=== PATIENT | female | born 1930 | race Caucasian/White ===

== ENCOUNTER 2016-07-03 09:59 | Emergency (ER) | payer OTHER ==
[~2016-07-03] VITALS: Ht 167.6 cm; Wt 73.9 kg
[~2016-07-03 09:59] MED LIST: ACET-1257 PO; ARC5 PO; ASPEC81 PO; ATEN-175 PO; CRANPOW PO; INSU70IN2 SC; LISI-788 PO; LOVA10TA3 PO; MEMA10TA PO; MTHH1 PO; MULT-884 PO; OXYC1TAB3 PO; TRAZ100T29 PO; VITAMIN C PO
[2016-07-03 10:19] VITALS: TEMP 36.9; Ht 167.6 cm; Wt 73.9 kg
[2016-07-03] MEDS ORDERED: SODIUM CHLORIDE 0.9% 1000ML 1,000 ML IV STA (10:26)
[2016-07-03 10:33] VITALS: O2SAT 98
[2016-07-03 10:43] LABS: BASO % 0.3 %; BASO ABS # 0.02 K/uL (0-0.2); COMPLETE YES; EOS % 1.6 %; HEMATOCRIT 35.1 % (37-47); IG% 0.6 %; LYMPH % 19.2 %; MEAN CELL VOLUME 79.6 fL (80-100); MEAN CORPUSCULAR HEMOGLOBIN 25.9 pg (25-34); MEAN CORPUSCULAR HGB CONC 32.5 g/dl (32-36); MEAN PLATELET VOLUME 9.5 fL (7.4-10.4); MONO % 14.2 %; NEUT % 64.1 %; PLATELET COUNT 250 K/uL (130-400); RED BLOOD COUNT 4.41 M/uL (4.2-5.4); WHITE BLOOD COUNT 6.77 K/uL (4.8-10.8)
--- NOTE | 2016-07-03 10:46 | DIAGNOSTIC IMAGING REPORT ---
CHEST ONE VIEW PORTABLE CLINICAL HISTORY: Weakness COMPARISON STUDY: 09/30/2015 FINDINGS: The cardiac and mediastinal contours remain stable. There is no evidence of focal pulmonary consolidation. There is no evidence of failure. No pleural effusions are visualized.[ There are postsurgical changes present within the right shoulder. Indistinctness left cardiophrenic angle remains unchanged and is likely secondary to a fat pad. IMPRESSION: AP portable study. No active disease in the chest. Electronically signed by: Amado Guzman M.D. 07/03/2016 10:45 AM
[2016-07-03 10:51] LABS: ALT/SGPT 17 U/L (12-78); AST/SGOT 20 U/L (15-37); BLOOD UREA NITROGEN 10 mg/dl (7-18); BUN/CREATININE RATIO 8.8 (10-20); CARBON DIOXIDE 26 mmol/L (21-32); CHLORIDE 95 mmol/L (98-107); GLUCOSE 275 mg/dl (70-99); POTASSIUM 3.7 mmol/L (3.5-5.1); SODIUM 131 mmol/L (136-145)
[2016-07-03 10:52] LABS: PARTIAL THROMBOPLASTIN RATIO 1.2; PROTHROMBIN TIME (PATIENT) 11.2 SECONDS (9.0-12.0)
[2016-07-03] MEDS ORDERED: GUAI100S75 PO (10:52)
[2016-07-03] MEDS ORDERED: PROP0.6D OPB (10:52)
[2016-07-03 10:56] LABS: ALKALINE PHOSPHATASE 122 U/L (45-117)
--- NOTE | 2016-07-03 11:01 | DIAGNOSTIC IMAGING REPORT ---
CT HEAD WITHOUT CONTRAST (CT) CLINICAL HISTORY: New onset weakness COMPARISON STUDY: 07/27/2014 TECHNIQUE: Axial CT of the brain is performed from the vertex to the skull base. IV contrast was not administered for this examination. CT DOSE: 537.48 mGy.cm FINDINGS: No intra or extra-axial mass lesions are visualized. There is no CT evidence of acute cortical infarction. There is no evidence of midline shift. There is no acute hemorrhage. No calvarial fractures are visualized. There are patchy white matter hypodensities likely on a small vessel basis. There is mild ventricular dilatation, proportional to the degree of volume loss There is mild bilateral maxilla sinus mucosal thickening. There is opacification of multiple ethmoid air cells. There is mild mucosal thickening within the sphenoid. IMPRESSION: 1. No acute intracranial findings 2. Inflammatory changes within the paranasal sinuses Electronically signed by: Amado Guzman M.D. 07/03/2016 10:59 AM
[2016-07-03 11:10] LABS: URINE APPEARANCE CLEAR (CLEAR); URINE BILIRUBIN NEG (NEG); URINE COLOR YELLOW; URINE EPITHELIAL CELL AUTO 0-5 /lpf (0-5); URINE NITRITE NEG (NEG); URINE PH 6.5 (4.5-7.5); URINE SPECIFIC GRAVITY 1.009 (1.000-1.030); UROBILINOGEN NEG (NEG); ZZURINE CULT IF INDIC CATH YES
[2016-07-03 11:16] LABS: MANUAL MICROSCOPIC REQUIRED? NO; REVIEW REQ? NO
[2016-07-03] MEDS ORDERED: CEFTRIAXONE SOD INJ 1 GM ADDVIAL IV STA (11:18)
[2016-07-03] MEDS ORDERED: CEFD1CAP14 PO (13:09)
[2016-07-03 13:28] VITALS: BP 134/56
[2016-07-03 13:30] VITALS: PULSE 93; O2SAT 98
--- NOTE | 2016-07-03 13:40 | EMERGENCY ROOM VISIT NOTE ---
History Report prepared by Eloy: Alix England Under the Supervision of: Dr. Wilson Wills D.O. First contact with patient: 10:15 Chief Complaint: DIZZY Stated Complaint: DIZZY History of Present Illness The patient is a 85 year old female who presents to the Emergency Room with complaints of resolved dizziness that started this morning. The patient came to the ED via ambulance from [facility]. She describes the dizziness as feeling lightheaded like she was going to experience syncope. The dizziness seemed to be worse with changes in position. She states that it did not feel like the room was spinning. The patient is unsure of when exactly the dizziness resolved , but she is not experiencing it now. She states that she woke up this morning and "wasn't feeling herself." She is unable to explain exactly how she felt. The patient thinks that her sugar numbers were good this morning. Pt denies headache, change in vision, fevers, chest pain, shortness of breath, abdominal pain, nausea, vomiting, diarrhea and weakness or numbness in arms or legs. Her last bowel movement was prior to being evaluated. The patient's daughter states that the jail staff called her and informed her that the patient was going into the ED because she seemed more confused than normal. The patient's daughter states that currently the patient does not seem to be more confused than normal. The patient's daughter adds that the patient has become gradually more confused over the last month. Source of History: patient Onset: this morning Position: head Quality: other (lightheadedness like near-syncope) Timing: resolved Modifying Factors (Worsening): other (changes in position) Associated Symptoms: No SOB, No abdominal pain, No chest pain, No fevers, No headache, No nausea, No vomiting, No weakness Note: no change in vision Review of Systems See HPI for pertinent positives & negatives. A total of 10 systems reviewed and were otherwise negative. Past Medical & Surgical Medical Problems: (1) Diabetes Family History No pertinent family history Social History Smoking Status: Never Smoker Alcohol Use: none Housing Status: lives alone Occupation Status: retired Current/Historical Medications Scheduled Aspirin Enteric Coated (Ecotrin Or Generic *), 81 MG PO DAILY Cefdinir (Omnicef), 300 MG PO Q12H Donepezil Hcl (Aricept *), 5 MG PO HS Guaifenesin (Siltussin Sa), 5-10 ML PO Q4 Insulin Isophan/Regular (Novolin 70/30), 19 UNITS SC QAM Insulin Isophan/Regular (Novolin 70/30), 10 SC QPM Lisinopril/Hctz (Zestoretic 20MG/25MG), 0.5 TAB PO QAM Lovastatin (Mevacor), 10 MG PO QPM Memantine Hcl (Namenda), 10 MG PO BID Methenamine Hippurate (Methenamine Hippurate), 1 GM PO BID Multiple Vitamin (Multi Vitamin Daily), 1 TAB PO DAILY Propylene Glycol-Glycerin (Soothe), 1-2 DROPS OPB DAILY Trazodone Hcl (Trazodone), 100 MG PO DHS [Cranberry], 1 TABLET PO DAILY [Vitamin C], 1 TAB PO BID Scheduled PRN Acetaminophen (Tylenol Extra Strength), 1,000 MG PO DAILY PRN for PRN Allergies Coded Allergies: Clotrimazole (Unverified Allergy, Intermediate, ., 07/03/16) Sulfa Drugs (Verified Allergy, Unknown, HIVES, 07/03/16) Physical Exam Vital Signs Date Time Temp Pulse Resp B/P Pulse Ox O2 Delivery O2 Flow Rate FiO2 07/03/16 13:30 93 23 98 07/03/16 13:28 134/56 07/03/16 13:19 131/59 07/03/16 13:00 97 24 97 07/03/16 12:59 07/03/16 12:30 102 16 97 07/03/16 12:29 155/71 07/03/16 12:02 80 07/03/16 12:00 91 15 07/03/16 11:59 143/79 07/03/16 11:30 83 18 152/79 98 Room Air 07/03/16 10:33 98 Room Air 07/03/16 10:33 98 Room Air 07/03/16 10:32 105 133/78 110 135/76 116 112/66 07/03/16 10:19 36.9 111 20 156/80 98 Room Air Physical Exam GENERAL: alert, sitting up in bed, ambulates through room without difficulty, well appearing, well nourished, no distress, non-toxic EYE EXAM: normal conjunctiva, PERRL and EOM's intact OROPHARYNX: no exudate, no erythema, lips, buccal mucosa, and tongue normal and mucous membranes are moist NECK: supple, no nuchal rigidity, no adenopathy, non-tender LUNGS: Clear to auscultation. Normal chest wall mechanics HEART: tachycardic rate, no murmurs, S1 normal and S2 normal ABDOMEN: abdomen soft, non-tender, normo-active bowel sounds, no masses, no rebound or guarding. BACK: Back is symmetrical on inspection and there is no deformity, no midline tenderness, no CVA tenderness. SKIN: no rashes and no bruising UPPER EXTREMITIES: upper extremities are grossly normal. LOWER EXTREMITIES: No pitting edema. NEURO EXAM: Normal sensorium, cranial nerves II-XII intact, normal speech, no weakness of arms, no weakness of legs. No drift. Finger to nose intact. Gross sensation intact. Rapid alternating movements of upper extremities intact bilaterally. Ambulates without difficulty or assistance. Medical Decision & Procedures ER Provider Diagnostic Interpretation: Xray results per the radiologist and my interpretation. Other results have been interpreted by the radiologist and reviewed by me. CHEST ONE VIEW PORTABLE CLINICAL HISTORY: Weakness COMPARISON STUDY: 09/30/2015 FINDINGS: The cardiac and mediastinal contours remain stable. There is no evidence of focal pulmonary consolidation. There is no evidence of failure. No pleural effusions are visualized.[ There are postsurgical changes present within the right shoulder. Indistinctness left cardiophrenic angle remains unchanged and is likely secondary to a fat pad. IMPRESSION: AP portable study. No active disease in the chest. Electronically signed by: Amado Guzman M.D. 07/03/2016 10:[address] HEAD WITHOUT CONTRAST (CT) CLINICAL HISTORY: New onset weakness COMPARISON STUDY: 07/27/2014 TECHNIQUE: Axial CT of the brain is performed from the vertex to the skull base. IV contrast was not administered for this examination. CT DOSE: 537.48 mGy.cm FINDINGS: No intra or extra-axial mass lesions are visualized. There is no CT evidence of acute cortical infarction. There is no evidence of midline shift. There is no acute hemorrhage. No calvarial fractures are visualized. There are patchy white matter hypodensities likely on a small vessel basis. There is mild ventricular dilatation, proportional to the degree of volume loss There is mild bilateral maxilla sinus mucosal thickening. There is opacification of multiple ethmoid air cells. There is mild mucosal thickening within the sphenoid. IMPRESSION: 1. No acute intracranial findings 2. Inflammatory changes within the paranasal sinuses Electronically signed by: Amado Guzman M.D. 07/03/2016 10:59 AM Laboratory Results 07/03/16 09:44 Red Blood Count 4.41, Mean Corpuscular Volume 79.6, Mean Corpuscular Hemoglobin 25.9, Mean Corpuscular Hemoglobin Concent 32.5, Mean Platelet Volume 9.5, Neutrophils (%) (Auto) 64.1, Lymphocytes (%) (Auto) 19.2, Monocytes (%) (Auto) 14.2, Eosinophils (%) (Auto) 1.6, Basophils (%) (Auto) 0.3, Neutrophils # (Auto ) 4.34, Lymphocytes # (Auto) 1.30, Monocytes # (Auto) 0.96, Eosinophils # (Auto ) 0.11, Basophils # (Auto) 0.02 07/03/16 09:44 Test 07/03/16 09:44 07/03/16 10:41 White Blood Count 6.77 K/uL (4.8-10.8) Red Blood Count 4.41 M/uL (4.2-5.4) Hemoglobin 11.4 g/dL (12.0-16.0) Hematocrit 35.1 % (37-47) Mean Corpuscular Volume 79.6 fL (80-100) Mean Corpuscular Hemoglobin 25.9 pg (25-34) Mean Corpuscular Hemoglobin Concent 32.5 g/dl (32-36) Platelet Count 250 K/uL (130-400) Mean Platelet Volume 9.5 fL (7.4-10.4) Neutrophils (%) (Auto) 64.1 % Lymphocytes (%) (Auto) 19.2 % Monocytes (%) (Auto) 14.2 % Eosinophils (%) (Auto) 1.6 % Basophils (%) (Auto) 0.3 % Neutrophils # (Auto) 4.34 K/uL (1.4-6.5) Lymphocytes # (Auto) 1.30 K/uL (1.2-3.4) Monocytes # (Auto) 0.96 K/uL (0.11-0.59) Eosinophils # (Auto) 0.11 K/uL (0-0.5) Basophils # (Auto) 0.02 K/uL (0-0.2) RDW Standard Deviation 42.4 fL (36.4-46.3) RDW Coefficient of Variation 14.7 % (11.5-14.5) Immature Granulocyte % (Auto) 0.6 % Immature Granulocyte # (Auto) 0.04 K/uL (0.00-0.02) Prothrombin Time 11.2 SECONDS (9.0-12.0) Prothromb Time International Ratio 1.0 (0.9-1.1) Activated Partial Thromboplast Time 30.9 SECONDS (21.0-31.0) Partial Thromboplastin Ratio 1.2 Anion Gap 10.0 mmol/L (3-11) Est Creatinine Clear Calc Drug Dose 37.0 ml/min Estimated GFR () 52.3 Estimated GFR (Non- 45.1 BUN/Creatinine Ratio 8.8 (10-20) Calcium Level 8.0 mg/dl (8.5-10.1) Magnesium Level 2.0 mg/dl (1.8-2.4) Total Bilirubin 0.4 mg/dl (0.2-1) Direct Bilirubin 0.1 mg/dl (0-0.2) Aspartate Amino Transf (AST/SGOT) 20 U/L (15-37) Alanine Aminotransferase (ALT/SGPT) 17 U/L (12-78) Alkaline Phosphatase 122 U/L (45-117) Troponin I < 0.015 ng/ml (0-0.045) Total Protein 6.4 gm/dl (6.4-8.2) Albumin 2.9 gm/dl (3.4-5.0) Urine Color YELLOW Urine Appearance CLEAR (CLEAR) Urine pH 6.5 (4.5-7.5) Urine Specific [place] 1.009 (1.000-1.030) Urine Protein NEG (NEG) Urine Glucose (UA) 1+ (NEG) Urine Ketones NEG (NEG) Urine Occult Blood NEG (NEG) Urine Nitrite NEG (NEG) Urine Bilirubin NEG (NEG) Urine Urobilinogen NEG (NEG) Urine Leukocyte Esterase MODERATE (NEG) Urine WBC (Auto) >30 /hpf (0-5) Urine RBC (Auto) 0-4 /hpf (0-4) Urine Hyaline Casts (Auto) 1-5 /lpf (0-5) Urine Epithelial Cells (Auto) 0-5 /lpf (0-5) Urine Bacteria (Auto) 2+ (NEG) Laboratory results per my review. Medications Administered Medications (Trade) Dose Ordered Sig/Rocio Route Start Time Stop Time Status Last Admin Dose Admin Sodium Chloride (Nss 1000ml) 1,000 ml @ 999 mls/hr Q1H1M STAT IV 07/03/16 10:26 07/03/16 11:26 DC 07/03/16 10:43 999 MLS/HR Ceftriaxone Sodium (Rocephin Inj) 1 gm NOW STAT IV 07/03/16 11:18 07/03/16 11:19 DC 07/03/16 11:28 1 GM ECG Indication: altered mental status Rate (beats per minute): 103 Rhythm: sinus tachycardia Findings: other (normal axis, poor baseline in inferior leads) ED Course ED COURSE: Vital signs were reviewed and showed tachycardia and hypertension. The patients medical record was reviewed The above diagnostic studies were performed and reviewed. ED treatments and interventions as stated above. 1017: The patient was evaluated in room B11. A complete history and physical examination was performed. 1026: Ordered Sodium Chloride 1000 ml @ 999 mls/hr IV 1118: Ordered Rocephin Inj 1 gm IV 1141: I reassessed and updated the patient. 1208: I discussed the patient's case with the staff at [facility]. They said that they sent the patient over because she was not talking and interacting with people like she normally does. She also appeared to be more confused. 1237: I had a long conversation with the patient's daughter. She prefers to take the patient back to the jail. I also reviewed the patient's previous urine cultures. She had 3 previous UTIs that were all susceptible to Levaquin. 1318: Upon reevaluation, the patient is doing well. I discussed my findings with the patient and her daughter. They understand and agree with the treatment plan. Based on the patients age, coexisting illnesses, exam and lab findings the decision to treat as an outpatient was made. The patient remained stable while under my care. The patient appeared well at the time of discharge. Medical Decision Differential diagnosis includes etiologies such as benign positional vertigo, dehydration, hypovolemia, anemia, tumor, infection, hypoglycemia, electrolyte abnormalities, cardiac sources, intracerebral event, toxicologic, neurologic, as well as others were entertained. Patient is an 85-year-old female who presents the ER for confusion. Family notes this has been worsening with past 2 months. jail today says she was sitting in chair and she was not as interactive as she normally is. Daughter notes that she told her 2 different stories of how she went to bed last night and this is not normal for her. Patient is otherwise awake alert oriented to person place or time. She is nonfocal on exam. Completely neurologically intact. CT head was normal. She describes orthostatic lightheadedness. CBC along with BMP, LFTs are unremarkable. UA shows a UTI. Previous cultures were reviewed and she is placed on Omnicef following a dose of IV Rocephin. Vitals remained stable in the ER. I discussed case with jail and they are agreeable to taking her back on oral antibiotics. Family was also comfortable with her leaving. I thought it was reasonable as she was nonfocal I do not believe this is a stroke. Discussed with Pt concerning signs and symptoms to watch out for. Pt was instructed to follow up with their PCP and discussed with the patient their option to return to the ED at anytime for persistent or worsening symptoms. The appropriate anticipatory guidance and out-patient management, including indications for return to the emergency department, were explained at length to the patient and understood. Consults Time Called: 1203 Consulting Physician: [facility] Staff Returned Call: 1208 I discussed the patient's case with the staff at [facility]. They said that they sent the patient over because she was not talking and interacting with people like she normally does. She also appeared to be more confused. Impression Primary Impression: UTI (urinary tract infection) Additional Impressions: Altered mental status, Confusion Scribe Attestation The scribe's documentation has been prepared under my direction and personally reviewed by me in its entirety. I confirm that the note above accurately reflects all work, treatment, procedures, and medical decision making performed by me. Departure Information Dispostion Home / Self-Care Prescriptions Cefdinir (Omnicef) 300 Mg Cap 300 MG PO Q12H for 10 Days, #20 CAP Prov: Wilson Wills, DO 07/03/16 Referrals Derian Davis M.D. (PCP) Forms HOME CARE DOCUMENTATION FORM, IMPORTANT VISIT INFORMATION Patient Instructions A Signature Page, ED UTI Cystitis Female, My [facility] Additional Instructions Please follow up with your primary care doctor with in the next 24 hours. Any worsening of your symptoms, please return to the ED immediately. This includes fevers greater than 100.4, worsening confusion, passing out, or any other concerning signs or symptoms from your standpoint. Please take antibiotics as prescribed any worsening of your symptoms should return to the ER immediately.
--- NOTE | 2016-07-05 14:50 | Pharmacy Progress Note ---
ED Pharmacist Culture FollowUp Date of Service: Jul 05, 2016. Patient was sent home with a prescription for cefdinir, which should cover the Enterobacter cloacae growing from the patient's urine culture (indicated by ceftriaxone sensitivity)
== END 2016-07-03 13:50 | disposition home or self-care (01) ==
LOC: EDBD 09:59 → C.EDB 10:01
DX: N39.0 Urinary tract infection, site not specified (principal); R41.82 Altered mental status, unspecified; R41.0 Disorientation, unspecified; R42 Dizziness and giddiness; R00.0 Tachycardia, unspecified; I10 Essential (primary) hypertension; E11.9 Type 2 diabetes mellitus without complications; Z79.4 Long term (current) use of insulin; Z79.82 Long term (current) use of aspirin; Z79.899 Other long term (current) drug therapy; Z88.2 Allergy status to sulfonamides; Z88.8 Allergy status to other drugs, medicaments and biological substances

== ENCOUNTER → 2016-07-12 | Outpatient (CLI) | payer OTHER ==
[~2016-07-12] MED LIST changes: -ATEN-175 PO; +CEFD1CAP14 PO; +GUAI100S75 PO; -OXYC1TAB3 PO; +PROP0.6D OPB
[2016-07-12 14:09] LABS: URINE APPEARANCE TURBID (CLEAR); URINE BILIRUBIN NEG (NEG); URINE COLOR DK YELLOW; URINE EPITHELIAL CELL AUTO 20-30 /lpf (0-5); URINE NITRITE NEG (NEG); URINE SPECIFIC GRAVITY 1.006 (1.000-1.030); UROBILINOGEN NEG (NEG)
[2016-07-12 14:21] LABS: MANUAL MICROSCOPIC REQUIRED? NO; REVIEW REQ? YES
== END | disposition home or self-care (01) ==
LOC: C.LABWYN 12:42
PROVIDERS: ATTEND Family Medicine
DX: N39.0 Urinary tract infection, site not specified (principal)

== ENCOUNTER → 2016-11-22 | Outpatient (CLI) | payer OTHER ==
[~2016-11-22] MED LIST changes: +AMOX875T PO; +ASCO1CAP3 PO; +ASPI-435 PO; +BCTCR/30 EXT; -CEFD1CAP14 PO; +CRAN1TAB3 PO; +DONE1TAB25 PO; +FAMO1TAB47 PO; +FAMO20TA11 PO; +INSDGI INJ; +INSDGI SC; +INSU100I23 INJ; +MVC20 PO
[2016-11-22 12:39] LABS: BLOOD UREA NITROGEN 5 mg/dl (7-18); BUN/CREATININE RATIO 5.3 (10-20); CARBON DIOXIDE 28 mmol/L (21-32); CHLORIDE 104 mmol/L (98-107); CREATININE 0.89 mg/dl (0.60-1.20); GLUCOSE 155 mg/dl (70-99); POTASSIUM 3.6 mmol/L (3.5-5.1); SODIUM 140 mmol/L (136-145)
[2016-11-22 12:40] LABS: CALCIUM 8.8 mg/dl (8.5-10.1)
[2016-11-22 12:42] LABS: ESTIMATED AVERAGE GLUCOSE 128 mg/dl; HA1C FLAG Normal (Normal)
== END | disposition home or self-care (01) ==
LOC: C.LABWYN 15:54
PROVIDERS: ATTEND Family Medicine
DX: E11.9 Type 2 diabetes mellitus without complications (principal); F03.91 Unspecified dementia, unspecified severity, with behavioral disturbance; I10 Essential (primary) hypertension

== ENCOUNTER 2017-04-20 15:28 | Inpatient (IN) | payer OTHER ==
[~2017-04-20] VITALS: Ht 160 cm; Wt 64.0 kg
[~2017-04-20 15:28] MED LIST changes: -AMOX875T PO; -ASCO1CAP3 PO; -ASPI-435 PO; -BCTCR/30 EXT; -CRAN1TAB3 PO; -DONE1TAB25 PO; -FAMO1TAB47 PO; -FAMO20TA11 PO; -INSDGI INJ; -INSDGI SC; -INSU100I23 INJ; -MVC20 PO
[2017-04-20] MEDS ORDERED: ONDANSETRON INJ 2 MG/ML 2 ML VIAL IV STA ×2 (15:40→18:10)
[2017-04-20 16:12] LABS: BASO % 0.3 %; BASO ABS # 0.03 K/uL (0-0.2); COMPLETE YES; HEMATOCRIT 30.4 % (37-47); IG% 0.2 %; LYMPH % 17.7 %; LYMPH ABS # 1.57 K/uL (1.2-3.4); MEAN CELL VOLUME 77.6 fL (80-100); MEAN CORPUSCULAR HGB CONC 32.2 g/dl (32-36); MEAN PLATELET VOLUME 9.1 fL (7.4-10.4); MONO % 9.4 %; NEUT % 70.4 %; PLATELET COUNT 336 K/uL (130-400); RED BLOOD COUNT 3.92 M/uL (4.2-5.4); WHITE BLOOD COUNT 8.85 K/uL (4.8-10.8)
[2017-04-20 16:31] LABS: BUN/CREATININE RATIO 14.2 (10-20); CALCIUM 8.4 mg/dl (8.5-10.1); CREATININE 0.88 mg/dl (0.60-1.20); POTASSIUM 3.3 mmol/L (3.5-5.1)
[2017-04-20] MEDS ORDERED: ASCO1CAP3 PO (16:42)
[2017-04-20] MEDS ORDERED: DONE1TAB25 PO (16:42)
[2017-04-20] MEDS ORDERED: CRAN1TAB3 PO (16:42)
[2017-04-20] MEDS ORDERED: ASPI-435 PO (16:42)
[2017-04-20] MEDS ORDERED: BCTCR/30 EXT (16:42)
[2017-04-20] MEDS ORDERED: OPTIRAY 320 IV PRN (19:15)
--- NOTE | 2017-04-20 19:28 | DIAGNOSTIC IMAGING REPORT ---
CT SCAN OF THE ABDOMEN AND PELVIS WITH IV CONTRAST CLINICAL HISTORY: Right-sided abdominal pain. Palpable mass. COMPARISON STUDY: No priors. TECHNIQUE: Following the IV administration of 116 cc of Optiray 320, CT scan of the abdomen and pelvis is performed from the lung bases to the proximal femora. Images are reviewed in the axial, sagittal, and coronal planes. There is an IV malfunction during the initial contrast injection. IV contrast was then administered without complication. A dose lowering technique was utilized adhering to the principles of ALARA. The examination is degraded by suboptimal positioning within the CT gantry as well as by motion artifact. CT DOSE: 367.52 mGy.cm FINDINGS: Lung bases: The heart is normal in size and without pericardial effusion. There are coronary artery calcifications. A small hiatal hernia is noted. Mild wall thickening is suggested in the distal esophagus. There are trace pleural effusions with dependent atelectasis. No airspace consolidation is seen typical for pneumonia. Liver: The contrast-enhanced liver is normal in size, contour, and attenuation. There is mild central intrahepatic biliary ductal dilatation. The hepatic veins and portal veins are patent. Gallbladder: Contracted versus surgically absent. Spleen: Normal in size and attenuation. Pancreas: Atrophic and grossly unremarkable. Adrenal glands: Unremarkable. Kidneys: The contrast enhanced kidneys are atrophic and without hydronephrosis. The kidneys enhance symmetrically. Excreted contrast is present within the renal collecting system bilaterally secondary to IV malfunction. There is a 2.6 cm left renal cyst. Additional scattered subcentimeter cortical hypodensities also likely represent cysts but are too small for definitive characterization. Abdominal vasculature: The abdominal aorta is normal in course and caliber noting advanced atherosclerotic calcification. Bowel: The stomach and proximal small bowel loops are distended and fluid-filled. Small bowel loops measure up to 4.2 cm in diameter. The distal small bowel and colon are relatively decompressed, and a transition point is identified in the right lower quadrant on image #313. The appearance is consistent with a small bowel obstruction. There is approximately 4 cm circumferential mass lesion suggested in the transverse colon on axial image #212 with tiny surrounding pericolonic lymph nodes. A duodenal diverticulum is noted. There is advanced diverticulosis of left colon without CT evidence of acute diverticulitis. The appendix is well-visualized and normal. Peritoneum: There is trace free fluid in the pelvis. No intraperitoneal free air is seen. There is a fat-containing ventral hernia seen on axial image #260. There is fluid within the hernia sac. Mild induration is seen within the ventral abdominal pannus. Lymphadenopathy: None. Pelvic viscera: There are small foci of gas within the bladder lumen. The bladder is otherwise normal as imaged. The uterus is surgically absent. No adnexal lesion is seen. Skeletal structures: The skeletal structures are heterogeneously osteopenic. There is mild to moderate lumbosacral spondylosis and scoliosis. There is tobacco thickening and sclerosis of the T9 vertebral body with mild loss of height. The appearance suggests Pagetoid change. No definite lytic or blastic lesions are seen. IMPRESSION: 1. Findings are consistent with a small bowel obstruction with a transition point identified involving a loop of ileum in the right lower quadrant. The distal small bowel and colon are decompressed. 2. No intraperitoneal free air is seen. Trace free fluid in the pelvis is likely on a reactive basis. 3. There is an approximately 4 cm annular mass lesion suggested in the transverse colon. This should be considered colon cancer until proven otherwise and follow-up with colonoscopy is recommended for further assessment. This does not represent the site of obstruction. 4. There are small foci of gas within the bladder lumen, likely related to instrumentation. Correlation with urinalysis will be required. 5. Trace pleural effusions. 6. Circumferential wall thickening is suggested in the distal esophagus. Correlate clinically for evidence of esophagitis. If further assessment is desired then endoscopy would be appropriate. 7. There is a large fat and fluid containing ventral hernia. 8. There is trabecular thickening and dense sclerosis seen involving the body of T9. 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 A solitary osteoblastic metastasis is considered much less likely. 9. Additional findings as above. Electronically signed by: Stephan Geller M.D. 04/20/2017 7:27 PM Dictated Date/Time: 04/20/2017 7:12 PM
[2017-04-20] MEDS ORDERED: ONDANSETRON INJ 2 MG/ML 2 ML VIAL IV PRN (20:30)
[2017-04-20] MEDS ORDERED: ACETAMINOPHEN IV 100 ML IV PRN (20:30)
[2017-04-20] MEDS ORDERED: MoRPHine SULFATE 2 MG/ML CARP IV PRN (20:30)
[2017-04-20] MEDS ORDERED: GLUCAGON FOR INJ 1 MG VIAL SQ PRN (20:30)
[2017-04-20] MEDS ORDERED: DEXTROSE 50% 50 ML SYR IV PRN (20:30)
[2017-04-20] MEDS ORDERED: GLUCOSE 10 TABS/TUBE PO PRN (20:30)
[2017-04-20] MEDS ORDERED: MoRPHine SULFATE 4 MG/ML 1 ML CARP\\VIAL IV PRN (20:30)
[2017-04-20] MEDS ORDERED: GLUCOSE 40% GEL 15 GM TUBE PO PRN (20:30)
[2017-04-20 20:39] VITALS: BMI 25.0
[2017-04-20] MEDS ORDERED: INSULIN ASPART 100 UNITS/ML 3 ML PEN SC SCH (21:00)
[2017-04-20] MEDS ORDERED: PIPERACILL/TAZOBAC IV 3.375 GM in DEXTROSE 5% 100ML IV STA (21:21)
[2017-04-20] MEDS ORDERED: PIPERACILL/TAZOBAC CONSULT ACTIVE PRN (21:30)
--- NOTE | 2017-04-20 21:51 | EMERGENCY ROOM VISIT NOTE ---
History Report prepared by Eloy: Pablo Castillo Under the Supervision of: Dr. Thiago Shelton M.D. First contact with patient: 15:34 Chief Complaint: ABDOMINAL PAIN Stated Complaint: AB PAIN History of Present Illness The patient is a 86 year old female who presents to the Emergency Room with complaints of constant central abdominal pain beginning five days ago. She states that she had diarrhea six days ago which resolved after one day. She states that she developed an abdominal "bulge" shortly after this which is painful to the touch. The patient does not believe that her abdomen is getting larger. Her pain worsens with eating. Her pain radiates into her lower chest. The patient's last normal bowel movement was this morning. She also complains of nausea. She denies pain with urination, fevers, black or bloody stools, or SOB. Source of History: patient Onset: Five days ago Position: abdomen (central) Timing: constant Modifying Factors (Worsening): eating Associated Symptoms: + nausea, + diarrhea (resolved), No fevers, No SOB, No melena, No hematochezia, No urinary symptoms (pain with urination) Review of Systems See HPI for pertinent positives & negatives. A total of 10 systems reviewed and were otherwise negative. Past Medical & Surgical Medical Problems: (1) Diabetes (2) SBO (small bowel obstruction) Family History No pertinent family history Social History Smoking Status: Never Smoker Alcohol Use: none Housing Status: lives alone Occupation Status: retired Current/Historical Medications Scheduled Ascorbic Acid (Vitamin C), 250 MG PO DAILY Aspirin (Aspirin 81), 81 MG PO DAILY Cranberry (Vaccinium Macrocarp (Cranberry), 450 MG PO DAILY Donepezil Hydrochloride (Donepezil Hcl), 5 MG PO DAILY Insulin Isophan/Regular (Novolin 70/30), 17 UNITS SC QAM Insulin Isophan/Regular (Novolin 70/30), 10 SC QPM Lisinopril/Hctz (Zestoretic 20MG/25MG), 0.5 TAB PO QAM Lovastatin (Mevacor), 10 MG PO QPM Memantine Hcl (Namenda), 10 MG PO BID Methenamine Hippurate (Methenamine Hippurate), 1 GM PO BID Multiple Vitamin (Multi Vitamin Daily), 1 TAB PO DAILY Mupirocin 2% (Bactroban 2%), 1 APPLN EXT UD Propylene Glycol-Glycerin (Soothe), 1-2 DROPS OPB DAILY Trazodone Hcl (Trazodone), 100 MG PO DHS Scheduled PRN Acetaminophen (Tylenol Extra Strength), 1,000 MG PO DAILY PRN for PRN Allergies Coded Allergies: Clotrimazole (Unverified Allergy, Intermediate, ., 04/20/17) Sulfa Antibiotics (Verified Allergy, Unknown, HIVES, 04/20/17) Physical Exam Vital Signs Date Time Temp Pulse Resp B/P (MAP) Pulse Ox O2 Delivery O2 Flow Rate FiO2 04/20/17 21:30 104 106/80 94 Room Air 04/20/17 20:39 Room Air 04/20/17 19:22 99 149/92 98 Room Air 04/20/17 18:47 71 138/61 100 Room Air 04/20/17 16:54 79 144/61 93 Room Air 04/20/17 15:39 37.1 85 133/71 100 Room Air Physical Exam Constitutional: Vital signs reviewed. Eyes: Pupils are equal round reactive to light. Conjunctiva are noninjected. ENT: Pharynx is clear without erythema or exudate. Mucous membranes are moist. Neck supple without meningeal signs. Respiratory: Clear to auscultation bilaterally. Breath sounds are equal bilaterally. Cardiovascular: Regular rate and rhythm. No rubs or gallops. GI: Soft, and nondistended. Bowel sounds are present. Right periumbilical mass with tenderness. Rectal: Guaiac-negative brown stool. Musculoskeletal: No peripheral edema. No lower extremity tenderness. Integumentary: No cyanosis. Neurological: The patient is awake and alert. No focal deficits. Psychiatric: Normal affect. Medical Decision & Procedures ER Provider Diagnostic Interpretation: CT results as stated below per my review and radiologist interpretation. CT SCAN OF THE ABDOMEN AND PELVIS WITH IV CONTRAST FINDINGS: Lung bases: The heart is normal in size and without pericardial effusion. There are coronary artery calcifications. A small hiatal hernia is noted. Mild wall thickening is suggested in the distal esophagus. There are trace pleural effusions with dependent atelectasis. No airspace consolidation is seen typical for pneumonia. Liver: The contrast-enhanced liver is normal in size, contour, and attenuation. There is mild central intrahepatic biliary ductal dilatation. The hepatic veins and portal veins are patent. Gallbladder: Contracted versus surgically absent. Spleen: Normal in size and attenuation. Pancreas: Atrophic and grossly unremarkable. Adrenal glands: Unremarkable. Kidneys: The contrast enhanced kidneys are atrophic and without hydronephrosis. The kidneys enhance symmetrically. Excreted contrast is present within the renal collecting system bilaterally secondary to IV malfunction. There is a 2.6 cm left renal cyst. Additional scattered subcentimeter cortical hypodensities also likely represent cysts but are too small for definitive characterization. Abdominal vasculature: The abdominal aorta is normal in course and caliber noting advanced atherosclerotic calcification. Bowel: The stomach and proximal small bowel loops are distended and fluid-filled. Small bowel loops measure up to 4.2 cm in diameter. The distal small bowel and colon are relatively decompressed, and a transition point is identified in the right lower quadrant on image #313. The appearance is consistent with a small bowel obstruction. There is approximately 4 cm circumferential mass lesion suggested in the transverse colon on axial image #212 with tiny surrounding pericolonic lymph nodes. A duodenal diverticulum is noted. There is advanced diverticulosis of left colon without CT evidence of acute diverticulitis. The appendix is well-visualized and normal. Peritoneum: There is trace free fluid in the pelvis. No intraperitoneal free air is seen. There is a fat-containing ventral hernia seen on axial image #260. There is fluid within the hernia sac. Mild induration is seen within the ventral abdominal pannus. Lymphadenopathy: None. Pelvic viscera: There are small foci of gas within the bladder lumen. The bladder is otherwise normal as imaged. The uterus is surgically absent. No adnexal lesion is seen. Skeletal structures: The skeletal structures are heterogeneously osteopenic. There is mild to moderate lumbosacral spondylosis and scoliosis. There is tobacco thickening and sclerosis of the T9 vertebral body with mild loss of height. The appearance suggests Pagetoid change. No definite lytic or blastic lesions are seen. IMPRESSION: 1. Findings are consistent with a small bowel obstruction with a transition point identified involving a loop of ileum in the right lower quadrant. The distal small bowel and colon are decompressed. 2. No intraperitoneal free air is seen. Trace free fluid in the pelvis is likely on a reactive basis. 3. There is an approximately 4 cm annular mass lesion suggested in the transverse colon. This should be considered colon cancer until proven otherwise and follow-up with colonoscopy is recommended for further assessment. This does not represent the site of obstruction. 4. There are small foci of gas within the bladder lumen, likely related to instrumentation. Correlation with urinalysis will be required. 5. Trace pleural effusions. 6. Circumferential wall thickening is suggested in the distal esophagus. Correlate clinically for evidence of esophagitis. If further assessment is desired then endoscopy would be appropriate. 7. There is a large fat and fluid containing ventral hernia. 8. There is trabecular thickening and dense sclerosis seen involving the body of T9. 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 A solitary osteoblastic metastasis is considered much less likely. 9. Additional findings as above. Electronically signed by: Stephan Geller M.D. 04/20/2017 7:27 PM Laboratory Results 04/20/17 16:00 Red Blood Count 3.92, Mean Corpuscular Volume 77.6, Mean Corpuscular Hemoglobin 25.0, Mean Corpuscular Hemoglobin Concent 32.2, Mean Platelet Volume 9.1, Neutrophils (%) (Auto) 70.4, Lymphocytes (%) (Auto) 17.7, Monocytes (%) (Auto) 9.4, Eosinophils (%) (Auto) 2.0, Basophils (%) (Auto) 0.3, Neutrophils # (Auto) 6.22, Lymphocytes # (Auto) 1.57, Monocytes # (Auto) 0.83, Eosinophils # (Auto) 0.18, Basophils # (Auto) 0.03 04/20/17 16:00 Test 04/20/17 16:00 04/20/17 16:09 White Blood Count 8.85 K/uL (4.8-10.8) Red Blood Count 3.92 M/uL (4.2-5.4) Hemoglobin 9.8 g/dL (12.0-16.0) Hematocrit 30.4 % (37-47) Mean Corpuscular Volume 77.6 fL (80-100) Mean Corpuscular Hemoglobin 25.0 pg (25-34) Mean Corpuscular Hemoglobin Concent 32.2 g/dl (32-36) Platelet Count 336 K/uL (130-400) Mean Platelet Volume 9.1 fL (7.4-10.4) Neutrophils (%) (Auto) 70.4 % Lymphocytes (%) (Auto) 17.7 % Monocytes (%) (Auto) 9.4 % Eosinophils (%) (Auto) 2.0 % Basophils (%) (Auto) 0.3 % Neutrophils # (Auto) 6.22 K/uL (1.4-6.5) Lymphocytes # (Auto) 1.57 K/uL (1.2-3.4) Monocytes # (Auto) 0.83 K/uL (0.11-0.59) Eosinophils # (Auto) 0.18 K/uL (0-0.5) Basophils # (Auto) 0.03 K/uL (0-0.2) RDW Standard Deviation 42.8 fL (36.4-46.3) RDW Coefficient of Variation 15.2 % (11.5-14.5) Immature Granulocyte % (Auto) 0.2 % Immature Granulocyte # (Auto) 0.02 K/uL (0.00-0.02) Anion Gap 8.0 mmol/L (3-11) Est Creatinine Clear Calc Drug Dose 39.8 ml/min Estimated GFR () 68.0 Estimated GFR (Non- 58.7 BUN/Creatinine Ratio 14.2 (10-20) Calcium Level 8.4 mg/dl (8.5-10.1) Total Bilirubin 0.4 mg/dl (0.2-1) Direct Bilirubin 0.1 mg/dl (0-0.2) Aspartate Amino Transf (AST/SGOT) 21 U/L (15-37) Alanine Aminotransferase (ALT/SGPT) 15 U/L (12-78) Alkaline Phosphatase 92 U/L (45-117) Total Protein 6.4 gm/dl (6.4-8.2) Albumin 2.7 gm/dl (3.4-5.0) Lipase 103 U/L (73-393) Bedside Glucose 85 mg/dl (70-90) Laboratory results as reviewed by me. Medications Administered Medications (Trade) Dose Ordered Sig/Rocio Route Start Time Stop Time Status Last Admin Dose Admin Ondansetron HCl (Zofran Inj) 4 mg NOW STAT IV 04/20/17 15:40 04/20/17 15:42 DC 04/20/17 16:00 4 MG Ondansetron HCl (Zofran Inj) 4 mg NOW STAT IV 04/20/17 18:10 04/20/17 18:11 DC 04/20/17 18:23 4 MG ECG Indication: abdominal pain Rate (beats per minute): 82 Rhythm: normal sinus Findings: no acute ischemic change, no ectopy ED Course 1534: The patient was evaluated in room B9. A complete history and physical exam was performed. 1539: Ordered Zofran Inj 4 mg IV. 1649: Discussed CT results and anemia with the patient. Rectal exam was negative. 1809: The patient is complaining of nausea. Ordered Zofran 4 mg IV. 1954: Upon reevaluation, the patient is resting comfortably. I discussed tonight 's findings with her. She verbalized agreement of the treatment plan. The patient will be evaluated for further management. Medical Decision This is an 86-year-old female who presents with abdominal pain. Differential diagnosis includes umbilical hernia, incarceration, strangulation, bowel obstruction, dyspepsia, mass. I did perform a limited focused review of portions of the patient's old chart on the electronic medical record. The patient has had no recent pertinent visits to this hospital. I did evaluate the patient as noted above. The patient is presenting with abdominal pain for a week. She states that she has not been able to eat very much although she did have a normal bowel movement this morning. IV access was established. I did treat the patient with Zofran IV. I did order and personally review the patient's 12-lead EKG as described above. I did order and review the patient's blood work as noted in the electronic medical record. She has anemia. I did perform a rectal examination which showed guaiac negative brown stool. She also has mild hyponatremia and hypokalemia. I did order a CT of the abdomen and pelvis. I did review the images myself as well as the radiology report as described above. She does have a small bowel obstruction as well as a ventral hernia and colonic mass. I did discuss case with Dr. Dong of surgery. He recommended conservative management with NG tube and admission to medicine. I did discuss the test results with the patient and her family. I did order an NG tube. I did discuss the case with the hospitalist. Medication Reconcilliation Current Medication List: was personally reviewed by me Blood Pressure Screening Patient's blood pressure: Elevated blood pressure Blood pressure disposition: Elevated BP felt to be situational Consults Time Called: 1946 Consulting Physician: Dr. Dong -General Surgery Returned Call: [address] Dong of General Surgery. We discussed the patient's case. Dr. Dong feels that there is no need for emergent surgical intervention. He recommends conservative treatment with NG tube and admission to the hospital. Additional Consults: Time Called: 1952 Consulted Physician: Dr. Barron -[facility] Returned Call: [id number] Additional Comments: I spoke with Dr. Barron of [facility]. We discussed the patient and her results. The patient will be further evaluated by [facility]. Impression Primary Impression: SBO (small bowel obstruction) Additional Impressions: Colonic mass Ventral hernia Anemia Hypokalemia Hyponatremia Scribe Attestation The scribe's documentation has been prepared under my direct and personally reviewed by me in its entirety. I confirm that the note above accurately reflects all work, treatment, procedures, and medical decision making performed by me. Departure Information Dispostion Being Evaluated By Hospitalist Referrals CARLEE ESTEVEZ (PCP) Patient Instructions [facility] Problem Qualifiers Additional Impressions: Ventral hernia Obstruction and gangrene presence: without obstruction or gangrene Qualified Codes: K43.9 - Ventral hernia without obstruction or gangrene Anemia Anemia type: unspecified type Qualified Codes: D64.9 - Anemia, unspecified
[2017-04-20 22:00] VITALS: BP 151/78; PULSE 100; TEMP 36.8; Ht 160 cm; Wt 64.0 kg
--- NOTE | 2017-04-20 22:10 | History and Physical ---
History & Physical Date & Time of Service: Apr 20, 2017 at 21:50 Chief Complaint: Ab Pain Primary Care Physician: Leslee Bay History of Present Illness Source: patient, family, hospital records The patient is an 86-year-old female who presents emergency department with progressively worsening right lower quadrant and generalized abdominal pain with nausea and vomiting. She has history of multiple abdominal surgeries including cholecystectomy and hysterectomy. CT scan of the abdomen and pelvis with contrast in the emergency department reveals a small bowel obstruction with transition point in the right lower quadrant, and she is referred for evaluation for admission. Past Medical/Surgical History Medical Problems: (1) Diabetes Status: Chronic Family History No pertinent family history Social History Smoking Status: Never Smoker Smokeless Tobacco Use: No Alcohol Use: none Drug Use: none Housing status: lives alone Occupational Status: retired Immunizations History of Influenza Vaccine: Yes Influenza Vaccine Date: May 06, 2010 History of Tetanus Vaccine?: Yes Tetanus Immunization Date: Dec 04, 2010 History of Pneumococcal: No History of Hepatitis B Vaccine: No Multi-Drug Resistant Organisms History of MDRO: No Allergies Coded Allergies: Clotrimazole (Unverified Allergy, Intermediate, ., 04/20/17) Sulfa Antibiotics (Verified Allergy, Unknown, HIVES, 04/20/17) Home Medications Scheduled Ascorbic Acid (Vitamin C), 250 MG PO DAILY Aspirin (Aspirin 81), 81 MG PO DAILY Cranberry (Vaccinium Macrocarp (Cranberry), 450 MG PO DAILY Donepezil Hydrochloride (Donepezil Hcl), 5 MG PO DAILY Insulin Isophan/Regular (Novolin 70/30), 17 UNITS SC QAM Insulin Isophan/Regular (Novolin 70/30), 10 SC QPM Lisinopril/Hctz (Zestoretic 20MG/25MG), 0.5 TAB PO QAM Lovastatin (Mevacor), 10 MG PO QPM Memantine Hcl (Namenda), 10 MG PO BID Methenamine Hippurate (Methenamine Hippurate), 1 GM PO BID Multiple Vitamin (Multi Vitamin Daily), 1 TAB PO DAILY Mupirocin 2% (Bactroban 2%), 1 APPLN EXT UD Propylene Glycol-Glycerin (Soothe), 1-2 DROPS OPB DAILY Trazodone Hcl (Trazodone), 100 MG PO DHS Scheduled PRN Acetaminophen (Tylenol Extra Strength), 1,000 MG PO DAILY PRN for PRN Review of Systems The patient denies chest pain, palpitations, shortness of breath, cough, lower extremity swelling, vision change, hearing change, sore throat, fevers, chills, sweats, blood in urine or stool, dysuria, urinary frequency or urgency, lightheadedness, dizziness, headache, memory loss, loss of consciousness, rash, abnormal bruising or bleeding, imbalance, focal or generalized weakness, numbness or tingling in arms or legs, generalized arthralgias or myalgias, back or neck pain, or night sweats. The review of systems is otherwise negative other than for that already noted above, and at least 10 systems have been reviewed. Physical Exam Vital Signs Date Time Temp Pulse Resp B/P (MAP) Pulse Ox O2 Delivery O2 Flow Rate FiO2 04/20/17 21:30 104 106/80 94 Room Air 04/20/17 20:39 Room Air 04/20/17 19:22 99 149/92 98 Room Air 04/20/17 18:47 71 138/61 100 Room Air 04/20/17 16:54 79 144/61 93 Room Air 04/20/17 15:39 37.1 85 133/71 100 Room Air The patient is awake, well-developed and adequately nourished, alert and oriented 3, normocephalic and atraumatic, lying in bed and in mild distress. HEENT--PERRL, EOMI, mucous membranes and oropharynx dry. Neck--supple, no JVD or bruits, thyroid normal, trachea midline, no adenopathy. Heart--normal S1 and S2, no extra beats, no murmurs, rubs or gallops. Lungs--clear bilaterally with good air movement, no respiratory distress, no accessory muscle use. Abdomen--decreased bowel sounds, mildly firm, distended, generalized pain with light touch. Extremities--no cyanosis, clubbing or edema. There are good distal pulses b/l. Dermatologic--normal skin turgor, normal color, warm and dry, no abnormal lymph nodes, no rash. Neurologic--cranial nerves II through XII grossly intact. Rheumatologic--normal range of motion. Psychiatric--normal affect. Diagnostics Laboratory Results Results Past 24 Hours Test 04/20/17 16:00 04/20/17 16:09 Range/Units White Blood Count 8.85 4.8-10.8 K/uL Red Blood Count 3.92 4.2-5.4 M/uL Hemoglobin 9.8 12.0-16.0 g/dL Hematocrit 30.4 37-47 % Mean Corpuscular Volume 77.6 80-100 fL Mean Corpuscular Hemoglobin 25.0 25-34 pg Mean Corpuscular Hemoglobin Concent 32.2 32-36 g/dl Platelet Count 336 130-400 K/uL Mean Platelet Volume 9.1 7.4-10.4 fL Neutrophils (%) (Auto) 70.4 % Lymphocytes (%) (Auto) 17.7 % Monocytes (%) (Auto) 9.4 % Eosinophils (%) (Auto) 2.0 % Basophils (%) (Auto) 0.3 % Neutrophils # (Auto) 6.22 1.4-6.5 K/uL Lymphocytes # (Auto) 1.57 1.2-3.4 K/uL Monocytes # (Auto) 0.83 0.11-0.59 K/uL Eosinophils # (Auto) 0.18 0-0.5 K/uL Basophils # (Auto) 0.03 0-0.2 K/uL RDW Standard Deviation 42.8 36.4-46.3 fL RDW Coefficient of Variation 15.2 11.5-14.5 % Immature Granulocyte % (Auto) 0.2 % Immature Granulocyte # (Auto) 0.02 0.00-0.02 K/uL Sodium Level 131 136-145 mmol/L Potassium Level 3.3 3.5-5.1 mmol/L Chloride Level 94 98-107 mmol/L Carbon Dioxide Level 29 21-32 mmol/L Anion Gap 8.0 3-11 mmol/L Blood Urea Nitrogen 12 7-18 mg/dl Creatinine 0.88 0.60-1.20 mg/dl Est Creatinine Clear Calc Drug Dose 39.8 ml/min Estimated GFR () 68.0 Estimated GFR (Non- 58.7 BUN/Creatinine Ratio 14.2 10-20 Random Glucose 77 70-99 mg/dl Calcium Level 8.4 8.5-10.1 mg/dl Total Bilirubin 0.4 0.2-1 mg/dl Direct Bilirubin 0.1 0-0.2 mg/dl Aspartate Amino Transf (AST/SGOT) 21 15-37 U/L Alanine Aminotransferase (ALT/SGPT) 15 12-78 U/L Alkaline Phosphatase 92 45-117 U/L Total Protein 6.4 6.4-8.2 gm/dl Albumin 2.7 3.4-5.0 gm/dl Lipase 103 73-393 U/L Bedside Glucose 85 70-90 mg/dl Diagnostic Radiology Patient Name: TALA POTTER Unit Number: [id number] Dictated: 04/20/171911 Transcribed: 04/20/171911 EV Printed Date/Time: [~ rep prt dt]/[~ rep prt tm] [~ rep ct labl] - [~ rep ct ivnm] [facility] [place] [address] Dictated: 04/20/171911 Transcribed: 04/20/171911 EV Printed Date/Time: [~ rep prt dt]/[~ rep prt tm] [~ rep ct labl] - [~ rep ct ivnm] [~ rep ct add3]] CT SCAN OF THE ABDOMEN AND PELVIS WITH IV CONTRAST CLINICAL HISTORY: Right-sided abdominal pain. Palpable mass. COMPARISON STUDY: No priors. TECHNIQUE: Following the IV administration of 116 cc of Optiray 320, CT scan of the abdomen and pelvis is performed from the lung bases to the proximal femora. Images are reviewed in the axial, sagittal, and coronal planes. There is an IV malfunction during the initial contrast injection. IV contrast was then administered without complication. A dose lowering technique was utilized adhering to the principles of ALARA. The examination is degraded by suboptimal positioning within the CT gantry as well as by motion artifact. CT DOSE: 367.52 mGy.cm FINDINGS: Lung bases: The heart is normal in size and without pericardial effusion. There are coronary artery calcifications. A small hiatal hernia is noted. Mild wall thickening is suggested in the distal esophagus. There are trace pleural effusions with dependent atelectasis. No airspace consolidation is seen typical for pneumonia. Liver: The contrast-enhanced liver is normal in size, contour, and attenuation. There is mild central intrahepatic biliary ductal dilatation. The hepatic veins and portal veins are patent. Gallbladder: Contracted versus surgically absent. Spleen: Normal in size and attenuation. Pancreas: Atrophic and grossly unremarkable. Adrenal glands: Unremarkable. Kidneys: The contrast enhanced kidneys are atrophic and without hydronephrosis. The kidneys enhance symmetrically. Excreted contrast is present within the renal collecting system bilaterally secondary to IV malfunction. There is a 2.6 cm left renal cyst. Additional scattered subcentimeter cortical hypodensities also likely represent cysts but are too small for definitive characterization. Abdominal vasculature: The abdominal aorta is normal in course and caliber noting advanced atherosclerotic calcification. Bowel: The stomach and proximal small bowel loops are distended and fluid-filled. Small bowel loops measure up to 4.2 cm in diameter. The distal small bowel and colon are relatively decompressed, and a transition point is identified in the right lower quadrant on image #313. The appearance is consistent with a small bowel obstruction. There is approximately 4 cm circumferential mass lesion suggested in the transverse colon on axial image #212 with tiny surrounding pericolonic lymph nodes. A duodenal diverticulum is noted. There is advanced diverticulosis of left colon without CT evidence of acute diverticulitis. The appendix is well-visualized and normal. Peritoneum: There is trace free fluid in the pelvis. No intraperitoneal free air is seen. There is a fat-containing ventral hernia seen on axial image #260. There is fluid within the hernia sac. Mild induration is seen within the ventral abdominal pannus. Lymphadenopathy: None. Pelvic viscera: There are small foci of gas within the bladder lumen. The bladder is otherwise normal as imaged. The uterus is surgically absent. No adnexal lesion is seen. Skeletal structures: The skeletal structures are heterogeneously osteopenic. There is mild to moderate lumbosacral spondylosis and scoliosis. There is tobacco thickening and sclerosis of the T9 vertebral body with mild loss of height. The appearance suggests Pagetoid change. No definite lytic or blastic lesions are seen. IMPRESSION: 1. Findings are consistent with a small bowel obstruction with a transition point identified involving a loop of ileum in the right lower quadrant. The distal small bowel and colon are decompressed. 2. No intraperitoneal free air is seen. Trace free fluid in the pelvis is likely on a reactive basis. 3. There is an approximately 4 cm annular mass lesion suggested in the transverse colon. This should be considered colon cancer until proven otherwise and follow-up with colonoscopy is recommended for further assessment. This does not represent the site of obstruction. 4. There are small foci of gas within the bladder lumen, likely related to instrumentation. Correlation with urinalysis will be required. 5. Trace pleural effusions. 6. Circumferential wall thickening is suggested in the distal esophagus. Correlate clinically for evidence of esophagitis. If further assessment is desired then endoscopy would be appropriate. 7. There is a large fat and fluid containing ventral hernia. 8. There is trabecular thickening and dense sclerosis seen involving the body of T9. 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 A solitary osteoblastic metastasis is considered much less likely. 9. Additional findings as above. Electronically signed by: Stephan Geller M.D. 04/20/2017 7:27 PM Dictated Date/Time: 04/20/2017 7:12 PM The status of this report is Signed. Draft = Not yet reviewed or approved by Radiologist. Signed = Reviewed and approved by Radiologist. <AttendingPhy></AttendingPhy> <FamilyPhy>[facility]</FamilyPhy> <PrimaryPhy> [facility]</PrimaryPhy> <UnitNumber>[id number]</UnitNumber> <VisitNumber> [id number]</VisitNumber> <PatientName>TALA POTTER</PatientName> < DateOfBirth>1930</DateOfBirth> <Location>[facility]</Location> <ServiceDate></ServiceDate> <MNE>ESINDI</MNE> <OrderingPhy>Thiago Shelton MD</ OrderingPhy> <OrderingPhyMNE>f rep ord dr oconnell</OrderingPhyMNE> <DictatingPhyMNE> f rep dict dr oconnell</DictatingPhyMNE> <CCListMNE>f rep ct kourtney</CCListMNE> < AdmittingPhyMNE>f pt admit dr oconnell</AdmittingPhyMNE> <AttendingPhyMNE>f pt attend dr oconnell</AttendingPhyMNE> <ConsultingPhyMNE>f pt consult dr oconnell</ConsultingPhyMNE> <FamilyPhyMNE>f pt fam dr oconnell</FamilyPhyMNE> <OtherPhyMNE>f pt other dr oconnell</OtherPhyMNE> < PrimaryPhyMNE>f pt prim care dr oconnell</PrimaryPhyMNE> <ReferringPhyMNE>f pt referring dr oconnell</ReferringPhyMNE> EKG EKG shows sinus tachycardia at 102 bpm, no acute ST-T changes, and no change compared to 03/23/2015 Impression Assessment and Plan Small bowel obstruction with transition point in right lower quadrant-- Admit to the medical surgical floor. Nothing by mouth NG tube to low intermittent suction Normal saline with KCl 20 mEq at 100 ML's per hour Zosyn 3.375 mg IV every 8 hours Famotidine 20 mg IV every 12 hours Zofran 4 mg IV every 6 hours when necessary, with repeat in 30 minutes Morphine sulfate 2-4 mg IV every 2 hours when necessary moderate to severe pain Consult surgery Dr. Dong Diabetes mellitus-- Hold insulin 70/[address] on Accu-Cheks before meals and at bedtime with NovoLog coverage per scale. Hypertension-- Hold HCTZ/lisinopril and aspirin Hydralazine 10 mg IV every 4 hours when necessary systolic blood pressure greater than 160 Dementia/depression-- Hold donepezil, Namenda and trazodone. Hyperlipidemia-- hold Mevacor Recurrent UTI-- hold methenamine hippurate Level of Care Med/Surg Advanced Directives Existing Living Will: Yes Existing Power of Nub Card Tender: Yes Resuscitation Status FULL RESUSCITATION VTE Prophylaxis VTE Risk Assessment Done? Y/N: Yes Risk Level: Moderate Given or contraindicated: SCD's
[2017-04-20] MEDS ORDERED: HydrALAZINE HCL 20 MG/ML VIAL IV. PRN (22:15)
[2017-04-20] MEDS ORDERED: INFLUENZA VACCINE HIGH DOSE 65+ 0.5 ML SYR IM. ONE (22:30)
[2017-04-20] MEDS ORDERED: PNEUMOCOCCAL POLYSACCHARIDES 25 MCG/0.5 ML VIAL/SYR IM. ONE (22:30)
[2017-04-20] MEDS ORDERED: PNEUMOCOCCAL ADMINISTRATION CHARGE ONE (22:30)
[2017-04-20] MEDS ORDERED: INFLUENZA ADMINISTRATION CHARGE ONE (22:30)
--- NOTE | 2017-04-20 23:01 | DIAGNOSTIC IMAGING REPORT ---
ULTRASOUND LEFT FOREARM NONVASCULAR CLINICAL HISTORY: Foreign body assessment. Assess for IV catheter remnant. COMPARISON STUDY: No priors. FINDINGS: Real-time, grayscale, and color flow sonography of the soft tissues in the left forearm is performed at the indicated site of interest. No definite shadowing foreign body was identified. Tiny foci of echogenicity with dirty shadowing likely represent tiny foci of subcutaneous gas. IMPRESSION: No definite foreign body is identified in the left forearm by ultrasound. Radiographic correlation is recommended. Electronically signed by: Stephan Geller M.D. 04/20/2017 11:00 PM Dictated Date/Time: 04/20/2017 10:58 PM
[2017-04-20] MEDS: FAMOTIDINE IV INJ 20 MG in DEXTROSE 5% 100ML 100 ML IV SCH (23:22)
[2017-04-20] MEDS: NSS + 20MEQ KCL 1000ML 1,000 ML IV SCH (23:23)
[2017-04-20] MEDS ORDERED: NURSING VERBAL MED ORDER ONE (23:30)
[2017-04-21] MEDS ORDERED: PIPERACILL/TAZOBAC IV 3.375 GM in DEXTROSE 5% 100ML 100 ML IV SCH (04:00)
[2017-04-21] MEDS: INSULIN ASPART 100 UNITS/ML 3 ML PEN SC SCH ×5 (05:55→23:51)
[2017-04-21 06:34] LABS: BASO % 0.2 %; BASO ABS # 0.02 K/uL (0-0.2); COMPLETE YES; EOS % 1.5 %; HEMATOCRIT 30.1 % (37-47); IG% 0.2 %; LYMPH % 15.8 %; LYMPH ABS # 1.44 K/uL (1.2-3.4); MEAN CELL VOLUME 77.4 fL (80-100); MEAN CORPUSCULAR HEMOGLOBIN 25.2 pg (25-34); MEAN CORPUSCULAR HGB CONC 32.6 g/dl (32-36); MEAN PLATELET VOLUME 9.2 fL (7.4-10.4); MONO % 9.6 %; NEUT % 72.7 %; PLATELET COUNT 332 K/uL (130-400); RED BLOOD COUNT 3.89 M/uL (4.2-5.4); WHITE BLOOD COUNT 9.09 K/uL (4.8-10.8)
[2017-04-21 07:00] VITALS: BP 134/71; PULSE 77; TEMP 36.7; O2SAT 97
[2017-04-21 07:08] LABS: BUN/CREATININE RATIO 12.2 (10-20); CALCIUM 7.6 mg/dl (8.5-10.1); CREATININE 0.74 mg/dl (0.60-1.20); MAGNESIUM 1.8 mg/dl (1.8-2.4); POTASSIUM 3.2 mmol/L (3.5-5.1)
[2017-04-21] MEDS: NSS + 20MEQ KCL 1000ML 1,000 ML IV SCH ×2 (09:08→19:11)
[2017-04-21] MEDS: POTASSIUM CHLR 10 MEQ / WTR 10 MEQ in PREMIXED WATER 100 ML IV SCH ×2 (09:48→10:30)
--- NOTE | 2017-04-21 10:20 | Surgery Consultation ---
Consultation Date of Consultation: Apr 21, 2017. Attending Physician: Ralph Fournier MD History of Present Illness pt with some lower abdominal pain, nausea and subsequent emesis. began Saturday and progressed. CT with multiple findings including SBO, ventral hernia with fat incarceration, and a transverse colon mass. Past Medical/Surgical History Medical Problems: (1) Altered mental status Status: Acute (2) Anemia Status: Acute (3) Colonic mass Status: Acute (4) Hypokalemia Status: Acute (5) Hyponatremia Status: Acute (6) Ventral hernia Status: Acute Family History No pertinent family history Social History Smoking Status: Never Smoker Smokeless Tobacco Use: No Alcohol Use: none Drug Use: none Housing Status: lives alone Occupation Status: retired Allergies Coded Allergies: Clotrimazole (Unverified Allergy, Intermediate, ., 04/20/17) Sulfa Antibiotics (Verified Allergy, Unknown, HIVES, 04/20/17) Home Medications Scheduled Ascorbic Acid (Vitamin C), 250 MG PO DAILY Aspirin (Aspirin 81), 81 MG PO DAILY Cranberry (Vaccinium Macrocarp (Cranberry), 450 MG PO DAILY Donepezil Hydrochloride (Donepezil Hcl), 5 MG PO DAILY Insulin Isophan/Regular (Novolin 70/30), 17 UNITS SC QAM Insulin Isophan/Regular (Novolin 70/30), 10 SC QPM Lisinopril/Hctz (Zestoretic 20MG/25MG), 0.5 TAB PO QAM Lovastatin (Mevacor), 10 MG PO QPM Memantine Hcl (Namenda), 10 MG PO BID Methenamine Hippurate (Methenamine Hippurate), 1 GM PO BID Multiple Vitamin (Multi Vitamin Daily), 1 TAB PO DAILY Mupirocin 2% (Bactroban 2%), 1 APPLN EXT UD Propylene Glycol-Glycerin (Soothe), 1-2 DROPS OPB DAILY Trazodone Hcl (Trazodone), 100 MG PO DHS Scheduled PRN Acetaminophen (Tylenol Extra Strength), 1,000 MG PO DAILY PRN for PRN Current Inpatient Medications Current Inpatient Medications Medications (Trade) Dose Ordered Sig/Rocio Route Start Time Stop Time Status Last Admin Dose Admin Ioversol (Optiray 320) 116 ml UD PRN IV 04/20/17 19:15 04/24/17 19:14 Miscellaneous Information (Order Awaiting Action) 1 ea QS N/A 04/21/17 00:00 05/21/17 00:00 Miscellaneous Information (Order Awaiting Action) 1 ea QS N/A 04/21/17 00:00 05/21/17 00:00 Ondansetron HCl (Zofran Inj) 4 mg Q6H PRN IV 04/20/17 20:30 05/20/17 20:29 Acetaminophen 100 ml @ 400 mls/hr Q8H PRN IV 04/20/17 20:30 05/20/17 20:29 Glucose (Glucose 40% Gel) UD PRN PO 04/20/17 20:30 05/20/17 20:29 Glucose (Glucose Chew Tab) 1 tabs UD PRN PO 04/20/17 20:30 05/20/17 20:29 Dextrose (Dextrose 50% 50ML Syringe) 50 ml UD PRN IV 04/20/17 20:30 05/20/17 20:29 Glucagon (Glucagon Inj) 1 mg UD PRN SQ 04/20/17 20:30 05/20/17 20:29 Potassium Chloride/Sodium Chloride 1,000 ml @ 100 mls/hr Q10H IV 04/20/17 22:30 05/20/17 22:29 04/21/17 09:08 100 MLS/HR Morphine Sulfate (MoRPHine SULFATE INJ) 2 mg Q2H PRN IV 04/20/17 20:30 05/04/17 20:29 Morphine Sulfate (MoRPHine SULFATE INJ) 4 mg Q2H PRN IV 04/20/17 20:30 05/04/17 20:29 Famotidine 20 mg/ Dextrose 102 ml @ 200 mls/hr Q12H IV 04/20/17 22:30 05/20/17 22:29 04/20/17 23:22 200 MLS/HR Hydralazine HCl (HydrALAZINE INJ) 10 mg Q4H PRN IV. 04/20/17 22:15 05/20/17 22:14 Insulin Aspart (novoLOG ASPART) SLIDING SCALE If C... Q6 SC 04/21/17 00:00 05/21/17 00:00 Potassium Chloride 10 meq/ Prmx 100 ml @ 100 mls/hr Q1H IV 04/21/17 09:30 04/21/17 11:29 04/21/17 09:48 100 MLS/HR Review of Systems Constitutional: + weight loss Abdomen: + pain, + nausea, + vomiting Physical Exam Date Time Temp Pulse Resp B/P (MAP) Pulse Ox O2 Delivery O2 Flow Rate FiO2 04/21/17 08:05 Room Air 04/21/17 07:00 36.7 77 17 134/71 (92) 97 Room Air 04/20/17 23:58 Room Air 04/20/17 22:00 36.8 100 18 151/78 Room Air 04/20/17 21:30 104 106/80 94 Room Air 04/20/17 20:39 Room Air 04/20/17 19:22 99 149/92 98 Room Air 04/20/17 18:47 71 138/61 100 Room Air 04/20/17 16:54 79 144/61 93 Room Air 04/20/17 15:39 37.1 85 133/71 100 Room Air General Appearance: no apparent distress Head: normocephalic, atraumatic Eyes: EOMI, sclerae normal Neck: supple, trachea midline Respiratory/Chest: no respiratory distress, no accessory muscle use Abdomen/GI: soft, + distended, + hernia, + pertinent finding (mild distension. minimal tenderness. no peritoneal signs. ) Neurologic/Psych: alert, oriented x 3 Skin: normal color, warm/dry Laboratory Results Last 24 Hours Test 04/20/17 16:00 04/20/17 16:09 04/20/17 23:30 04/21/17 05:50 White Blood Count 8.85 K/uL Red Blood Count 3.92 M/uL Hemoglobin 9.8 g/dL Hematocrit 30.4 % Mean Corpuscular Volume 77.6 fL Mean Corpuscular Hemoglobin 25.0 pg Mean Corpuscular Hemoglobin Concent 32.2 g/dl Platelet Count 336 K/uL Mean Platelet Volume 9.1 fL Neutrophils (%) (Auto) 70.4 % Lymphocytes (%) (Auto) 17.7 % Monocytes (%) (Auto) 9.4 % Eosinophils (%) (Auto) 2.0 % Basophils (%) (Auto) 0.3 % Neutrophils # (Auto) 6.22 K/uL Lymphocytes # (Auto) 1.57 K/uL Monocytes # (Auto) 0.83 K/uL Eosinophils # (Auto) 0.18 K/uL Basophils # (Auto) 0.03 K/uL RDW Standard Deviation 42.8 fL RDW Coefficient of Variation 15.2 % Immature Granulocyte % (Auto) 0.2 % Immature Granulocyte # (Auto) 0.02 K/uL Sodium Level 131 mmol/L Potassium Level 3.3 mmol/L Chloride Level 94 mmol/L Carbon Dioxide Level 29 mmol/L Anion Gap 8.0 mmol/L Blood Urea Nitrogen 12 mg/dl Creatinine 0.88 mg/dl Est Creatinine Clear Calc Drug Dose 39.8 ml/min Estimated GFR () 68.0 Estimated GFR (Non- 58.7 BUN/Creatinine Ratio 14.2 Random Glucose 77 mg/dl Calcium Level 8.4 mg/dl Total Bilirubin 0.4 mg/dl Direct Bilirubin 0.1 mg/dl Aspartate Amino Transf (AST/SGOT) 21 U/L Alanine Aminotransferase (ALT/SGPT) 15 U/L Alkaline Phosphatase 92 U/L Total Protein 6.4 gm/dl Albumin 2.7 gm/dl Lipase 103 U/L Bedside Glucose 85 mg/dl 132 mg/dl 115 mg/dl Test 04/21/17 05:54 White Blood Count 9.09 K/uL Red Blood Count 3.89 M/uL Hemoglobin 9.8 g/dL Hematocrit 30.1 % Mean Corpuscular Volume 77.4 fL Mean Corpuscular Hemoglobin 25.2 pg Mean Corpuscular Hemoglobin Concent 32.6 g/dl Platelet Count 332 K/uL Mean Platelet Volume 9.2 fL Neutrophils (%) (Auto) 72.7 % Lymphocytes (%) (Auto) 15.8 % Monocytes (%) (Auto) 9.6 % Eosinophils (%) (Auto) 1.5 % Basophils (%) (Auto) 0.2 % Neutrophils # (Auto) 6.60 K/uL Lymphocytes # (Auto) 1.44 K/uL Monocytes # (Auto) 0.87 K/uL Eosinophils # (Auto) 0.14 K/uL Basophils # (Auto) 0.02 K/uL RDW Standard Deviation 43.0 fL RDW Coefficient of Variation 15.3 % Immature Granulocyte % (Auto) 0.2 % Immature Granulocyte # (Auto) 0.02 K/uL Sodium Level 131 mmol/L Potassium Level 3.2 mmol/L Chloride Level 94 mmol/L Carbon Dioxide Level 28 mmol/L Anion Gap 9.0 mmol/L Blood Urea Nitrogen 9 mg/dl Creatinine 0.74 mg/dl Est Creatinine Clear Calc Drug Dose 47.3 ml/min Estimated GFR () 83.8 Estimated GFR (Non- 72.3 BUN/Creatinine Ratio 12.2 Random Glucose 107 mg/dl Calcium Level 7.6 mg/dl Magnesium Level 1.8 mg/dl Assessment & Plan 04/21/17 multiple surgical issues in elderly pt 1. SBO...will hopefully resolve with conservative tx feeling better clinically approx 500 cc's bilious output in NGT 2. ventral hernia with fat incarceration. can be repaired with any future definitive surgery. nothing acute needs done with it 3. colon mass in transverse colon pt never had colonosocopy. ideally pt would resolve her SBO conservatively to a prep/colonoscopy could be done at some point in the near future. If SBO ends up requiring surgery, we will need to decide how to deal with the colon mass of unknown etiology clinically stable. cont conservative management for now.
[2017-04-21] MEDS: FAMOTIDINE IV INJ 20 MG in DEXTROSE 5% 100ML 100 ML IV SCH ×2 (12:50→21:20)
[2017-04-21 15:05] LABS: URINE APPEARANCE CLEAR (CLEAR); URINE BILIRUBIN NEG (NEG); URINE COLOR YELLOW; URINE EPITHELIAL CELL AUTO >30 /lpf (0-5); URINE NITRITE NEG (NEG); URINE SPECIFIC GRAVITY 1.013 (1.000-1.030); UROBILINOGEN POS (NEG)
[2017-04-21 15:08] LABS: MANUAL MICROSCOPIC REQUIRED? NO; REVIEW REQ? YES
[2017-04-21 15:35] VITALS: BP 143/61; PULSE 95; TEMP 36.8; O2SAT 97
--- NOTE | 2017-04-21 16:57 | DIAGNOSTIC IMAGING REPORT ---
KUB CLINICAL HISTORY: SBO COMPARISON STUDY: CT scan dated 04/20/2017 FINDINGS: There is contrast within nondilated colon. There are dilated small bowel loops measuring up to 42 mm in diameter. IMPRESSION: Dilated small bowel. Contrast within normal caliber colon. The findings are indicative of a partial small bowel obstruction. Electronically signed by: Amado Guzman M.D. 04/21/2017 4:55 PM Dictated Date/Time: 04/21/2017 4:54 PM
--- NOTE | 2017-04-21 20:18 | Progress Note ---
Subjective Date of Service: Apr 21, 2017. Subjective Pt evaluation today including: conversation w/ patient, conversation w/ family (daughters), physical exam, chart review, lab review, review of studies (CT abd/ pelvis), conversation w/ consultants intern (gen surg), review of inpatient medication list Pain: abdomen - but improved PO Intake: NPO; NG tube in place Voiding: incontinence pt feels better than last evening upon arrival still no flatus NG tube draining bilious drainage denies dyspnea family reports anorexia for "some time" along with some element of weight loss in the last few months also has had change in bowel habits Problem List Medical Problems: (1) Altered mental status Status: Acute (2) Anemia Status: Acute (3) Colonic mass Status: Acute (4) Hypokalemia Status: Acute (5) Hyponatremia Status: Acute (6) Ventral hernia Status: Acute Review of Systems Constitutional: No fever Respiratory: No shortness of breath Cardiac: No chest pain Abdomen: No pain Objective Vital Signs Date Time Temp Pulse Resp B/P (MAP) Pulse Ox O2 Delivery O2 Flow Rate FiO2 04/21/17 15:45 Room Air 04/21/17 15:35 36.8 95 18 143/61 (88) 97 Room Air 04/21/17 08:05 Room Air 04/21/17 07:00 36.7 77 17 134/71 (92) 97 Room Air 04/20/17 23:58 Room Air 04/20/17 22:00 36.8 100 18 151/78 Room Air 04/20/17 21:30 104 106/80 94 Room Air 04/20/17 20:39 Room Air Physical Exam General Appearance: no apparent distress ENT: pharynx normal Neck: no JVD Respiratory/Chest: lungs clear, no respiratory distress, no accessory muscle use Cardiovascular: regular rate, rhythm, no gallop Abdomen: normal bowel sounds, non tender, no organomegaly, + distended Extremities: no pedal edema Neurologic/Psychiatric: alert Laboratory Results Last 24 Hours Test 04/20/17 23:30 04/21/17 05:50 04/21/17 05:54 04/21/17 12:15 Bedside Glucose 132 mg/dl 115 mg/dl 117 mg/dl White Blood Count 9.09 K/uL Red Blood Count 3.89 M/uL Hemoglobin 9.8 g/dL Hematocrit 30.1 % Mean Corpuscular Volume 77.4 fL Mean Corpuscular Hemoglobin 25.2 pg Mean Corpuscular Hemoglobin Concent 32.6 g/dl Platelet Count 332 K/uL Mean Platelet Volume 9.2 fL Neutrophils (%) (Auto) 72.7 % Lymphocytes (%) (Auto) 15.8 % Monocytes (%) (Auto) 9.6 % Eosinophils (%) (Auto) 1.5 % Basophils (%) (Auto) 0.2 % Neutrophils # (Auto) 6.60 K/uL Lymphocytes # (Auto) 1.44 K/uL Monocytes # (Auto) 0.87 K/uL Eosinophils # (Auto) 0.14 K/uL Basophils # (Auto) 0.02 K/uL RDW Standard Deviation 43.0 fL RDW Coefficient of Variation 15.3 % Immature Granulocyte % (Auto) 0.2 % Immature Granulocyte # (Auto) 0.02 K/uL Sodium Level 131 mmol/L Potassium Level 3.2 mmol/L Chloride Level 94 mmol/L Carbon Dioxide Level 28 mmol/L Anion Gap 9.0 mmol/L Blood Urea Nitrogen 9 mg/dl Creatinine 0.74 mg/dl Est Creatinine Clear Calc Drug Dose 47.3 ml/min Estimated GFR () 83.8 Estimated GFR (Non- 72.3 BUN/Creatinine Ratio 12.2 Random Glucose 107 mg/dl Calcium Level 7.6 mg/dl Magnesium Level 1.8 mg/dl Test 04/21/17 15:00 Urine Color YELLOW Urine Appearance CLEAR Urine pH 8.0 Urine Specific [place] 1.013 Urine Protein NEG Urine Glucose (UA) NEG Urine Ketones 1+ Urine Occult Blood TRACE Urine Nitrite NEG Urine Bilirubin NEG Urine Urobilinogen POS Urine Leukocyte Esterase SMALL Urine WBC (Auto) 1-5 /hpf Urine RBC (Auto) 0-4 /hpf Urine Hyaline Casts (Auto) 1-5 /lpf Urine Epithelial Cells (Auto) >30 /lpf Urine Bacteria (Auto) 1+ Urine Yeast (Auto) Assessment and Plan 86yo female - 1. SBO - likely due to adhesions. Has a ventral hernia on CT but this does not appear to be the cause of the obstruction. Cont NG tube decompression, IVF, serial exams, and time. Appreciate surgical consultation. No indication for IV abx at this time. 2. transverse colon mass - she has a microcytic anemia, has had change in bowel habits, and recent anorexia. All worrisome signs of colon cancer. Address once #1 is resolved. 3. ventral hernia - no Rx at this time. 4. hypokalemia - 20meq IV KCL x 1 now; then continue with IV KCL in maintenance fluids. 5. hyponatremia - likely hypotonic hyponatremia from volume depletion. Cont IVF; repeat BMP am. 6. dementia - noted; holding home meds (aricept, etc) 7. microcytic anemia - likely due to Fe def. CBC am. 8. T2DM - controlled 9. HTN - controlled 10. frequent burping/hiccups at home - CT with thickening of esophagus - this is c/w GERD and esophagitis. Cont IV H2 [place] 11. DVT proph - add heparin in AM. family updated Continued [facility] stay due to: inadequate po fluid intake, ambulation difficulties , multiple IV medications needed Discharge planning: uncertain
[2017-04-21 23:40] VITALS: BP 133/76; PULSE 96; TEMP 36.7; O2SAT 97
[2017-04-22] MEDS: NSS + 20MEQ KCL 1000ML 1,000 ML IV SCH ×2 (05:02→15:03)
[2017-04-22] MEDS: INSULIN ASPART 100 UNITS/ML 3 ML PEN SC SCH ×4 (05:45→20:55)
[2017-04-22] MEDS ORDERED: INSULIN ASPART 100 UNITS/ML 3 ML PEN SC SCH (06:00)
[2017-04-22 07:38] LABS: BASO % 0.4 %; BASO ABS # 0.03 K/uL (0-0.2); COMPLETE YES; EOS % 4.4 %; HEMATOCRIT 32.5 % (37-47); IG% 0.2 %; LYMPH % 18.9 %; LYMPH ABS # 1.56 K/uL (1.2-3.4); MEAN CELL VOLUME 78.9 fL (80-100); MEAN CORPUSCULAR HEMOGLOBIN 24.3 pg (25-34); MEAN CORPUSCULAR HGB CONC 30.8 g/dl (32-36); MEAN PLATELET VOLUME 9.1 fL (7.4-10.4); MONO % 8.5 %; NEUT % 67.6 %; PLATELET COUNT 303 K/uL (130-400); RED BLOOD COUNT 4.12 M/uL (4.2-5.4); WHITE BLOOD COUNT 8.25 K/uL (4.8-10.8)
[2017-04-22 08:05] VITALS: BP 134/70; PULSE 92; TEMP 36.8; O2SAT 98
[2017-04-22 08:08] LABS: BUN/CREATININE RATIO 9.2 (10-20); CALCIUM 7.9 mg/dl (8.5-10.1); CREATININE 0.58 mg/dl (0.60-1.20); MAGNESIUM 1.7 mg/dl (1.8-2.4); POTASSIUM 4.2 mmol/L (3.5-5.1)
--- NOTE | 2017-04-22 09:22 | Surgery Progress Note ---
Surgery Progress Note Date of Service Apr 22, 2017. Subjective + feeling well, + ambulating, + bowel movement, + flatus, + pain controlled, No complaints, No nausea, No vomiting Objective Vital Signs: Date Time Temp Pulse Resp B/P (MAP) Pulse Ox O2 Delivery O2 Flow Rate FiO2 04/22/17 08:05 36.8 92 18 134/70 (91) 98 Room Air 04/22/17 08:05 Room Air 04/21/17 23:45 Room Air 04/21/17 23:40 36.7 96 16 133/76 (95) 97 Room Air 04/21/17 15:45 Room Air 04/21/17 15:35 36.8 95 18 143/61 (88) 97 Room Air General Appearance: WD/WN, no apparent distress Abdomen: normal bowel sounds, non distended, + pertinent finding (mildly tender at site of ventral hernia- patient states that she can feel hernia. Abdominal pain that caused patient to come to hospital has greatly improved. ) Laboratory Results: Results Past 24 Hours Test 04/21/17 12:15 04/21/17 15:00 04/21/17 23:48 04/22/17 05:41 Range/Units Bedside Glucose 117 103 101 70-90 mg/dl Urine Color YELLOW Urine Appearance CLEAR CLEAR Urine pH 8.0 4.5-7.5 Urine Specific [place] 1.013 1.000-1.030 Urine Protein NEG NEG Urine Glucose (UA) NEG NEG Urine Ketones 1+ NEG Urine Occult Blood TRACE NEG Urine Nitrite NEG NEG Urine Bilirubin NEG NEG Urine Urobilinogen POS NEG Urine Leukocyte Esterase SMALL NEG Urine WBC (Auto) 1-5 0-5 /hpf Urine RBC (Auto) 0-4 0-4 /hpf Urine Hyaline Casts (Auto) 1-5 0-5 /lpf Urine Epithelial Cells (Auto) >30 0-5 /lpf Urine Bacteria (Auto) 1+ NEG Urine Yeast (Auto) NONE PRSENT Test 04/22/17 07:05 Range/Units White Blood Count 8.25 4.8-10.8 K/uL Red Blood Count 4.12 4.2-5.4 M/uL Hemoglobin 10.0 12.0-16.0 g/dL Hematocrit 32.5 37-47 % Mean Corpuscular Volume 78.9 80-100 fL Mean Corpuscular Hemoglobin 24.3 25-34 pg Mean Corpuscular Hemoglobin Concent 30.8 32-36 g/dl Platelet Count 303 130-400 K/uL Mean Platelet Volume 9.1 7.4-10.4 fL Neutrophils (%) (Auto) 67.6 % Lymphocytes (%) (Auto) 18.9 % Monocytes (%) (Auto) 8.5 % Eosinophils (%) (Auto) 4.4 % Basophils (%) (Auto) 0.4 % Neutrophils # (Auto) 5.58 1.4-6.5 K/uL Lymphocytes # (Auto) 1.56 1.2-3.4 K/uL Monocytes # (Auto) 0.70 0.11-0.59 K/uL Eosinophils # (Auto) 0.36 0-0.5 K/uL Basophils # (Auto) 0.03 0-0.2 K/uL RDW Standard Deviation 45.5 36.4-46.3 fL RDW Coefficient of Variation 15.7 11.5-14.5 % Immature Granulocyte % (Auto) 0.2 % Immature Granulocyte # (Auto) 0.02 0.00-0.02 K/uL Sodium Level 135 136-145 mmol/L Potassium Level 4.2 3.5-5.1 mmol/L Chloride Level 104 98-107 mmol/L Carbon Dioxide Level 22 21-32 mmol/L Anion Gap 9.0 3-11 mmol/L Blood Urea Nitrogen 5 7-18 mg/dl Creatinine 0.58 0.60-1.20 mg/dl Est Creatinine Clear Calc Drug Dose 60.4 ml/min Estimated GFR () 95.4 Estimated GFR (Non- 82.3 BUN/Creatinine Ratio 9.2 10-20 Random Glucose 98 70-99 mg/dl Calcium Level 7.9 8.5-10.1 mg/dl Magnesium Level 1.7 1.8-2.4 mg/dl Microbiology Results 04/22/17 Urine Culture, Received Pending KUB CLINICAL HISTORY: SBO COMPARISON STUDY: CT scan dated 04/20/2017 FINDINGS: There is contrast within nondilated colon. There are dilated small bowel loops measuring up to 42 mm in diameter. IMPRESSION: Dilated small bowel. Contrast within normal caliber colon. The findings are indicative of a partial small bowel obstruction. Electronically signed by: Amado Guzman M.D. 04/21/2017 4:55 PM Dictated Date/Time: 04/21/2017 4:54 PM Assessment & Plan 86-year-old female with Partial SBO, Ventral Hernia, Transverse Colon Mass Seen with Dr. Dong Reviewed pt's KUB from 04/21/2017. Patient improving. NG tube fell out yesterday- patient denies nausea or vomiting. +BM (loose) Will advance diet today. Patient reports that she is hungry. Dr. Dong spoke with DrRonaldo Case- patient in need of colonoscopy- consult GI to see if it can be done while patient is inpatient. as above. contrast in colon and pt now having BM's...will consult GI to eval transverse colon mass. clinically doing well.
[2017-04-22] MEDS: MAGNESIUM SULFATE 1GM / D5W 1 GM in PREMIXED IN D5W 100 ML IV SCH ×2 (09:33→10:40)
--- NOTE | 2017-04-22 09:45 | Gastrointestinal Consultation ---
Gastrointestinal Consultation Date of Consultation: Apr 22, 2017 Attending Physician: Dr. Fournier Consulting Physician: Joelle Aragon PA-C Reason for Consultation: Colon mass History of Present Illness Patient is a 86 year old female with a PMH of DM2, HTN, HLD, dementia, & depression who presented to the hospital with worsening RLQ pain and loose stools. She underwent a CT scan that indicated a small bowel obstruction and concern for a 4 cm mass lesion of the transverse colon. Since being hospitalized , the patient reports significant improvement of her RLQ pain. She denies a family history of IBD or colon cancer. She reports that her bowels moved every 1 -2 days prior to this event. Daughter reports she had a colonoscopy more than 10 years ago and reports it was normal. She denies fevers, chills, rectal bleeding, or abdominal pain at the time of my visit. Her nausea has improved. She is on a clear liquid diet. She has been evaluated by surgery already. She has a microcytic anemia noted. She reports gradual decrease in appetite and weight recently. She offers no further complaints. Past Medical/Surgical History Medical Problems: (1) Altered mental status Status: Acute (2) Anemia Status: Acute (3) Colonic mass Status: Acute (4) Hypokalemia Status: Acute (5) Hyponatremia Status: Acute (6) Ventral hernia Status: Acute Past Medical History: Diabetes Mellitus 2, HTN, HLD, Dementia, Depression Past Surgical History: cholecystectomy, hysterectomy Family History No pertinent family history Social History Smoking Status: Never Smoker Alcohol Use: none Drug Use: none Housing Status: lives alone Occupation Status: retired Allergies Coded Allergies: Clotrimazole (Unverified Allergy, Intermediate, ., 04/20/17) Sulfa Antibiotics (Verified Allergy, Unknown, HIVES, 04/20/17) Current Medications Home Meds and Scripts Medications Dose Route/Sig Max Daily Dose Days Date Category Vitamin C (Ascorbic Acid) 500 Mg Cap 250 Mg PO DAILY 04/20/17 Reported Bactroban 2% (Mupirocin) 30 Gm Cr 1 Appln EXT UD 04/20/17 Reported Cranberry (Cranberry (Vaccinium Macrocarp) 450 Mg Tab 450 Mg PO DAILY 04/20/17 Reported Aspirin 81 (Aspirin) 81 Mg Tab 81 Mg PO DAILY 04/20/17 Reported Donepezil Hcl (Donepezil Hydrochloride) 5 Mg Tab 5 Mg PO DAILY 04/20/17 Reported Soothe (Propylene Glycol-Glycerin) 1 [place] Col[place] 1-2 Drops OPB DAILY 07/03/16 Reported Tylenol Extra Strength (Acetaminophen) 500 Mg Tab 1,000 Mg PO DAILY PRN 07/28/14 Reported Methenamine Hippurate 1 Gm Tab 1 Gm PO BID 07/28/14 Reported Multi Vitamin Daily (Multiple Vitamin) 1 Tab Tab 1 Tab PO DAILY 07/28/14 Reported Mevacor (Lovastatin) 10 Mg Tab 10 Mg PO QPM 07/28/14 Reported Zestoretic 20MG/25MG (HCTZ/Lisinopril) Tab 0.5 Tab PO QAM 07/28/14 Reported Namenda (Memantine Hcl) 10 Mg Tab 10 Mg PO BID 05/13/12 Reported Trazodone (Trazodone HCl) 100 Mg Tab 100 Mg PO DHS 01/03/11 Reported Novolin 70/30 (Insulin Human Isoph/Insulin Regular) Susp 10 SC QPM 01/03/11 Reported Novolin 70/30 (Insulin Human Isoph/Insulin Regular) Susp 17 Units SC QAM 01/03/11 Reported Review of Systems Constitutional: + weight loss, No fever, No chills Eyes: No problem reported Respiratory: No cough, No shortness of breath, No dyspnea on exertion Cardiac: No chest pain Abdomen: No pain, No nausea, No vomiting, No diarrhea, No constipation, No GI bleeding Musculoskeletal: No joint pain Psych: No problem reported Skin: No problem reported Physical Exam Date Time Temp Pulse Resp B/P (MAP) Pulse Ox O2 Delivery O2 Flow Rate FiO2 04/22/17 08:05 36.8 92 18 134/70 (91) 98 Room Air 04/22/17 08:05 Room Air 04/21/17 23:45 Room Air 04/21/17 23:40 36.7 96 16 133/76 (95) 97 Room Air 04/21/17 15:45 Room Air 04/21/17 15:35 36.8 95 18 143/61 (88) 97 Room Air General Appearance: WD/WN, no apparent distress Eyes: normal inspection, PERRL ENT: hearing grossly normal Respiratory/Chest: lungs clear, normal breath sounds Cardiovascular: regular rate, rhythm Abdomen: normal bowel sounds, non tender, soft Extremities: non-tender Neurologic/Psych: alert, oriented x 3 Skin: normal color Laboratory Results Last 24 Hours Test 04/21/17 12:15 04/21/17 15:00 04/21/17 23:48 04/22/17 05:41 Bedside Glucose 117 mg/dl 103 mg/dl 101 mg/dl Urine Color YELLOW Urine Appearance CLEAR Urine pH 8.0 Urine Specific [place] 1.013 Urine Protein NEG Urine Glucose (UA) NEG Urine Ketones 1+ Urine Occult Blood TRACE Urine Nitrite NEG Urine Bilirubin NEG Urine Urobilinogen POS Urine Leukocyte Esterase SMALL Urine WBC (Auto) 1-5 /hpf Urine RBC (Auto) 0-4 /hpf Urine Hyaline Casts (Auto) 1-5 /lpf Urine Epithelial Cells (Auto) >30 /lpf Urine Bacteria (Auto) 1+ Urine Yeast (Auto) Test 04/22/17 07:05 White Blood Count 8.25 K/uL Red Blood Count 4.12 M/uL Hemoglobin 10.0 g/dL Hematocrit 32.5 % Mean Corpuscular Volume 78.9 fL Mean Corpuscular Hemoglobin 24.3 pg Mean Corpuscular Hemoglobin Concent 30.8 g/dl Platelet Count 303 K/uL Mean Platelet Volume 9.1 fL Neutrophils (%) (Auto) 67.6 % Lymphocytes (%) (Auto) 18.9 % Monocytes (%) (Auto) 8.5 % Eosinophils (%) (Auto) 4.4 % Basophils (%) (Auto) 0.4 % Neutrophils # (Auto) 5.58 K/uL Lymphocytes # (Auto) 1.56 K/uL Monocytes # (Auto) 0.70 K/uL Eosinophils # (Auto) 0.36 K/uL Basophils # (Auto) 0.03 K/uL RDW Standard Deviation 45.5 fL RDW Coefficient of Variation 15.7 % Immature Granulocyte % (Auto) 0.2 % Immature Granulocyte # (Auto) 0.02 K/uL Sodium Level 135 mmol/L Potassium Level 4.2 mmol/L Chloride Level 104 mmol/L Carbon Dioxide Level 22 mmol/L Anion Gap 9.0 mmol/L Blood Urea Nitrogen 5 mg/dl Creatinine 0.58 mg/dl Est Creatinine Clear Calc Drug Dose 60.4 ml/min Estimated GFR () 95.4 Estimated GFR (Non- 82.3 BUN/Creatinine Ratio 9.2 Random Glucose 98 mg/dl Calcium Level 7.9 mg/dl Magnesium Level 1.7 mg/dl Impression Patient is a 86 year old female with a resolving PSBO and CT evidence of a 4 cm mass of the transverse colon. Plan 1) Clear liquid diet today. 2) Prep tonight for colonoscopy on 04/23/17. 3) Further recommendations pending results of colonoscopy. 4) Supportive care per primary team. Thank you for allowing us to participate in the care of this patient. If you should have any further questions or concerns, do not hesitate to contact us. Agree with STEVE Merida as above Abd: Soft, NT, ND, +BS Continue current therapy Plan for colonoscopy in AM
[2017-04-22] MEDS ORDERED: NURSING DECISION MEDICATION ORDER SCH (11:15)
--- NOTE | 2017-04-22 11:26 | Hospitalist Progress Note ---
Hospitalist Progress Note Date of Service Apr 22, 2017. (Maranda Beltran CRNP) Subjective Pt evaluation today including: conversation w/ patient, conversation w/ family , physical exam, chart review, lab review, review of inpatient medication list Pain: none PO Intake: tolerating clear liquid diet Voiding: no voiding problems Ms. Rosa is seated in a chair, in good spirits. She denies nausea or vomiting. Had bowel movement today. Tolerating diet well. Respiratory: No shortness of breath Cardiovascular: No chest pain Abdomen: No pain, No nausea, No vomiting, No diarrhea Female : No dysuria All Other Systems: Reviewed and Negative (Maranda Beltran CRNP) Medications Medications Administered Medications (Trade) Dose Ordered Sig/Rocio Route Start Time Stop Time Status Last Admin Dose Admin Ondansetron HCl (Zofran Inj) 4 mg NOW STAT IV 04/20/17 15:40 04/20/17 15:42 DC 04/20/17 16:00 4 MG Ondansetron HCl (Zofran Inj) 4 mg NOW STAT IV 04/20/17 18:10 04/20/17 18:11 DC 04/20/17 18:23 4 MG Piperacillin Sod/ Tazobactam Sod 3.375 gm/Dextrose 115 ml @ 28.75 mls/ hr Q8H IV 04/21/17 04:00 04/21/17 08:50 DC 04/21/17 04:47 28.75 MLS/HR Potassium Chloride/Sodium Chloride 1,000 ml @ 100 mls/hr Q10H IV 04/20/17 22:30 05/20/17 22:29 04/22/17 05:02 100 MLS/HR Famotidine 20 mg/ Dextrose 102 ml @ 200 mls/hr Q12H IV 04/20/17 22:30 05/20/17 22:29 04/21/17 21:20 200 MLS/HR Piperacillin Sod/ Tazobactam Sod 3.375 gm/Dextrose 115 ml @ 230 mls/hr NOW STAT IV 04/20/17 21:21 04/20/17 21:50 DC 04/21/17 00:17 230 MLS/HR Potassium Chloride 10 meq/ Prmx 100 ml @ 100 mls/hr Q1H IV 04/21/17 09:30 04/21/17 11:29 DC 04/21/17 10:30 100 MLS/HR Magnesium Sulfate 1 gm/Prmx 100 ml @ 100 mls/hr Q1H IV 04/22/17 08:18 04/22/17 10:17 DC 04/22/17 10:40 100 MLS/HR (Maranda Beltran CRNP) Objective Vital Signs Date Time Temp Pulse Resp B/P (MAP) Pulse Ox O2 Delivery O2 Flow Rate FiO2 04/22/17 08:05 36.8 92 18 134/70 (91) 98 Room Air 04/22/17 08:05 Room Air 04/21/17 23:45 Room Air 04/21/17 23:40 36.7 96 16 133/76 (95) 97 Room Air 04/21/17 15:45 Room Air 04/21/17 15:35 36.8 95 18 143/61 (88) 97 Room Air (Maranda Beltran CRNP) Physical Exam Notes: General: no distress Eyes: normal inspection, PERLL Respiratory: chest non tender, clear to auscultation, normal breath sounds, no respiratory distress, no accessory muscle use Cardiac: regular rate and rhythm, no rub or gallop, no murmur, no edema, no jvd GI/: active bowel sounds, no abd pain or tenderness, soft, non distended, ventral hernia Extremities: normal range of motion, normal strength, non tender Neuro/Psych: alert and oriented x 3, normal mood and affect Skin: normal color, dry (Maranda Beltran CRNP) Laboratory Results Last 24 Hours Test 04/21/17 12:15 04/21/17 15:00 04/21/17 23:48 04/22/17 05:41 Bedside Glucose 117 mg/dl 103 mg/dl 101 mg/dl Urine Color YELLOW Urine Appearance CLEAR Urine pH 8.0 Urine Specific [place] 1.013 Urine Protein NEG Urine Glucose (UA) NEG Urine Ketones 1+ Urine Occult Blood TRACE Urine Nitrite NEG Urine Bilirubin NEG Urine Urobilinogen POS Urine Leukocyte Esterase SMALL Urine WBC (Auto) 1-5 /hpf Urine RBC (Auto) 0-4 /hpf Urine Hyaline Casts (Auto) 1-5 /lpf Urine Epithelial Cells (Auto) >30 /lpf Urine Bacteria (Auto) 1+ Urine Yeast (Auto) Test 04/22/17 07:05 White Blood Count 8.25 K/uL Red Blood Count 4.12 M/uL Hemoglobin 10.0 g/dL Hematocrit 32.5 % Mean Corpuscular Volume 78.9 fL Mean Corpuscular Hemoglobin 24.3 pg Mean Corpuscular Hemoglobin Concent 30.8 g/dl Platelet Count 303 K/uL Mean Platelet Volume 9.1 fL Neutrophils (%) (Auto) 67.6 % Lymphocytes (%) (Auto) 18.9 % Monocytes (%) (Auto) 8.5 % Eosinophils (%) (Auto) 4.4 % Basophils (%) (Auto) 0.4 % Neutrophils # (Auto) 5.58 K/uL Lymphocytes # (Auto) 1.56 K/uL Monocytes # (Auto) 0.70 K/uL Eosinophils # (Auto) 0.36 K/uL Basophils # (Auto) 0.03 K/uL RDW Standard Deviation 45.5 fL RDW Coefficient of Variation 15.7 % Immature Granulocyte % (Auto) 0.2 % Immature Granulocyte # (Auto) 0.02 K/uL Sodium Level 135 mmol/L Potassium Level 4.2 mmol/L Chloride Level 104 mmol/L Carbon Dioxide Level 22 mmol/L Anion Gap 9.0 mmol/L Blood Urea Nitrogen 5 mg/dl Creatinine 0.58 mg/dl Est Creatinine Clear Calc Drug Dose 60.4 ml/min Estimated GFR () 95.4 Estimated GFR (Non- 82.3 BUN/Creatinine Ratio 9.2 Random Glucose 98 mg/dl Calcium Level 7.9 mg/dl Magnesium Level 1.7 mg/dl (Maranda Beltran ., SHRADDHA) Assessment and Plan 86yo female here with generalized abdominal pain, n/v 1. SBO - likely due to adhesions. Has a ventral hernia on CT but this does not appear to be the cause of the obstruction. NG tube out, IVF, clear liquid diets. Appreciate surgical consultation. No indication for IV abx at this time. 2. transverse colon mass - she has a microcytic anemia, has had change in bowel habits, and recent anorexia. All worrisome signs of colon cancer. Colonoscopy tomorrow per GI 3. ventral hernia - no Rx at this time. 4. hypokalemia - repleated 5. hypomagnesemia - repleated 6. hyponatremia - likely hypotonic hyponatremia from volume depletion. Cont IVF ; repeat prp am. 7. dementia - noted; holding home meds (aricept, etc) 8. microcytic anemia - stable - likely due to Fe def. CBC am. 9. T2DM - controlled 10. HTN - controlled 11. frequent burping/hiccups at home - CT with thickening of esophagus - this is c/w GERD and esophagitis. Cont IV H2 [place] 11. DVT proph - add heparin in AM. Full code (Maranda Beltran ., SHRADDHA) Attending Attestation: Pt seen/examined, chart reviewed, care plan d/w SHRADDHA Beltran. I agree w/ the cross components of her documentation. Pt feeling much better today. In the chair watching TV during the visit. +flatus and multiple stools; tolerating clears. VSS no fever gen - NAD mouth - MMM heart - RRR lungs - CTA b/l abd - less distended/soft, BS+, NT, ventral hernia present but reducible ext - no edema A/P: 1. SBO - resolving; diet per GI/gen surg 2. transverse colon mass - prep for colonoscopy tonight; endoscopy tomorrow 3. hyponatremia - resolved 4. hypomagnesemia - replace, repeat mag in am family updated ok to resume dementia meds, etc Ralph Fournier MD (Ralph Fournier MD)
[2017-04-22] MEDS: FAMOTIDINE IV INJ 20 MG in DEXTROSE 5% 100ML 100 ML IV SCH ×2 (11:56→22:07)
--- NOTE | 2017-04-22 12:26 | Medical Student: [facility] ---
Med Student Progress Note Date of Service Apr 22, 2017. Meera Chaparro is a 86-year-old female with a history of HTN, DM, dementia, and a ventral hernia who is hospital day 3 for small bowel obstruction. She says she is doing well after having had a bowel movement this morning and continuing to pass flatus. She denies fevers, new chills, CP, dysuria, or increased urinary frequency. She says she was somewhat short of breath after walking around the unit, and she denies any calf pain. She denies any abdominal pain other than soreness over her hernia. Patient is currently joking and eating her lunch with her two of her children. Review of Systems Notes: see HPI Objective Vital Signs Date Time Temp Pulse Resp B/P (MAP) Pulse Ox O2 Delivery O2 Flow Rate FiO2 04/22/17 08:05 36.8 92 18 134/70 (91) 98 Room Air 04/22/17 08:05 Room Air 04/21/17 23:45 Room Air 04/21/17 23:40 36.7 96 16 133/76 (95) 97 Room Air 04/21/17 15:45 Room Air 04/21/17 15:35 36.8 95 18 143/61 (88) 97 Room Air Physical Exam General Appearance: no apparent distress Cardiovascular: regular rate, rhythm, no edema, no gallop Abdomen: normal bowel sounds, non tender, + pertinent finding (sore over hernia ) Extremities: normal inspection, no pedal edema, no calf tenderness Neurologic/Psychiatric: alert, + pertinent finding (somewhat confused; has to be reminded of where her calves are) Laboratory Results Last 24 Hours Test 04/21/17 15:00 04/21/17 23:48 04/22/17 05:41 04/22/17 07:05 Urine Color YELLOW Urine Appearance CLEAR Urine pH 8.0 Urine Specific [place] 1.013 Urine Protein NEG Urine Glucose (UA) NEG Urine Ketones 1+ Urine Occult Blood TRACE Urine Nitrite NEG Urine Bilirubin NEG Urine Urobilinogen POS Urine Leukocyte Esterase SMALL Urine WBC (Auto) 1-5 /hpf Urine RBC (Auto) 0-4 /hpf Urine Hyaline Casts (Auto) 1-5 /lpf Urine Epithelial Cells (Auto) >30 /lpf Urine Bacteria (Auto) 1+ Urine Yeast (Auto) Bedside Glucose 103 mg/dl 101 mg/dl White Blood Count 8.25 K/uL Red Blood Count 4.12 M/uL Hemoglobin 10.0 g/dL Hematocrit 32.5 % Mean Corpuscular Volume 78.9 fL Mean Corpuscular Hemoglobin 24.3 pg Mean Corpuscular Hemoglobin Concent 30.8 g/dl Platelet Count 303 K/uL Mean Platelet Volume 9.1 fL Neutrophils (%) (Auto) 67.6 % Lymphocytes (%) (Auto) 18.9 % Monocytes (%) (Auto) 8.5 % Eosinophils (%) (Auto) 4.4 % Basophils (%) (Auto) 0.4 % Neutrophils # (Auto) 5.58 K/uL Lymphocytes # (Auto) 1.56 K/uL Monocytes # (Auto) 0.70 K/uL Eosinophils # (Auto) 0.36 K/uL Basophils # (Auto) 0.03 K/uL RDW Standard Deviation 45.5 fL RDW Coefficient of Variation 15.7 % Immature Granulocyte % (Auto) 0.2 % Immature Granulocyte # (Auto) 0.02 K/uL Sodium Level 135 mmol/L Potassium Level 4.2 mmol/L Chloride Level 104 mmol/L Carbon Dioxide Level 22 mmol/L Anion Gap 9.0 mmol/L Blood Urea Nitrogen 5 mg/dl Creatinine 0.58 mg/dl Est Creatinine Clear Calc Drug Dose 60.4 ml/min Estimated GFR () 95.4 Estimated GFR (Non- 82.3 BUN/Creatinine Ratio 9.2 Random Glucose 98 mg/dl Calcium Level 7.9 mg/dl Magnesium Level 1.7 mg/dl Medications Current Inpatient Medications Medications (Trade) Dose Ordered Sig/Rocio Route Start Time Stop Time Status Last Admin Dose Admin Ioversol (Optiray 320) 116 ml UD PRN IV 04/20/17 19:15 04/24/17 19:14 Miscellaneous Information (Order Awaiting Action) 1 ea QS N/A 04/21/17 00:00 05/21/17 00:00 Miscellaneous Information (Order Awaiting Action) 1 ea QS N/A 04/21/17 00:00 05/21/17 00:00 Ondansetron HCl (Zofran Inj) 4 mg Q6H PRN IV 04/20/17 20:30 05/20/17 20:29 Acetaminophen 100 ml @ 400 mls/hr Q8H PRN IV 04/20/17 20:30 05/20/17 20:29 Glucose (Glucose 40% Gel) UD PRN PO 04/20/17 20:30 05/20/17 20:29 Glucose (Glucose Chew Tab) 1 tabs UD PRN PO 04/20/17 20:30 05/20/17 20:29 Dextrose (Dextrose 50% 50ML Syringe) 50 ml UD PRN IV 04/20/17 20:30 05/20/17 20:29 Glucagon (Glucagon Inj) 1 mg UD PRN SQ 04/20/17 20:30 05/20/17 20:29 Potassium Chloride/Sodium Chloride 1,000 ml @ 100 mls/hr Q10H IV 04/20/17 22:30 05/20/17 22:29 04/22/17 05:02 100 MLS/HR Morphine Sulfate (MoRPHine SULFATE INJ) 2 mg Q2H PRN IV 04/20/17 20:30 05/04/17 20:29 Morphine Sulfate (MoRPHine SULFATE INJ) 4 mg Q2H PRN IV 04/20/17 20:30 05/04/17 20:29 Famotidine 20 mg/ Dextrose 102 ml @ 200 mls/hr Q12H IV 04/20/17 22:30 05/20/17 22:29 04/22/17 11:56 200 MLS/HR Hydralazine HCl (HydrALAZINE INJ) 10 mg Q4H PRN IV. 04/20/17 22:15 05/20/17 22:14 Insulin Aspart (novoLOG ASPART) SLIDING SCALE If C... ACHS SC 04/22/17 12:00 05/22/17 11:59 Assessment and Plan Assessment and Plan: Krysta is a 86-year-old female with a history of HTN, DM, dementia, and a ventral hernia who is hospital day 3 for small bowel obstruction. She says she is doing much better after having a BM this AM. She is currently eating without pain. 1. SBO Resolved 2. Colonic mass Patient scheduled for colonoscopy tomorrow. She is still waiting to be seen by Dr. Acevedo. 3. Ventral hernia No tx at this time 4. Hypokalemia Resolved - level is 4.2 today Stop KCl administration 5. Hyponatremia Resolved - level is 135 today 6. Dementia Continue to hold Aricept 7. HTN Continue to hold home medications. Continue hydralazine 8. DVT prophylaxis Continue to ambulate as tolerated Continued [facility] stay due to: inadequate po fluid intake, ambulation difficulties , multiple IV medications needed Discharge planning: uncertain
[2017-04-22 15:18] VITALS: BP 120/58; PULSE 66; TEMP 36.6; O2SAT 100
[2017-04-22] MEDS ORDERED: DONEPEZIL HCL 5 MG TAB PO ONE (15:44)
[2017-04-22] MEDS: METHENAMINE HIPPURATE 1 GM TAB PO SCH ×2 (17:45→20:32)
[2017-04-22] MEDS: LAVAGE SOLUTION 4000ML PO SCH (17:57)
[2017-04-22 18:52] VITALS: O2SAT 96
[2017-04-22] MEDS: MEMANTINE 10 MG TAB PO SCH (20:33)
[2017-04-22] MEDS ORDERED: NURSING VERBAL MED ORDER ONE (23:00)
[2017-04-22 23:30] VITALS: BP 130/72; PULSE 77; TEMP 36.8; O2SAT 97
[2017-04-23] VITALS (9 sets, daily range): BP systolic 121–158; BP diastolic 55–78; PULSE 88–119; TEMP 36.6–39; O2SAT 91–97
[2017-04-23] MEDS: NSS + 20MEQ KCL 1000ML 1,000 ML IV SCH ×2 (00:51→13:11)
[2017-04-23] MEDS: LAVAGE SOLUTION 4000ML PO SCH (03:18)
[2017-04-23] MEDS: INSULIN ASPART 100 UNITS/ML 3 ML PEN SC SCH ×2 (06:00→12:00)
[2017-04-23 07:31] LABS: BUN/CREATININE RATIO 5.3 (10-20); CALCIUM 7.7 mg/dl (8.5-10.1); CREATININE 0.6 mg/dl (0.60-1.20); POTASSIUM 4.4 mmol/L (3.5-5.1)
[2017-04-23] MEDS: METHENAMINE HIPPURATE 1 GM TAB PO SCH ×2 (09:00→21:06)
[2017-04-23] MEDS: DONEPEZIL HCL 5 MG TAB PO SCH (09:00)
[2017-04-23] MEDS: MEMANTINE 10 MG TAB PO SCH ×2 (09:00→21:06)
[2017-04-23] MEDS ORDERED: PROPOFOL IV EMULSION 10 MG/ML 20 ML VIAL IV ONE (10:28)
[2017-04-23] MEDS ORDERED: LIDOCAINE HCL 2% 2 ML VIAL (20MG/ML) ONE (10:28)
[2017-04-23] MEDS: FAMOTIDINE IV INJ 20 MG in DEXTROSE 5% 100ML 100 ML IV SCH ×2 (10:30→22:05)
[2017-04-23] MEDS ORDERED: ENDOSCOPIC MARKER 5 ML SYR ONE (10:47)
--- NOTE | 2017-04-23 11:17 | GI REPORT ---
Procedure Date: 04/23/2017 10:36 AM Procedure: Colonoscopy Indications: Abnormal CT of the GI tract Medicines: Monitored Anesthesia Care Complications: No immediate complications. Estimated Blood Loss: Estimated blood loss: none. Procedure: Pre-Anesthesia Assessment: - Prior to the procedure, a History and Physical was performed, and patient medications and allergies were reviewed. The patient's tolerance of previous anesthesia was also reviewed. The risks and benefits of the procedure and the sedation options and risks were discussed with the patient. All questions were answered, and informed consent was obtained. Prior Anticoagulants: The patient has taken aspirin, last dose was 5 days prior to procedure. ASA Grade Assessment: III - A patient with severe systemic disease. After reviewing the risks and benefits, the patient was deemed in satisfactory condition to undergo the procedure. After I obtained informed consent, the scope was passed under direct vision. Throughout the procedure, the patient's blood pressure, pulse, and oxygen saturations were monitored continuously. The scope was introduced through the anus with the intention of advancing to the ileum. The scope was advanced to the transverse colon before the procedure was aborted. Medications were given. The colonoscopy was aborted due to a partially obstructing mass. Applying abdominal pressure did not allow for the successful completion of the procedure. The patient tolerated the procedure well. The quality of the bowel preparation was good. No anatomical landmarks were photographed. Findings: An infiltrative partially obstructing medium-sized mass was found in the transverse colon. The mass was circumferential. The mass measured five cm in length. No bleeding was present. Biopsies were taken with a cold forceps for histology. Area was tattooed with an injection of 4 mL of Stacia ink. Multiple small-mouthed diverticula were found in the sigmoid colon. Impression: - The procedure was aborted due to partially obstructing mass. 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 Biopsied. Tattooed. - Diverticulosis in the sigmoid colon. Recommendation: - [facility] patient [facility] for [facility] care. - Await pathology results. Richardcristian Acevedo DO 04/23/2017 11:16:58 AM This report has been signed electronically. Note Initiated On: 04/23/2017 10:36 AM I attest to the content of the Intraoperative Record and orders documented therein, exceptions below
--- NOTE | 2017-04-23 11:36 | Medical Student: [facility] ---
Med Student Progress Note Date of Service Apr 23, 2017. Subjective Pt evaluation today including: conversation w/ patient, physical exam Pain: None PO Intake: NPO for colonoscopy Voiding: incontinence (of bowel and bladder) Krysta is a 86-year-old female with a history of HTN, DM, dementia, and a ventral hernia who is hospital day 4 for resolved small bowel obstruction. Due to mass seen in transverse colon on CT, patient is scheduled for colonoscopy today and underwent bowel prep. Pt believes bowel prep has caused her to become incontinent of her bowels. Today she feels "weak." She also reports nausea causing her to gag without vomiting and fatigue. Review of Systems Constitutional: + fatigue, No fever, No chills Respiratory: No cough, No shortness of breath Cardiac: No chest pain Abdomen: + nausea, + diarrhea, No vomiting, No constipation Musculoskeletal: No calf pain Female : + incontinence, No dysuria, No urinary frequency Objective Vital Signs Date Time Temp Pulse Resp B/P (MAP) Pulse Ox O2 Delivery O2 Flow Rate FiO2 04/23/17 11:11 110 22 176/83 (114) 94 Room Air 04/23/17 10:55 102 20 156/71 (99) 95 Room Air 04/23/17 09:30 37 91 20 162/75 (104) 98 Room Air 04/23/17 08:58 Room Air 04/23/17 07:11 36.7 92 18 132/74 (93) 97 Room Air 04/23/17 00:05 Room Air 04/22/17 23:30 36.8 77 16 130/72 (91) 97 Room Air 04/22/17 18:52 96 Room Air 04/22/17 16:10 Room Air 04/22/17 15:18 36.6 66 18 120/58 (78) 100 Room Air Physical Exam General Appearance: no apparent distress Respiratory/Chest: + rales (left lower lung base - otherwise clear to auscultation) Cardiovascular: regular rate, rhythm, + systolic murmur Extremities: normal inspection, no pedal edema, no calf tenderness Laboratory Results Last 24 Hours Test 04/22/17 12:08 04/22/17 17:53 04/22/17 20:40 04/23/17 06:02 Bedside Glucose 175 mg/dl 93 mg/dl 128 mg/dl 118 mg/dl Test 04/23/17 06:33 Sodium Level 137 mmol/L Potassium Level 4.4 mmol/L Chloride Level 106 mmol/L Carbon Dioxide Level 22 mmol/L Anion Gap 9.0 mmol/L Blood Urea Nitrogen 3 mg/dl Creatinine 0.60 mg/dl Est Creatinine Clear Calc Drug Dose 58.4 ml/min Estimated GFR () 94.3 Estimated GFR (Non- 81.4 BUN/Creatinine Ratio 5.3 Random Glucose 118 mg/dl Calcium Level 7.7 mg/dl Magnesium Level 2.0 mg/dl Medications Current Inpatient Medications Medications (Trade) Dose Ordered Sig/Rocio Route Start Time Stop Time Status Last Admin Dose Admin Ioversol (Optiray 320) 116 ml UD PRN IV 04/20/17 19:15 04/24/17 19:14 Miscellaneous Information (Order Awaiting Action) 1 ea QS N/A 04/21/17 00:00 05/21/17 00:00 Miscellaneous Information (Order Awaiting Action) 1 ea QS N/A 04/21/17 00:00 05/21/17 00:00 Ondansetron HCl (Zofran Inj) 4 mg Q6H PRN IV 04/20/17 20:30 05/20/17 20:29 04/22/17 20:29 4 MG Acetaminophen 100 ml @ 400 mls/hr Q8H PRN IV 04/20/17 20:30 05/20/17 20:29 Glucose (Glucose 40% Gel) UD PRN PO 04/20/17 20:30 05/20/17 20:29 Glucose (Glucose Chew Tab) 1 tabs UD PRN PO 04/20/17 20:30 05/20/17 20:29 Dextrose (Dextrose 50% 50ML Syringe) 50 ml UD PRN IV 04/20/17 20:30 05/20/17 20:29 Glucagon (Glucagon Inj) 1 mg UD PRN SQ 04/20/17 20:30 05/20/17 20:29 Potassium Chloride/Sodium Chloride 1,000 ml @ 100 mls/hr Q10H IV 04/20/17 22:30 05/20/17 22:29 04/23/17 00:51 100 MLS/HR Morphine Sulfate (MoRPHine SULFATE INJ) 2 mg Q2H PRN IV 04/20/17 20:30 05/04/17 20:29 Morphine Sulfate (MoRPHine SULFATE INJ) 4 mg Q2H PRN IV 04/20/17 20:30 05/04/17 20:29 Famotidine 20 mg/ Dextrose 102 ml @ 200 mls/hr Q12H IV 04/20/17 22:30 05/20/17 22:29 04/22/17 22:07 200 MLS/HR Hydralazine HCl (HydrALAZINE INJ) 10 mg Q4H PRN IV. 04/20/17 22:15 05/20/17 22:14 Polyethylene Glycol/ Electrolytes (Golytely Soln) 1 dose 0300,1800 PO 04/22/17 18:00 04/23/17 12:00 04/23/17 03:18 1 DOSE Memantine (Namenda Tab) 10 mg BID PO 04/22/17 21:00 05/22/17 20:59 04/22/17 20:33 10 MG Methenamine Hippurate (Urex Tab) 1 gm BID PO 04/22/17 15:45 05/22/17 15:44 04/22/17 20:32 1 GM Multivitamins (Multivitamin Tab) 1 tab DAILY PO 04/23/17 09:00 05/23/17 08:59 Donepezil HCl (Aricept Tab) 5 mg QAM PO 04/23/17 09:00 05/23/17 08:59 Insulin Aspart (novoLOG ASPART) SLIDING SCALE If C... Q6 SC 04/23/17 06:00 05/23/17 05:59 Assessment and Plan Assessment and Plan: Krysta is a 86-year-old female with a history of HTN, DM, dementia, and a ventral hernia who is hospital day 4 for resolved small bowel obstruction. CT showing abnormal colonic mass indicated colonoscopy which she has now received. Colonic mass - Colonoscopy complete, awaiting results. Daughter is here to hear news with her. Nausea - Continue to offer Zofran PRN HTN - Controlled, continue current management DM - Controlled, continue current management Dementia - Patient still confused at times, Aricept resumed DVT prophylaxis - Continue to ambulate as tolerated Anemia - Stable - Hb of 10 today (9.8 yesterday) SBO - Resolved Ventral hernia - No tx at this time Hypokalemia - Resolved - level is 4.4 today Hyponatremia - Resolved - level is 137 today Continued [facility] stay due to: inadequate po fluid intake, ambulation difficulties , multiple IV medications needed Discharge planning: uncertain
--- NOTE | 2017-04-23 12:01 | DIAGNOSTIC IMAGING REPORT ---
CHEST 2 VIEWS ROUTINE CLINICAL HISTORY: Aspiration COMPARISON STUDY: 07/03/2016 FINDINGS: The cardiac and mediastinal contours are normal. There are small bilateral pleural effusions. Minimally increased left basal markings are likely atelectatic. There is no lobar consolidation. There is no overt failure. There is a 16 mm left perihilar nodule versus summation. Follow-up is recommended.[ IMPRESSION: 1. 16 mm left perihilar nodule versus summation. Follow-up is recommended 2. Small left pleural effusion Electronically signed by: Amado Guzman M.D. 04/23/2017 11:59 AM Dictated Date/Time: 04/23/2017 11:58 AM
--- NOTE | 2017-04-23 12:36 | Anesthesiology Progress Note ---
Anesthesia Post Op Note Date & Time Apr 23, 2017 at 12:34 Vital Signs Pain Intensity: 0 Vital Signs Past 12 Hours Date Time Temp Pulse Resp B/P (MAP) Pulse Ox O2 Delivery O2 Flow Rate FiO2 04/23/17 12:00 96 22 154/86 (108) 94 Room Air 04/23/17 11:20 101 22 164/79 (107) 94 Room Air 04/23/17 11:11 110 22 176/83 (114) 94 Room Air 04/23/17 10:55 102 20 156/71 (99) 95 Room Air 04/23/17 09:30 37 91 20 162/75 (104) 98 Room Air 04/23/17 08:58 Room Air 04/23/17 07:11 36.7 92 18 132/74 (93) 97 Room Air Notes Mental Status: alert / awake / arousable, participated in evaluation Pt Amnestic to Procedure: Yes Nausea / Vomiting: adequately controlled Pain: adequately controlled Airway Patency, RR, SpO2: stable & adequate BP & HR: stable & adequate Hydration State: stable & adequate Anesthetic Complications: no major complications apparent Anesthetic Complications: patient noted to have small amount of bilious emesis during colonoscopy. No evidence of aspiration intraop and oxygen saturations appropriate during case and in recovery. In recovery though, patient noted to have bilateral crackles at bases. Patient sent for CXR. Read was significant for atelectasis and small bilateral pleural effusions. No evidence of pneumonitis or acute changes. Patient ok to return to the floor.
[2017-04-23] MEDS ORDERED: ALBUT/IPRATROP 3MG/0.5MG NEB 3 ML VIAL INH ONE (12:45)
[2017-04-23] MEDS: MULTIVITAMIN TAB PO SCH (13:09)
--- NOTE | 2017-04-23 15:12 | Surgery Progress Note ---
Surgery Progress Note Date of Service Apr 23, 2017. Subjective pt seen with daughters at bedside s/p colonsoscopy this AM.she is feeling ok other than tired. scope showed large near obstructing colon mass c/w ca. Objective Vital Signs: Date Time Temp Pulse Resp B/P (MAP) Pulse Ox O2 Delivery O2 Flow Rate FiO2 04/23/17 13:18 36.6 92 16 156/78 (104) 97 04/23/17 13:17 105 20 92 Room Air 04/23/17 12:00 96 22 154/86 (108) 94 Room Air 04/23/17 11:20 101 22 164/79 (107) 94 Room Air 04/23/17 11:11 110 22 176/83 (114) 94 Room Air 04/23/17 10:55 102 20 156/71 (99) 95 Room Air 04/23/17 09:30 37 91 20 162/75 (104) 98 Room Air 04/23/17 08:58 Room Air 04/23/17 07:11 36.7 92 18 132/74 (93) 97 Room Air 04/23/17 00:05 Room Air 04/22/17 23:30 36.8 77 16 130/72 (91) 97 Room Air 04/22/17 18:52 96 Room Air 04/22/17 16:10 Room Air 04/22/17 15:18 36.6 66 18 120/58 (78) 100 Room Air General Appearance: no apparent distress Head: normocephalic, atraumatic Neck: no JVD Respiratory/Chest: no respiratory distress, no accessory muscle use Abdomen: non tender, soft Extremities: no pedal edema Laboratory Results: Results Past 24 Hours Test 04/22/17 17:53 04/22/17 20:40 04/23/17 06:02 04/23/17 06:33 Range/Units Bedside Glucose 93 128 118 70-90 mg/dl Sodium Level 137 136-145 mmol/L Potassium Level 4.4 3.5-5.1 mmol/L Chloride Level 106 98-107 mmol/L Carbon Dioxide Level 22 21-32 mmol/L Anion Gap 9.0 3-11 mmol/L Blood Urea Nitrogen 3 7-18 mg/dl Creatinine 0.60 0.60-1.20 mg/dl Est Creatinine Clear Calc Drug Dose 58.4 ml/min Estimated GFR () 94.3 Estimated GFR (Non- 81.4 BUN/Creatinine Ratio 5.3 10-20 Random Glucose 118 70-99 mg/dl Calcium Level 7.7 8.5-10.1 mg/dl Magnesium Level 2.0 1.8-2.4 mg/dl Assessment & Plan 04/23/17 large colon ca/mass transverse colon had a long discussion with patient and family. she is now feeling ok. option 1: perform transverse coloectomy, release small bowel adhesions, repair her large symptomatic incisional hernia best option because the colon mass will likely obstruct/perforate or bleed in near future discussed risks ( bleeding/infection/anastomotic leak, dvt/pe,mi, injury to other organs etc..) they are aware she is a relatively high risk patient options 2: no surgery and see how it goes poor options because of mass causing obstruction/perforation in future option 3: leave mass but perform diverting stoma. we discussed this implications of this and that the cancer would grow option4: colon stent not a real options because of location of the mass answered all of their questions. they understand the risks/nuances of each option. will proceed with open colon resection and repair of the hernia. consent signed. 04/22/17 86-year-old female with Partial SBO, Ventral Hernia, Transverse Colon Mass Seen with Dr. Dong Reviewed pt's KUB from 04/21/2017. Patient improving. NG tube fell out yesterday- patient denies nausea or vomiting. +BM (loose) Will advance diet today. Patient reports that she is hungry. Dr. Dong spoke with Dr. Acevedo- patient in need of colonoscopy- consult GI to see if it can be done while patient is inpatient. as above. contrast in colon and pt now having BM's...will consult GI to eval transverse colon mass. clinically doing well. 86-year-old female with Partial SBO, Ventral Hernia, Transverse Colon Mass Seen with Dr. Dong Reviewed pt's KUB from 04/21/2017. Patient improving. NG tube fell out yesterday- patient denies nausea or vomiting. +BM (loose) Will advance diet today. Patient reports that she is hungry. Dr. Dong spoke with Dr. Aecvedo- patient in need of colonoscopy- consult GI to see if it can be done while patient is inpatient. as above. contrast in colon and pt now having BM's...will consult GI to eval transverse colon mass. clinically doing well.
--- NOTE | 2017-04-23 15:17 | Hospitalist Progress Note ---
Hospitalist Progress Note Date of Service Apr 23, 2017. (Maranda Beltran CRNP) Subjective Pt evaluation today including: conversation w/ patient, physical exam, chart review, conversation w/ training consultant Voiding: no voiding problems Ms. Rosa is drowsy from anesthesia for her colonoscopy earlier today. She does not have any complaints. Respiratory: + cough, No shortness of breath Cardiovascular: No chest pain Abdomen: + vomiting, No pain, No nausea All Other Systems: Reviewed and Negative (Maranda Beltran CRNP) Medications Medications Administered Medications (Trade) Dose Ordered Sig/Rocio Route Start Time Stop Time Status Last Admin Dose Admin Ondansetron HCl (Zofran Inj) 4 mg NOW STAT IV 04/20/17 15:40 04/20/17 15:42 DC 04/20/17 16:00 4 MG Ondansetron HCl (Zofran Inj) 4 mg NOW STAT IV 04/20/17 18:10 04/20/17 18:11 DC 04/20/17 18:23 4 MG Piperacillin Sod/ Tazobactam Sod 3.375 gm/Dextrose 115 ml @ 28.75 mls/ hr Q8H IV 04/21/17 04:00 04/21/17 08:50 DC 04/21/17 04:47 28.75 MLS/HR Ondansetron HCl (Zofran Inj) 4 mg Q6H PRN IV 04/20/17 20:30 05/20/17 20:29 04/22/17 20:29 4 MG Potassium Chloride/Sodium Chloride 1,000 ml @ 100 mls/hr Q10H IV 04/20/17 22:30 05/20/17 22:29 04/23/17 13:11 100 MLS/HR Famotidine 20 mg/ Dextrose 102 ml @ 200 mls/hr Q12H IV 04/20/17 22:30 05/20/17 22:29 04/22/17 22:07 200 MLS/HR Piperacillin Sod/ Tazobactam Sod 3.375 gm/Dextrose 115 ml @ 230 mls/hr NOW STAT IV 04/20/17 21:21 04/20/17 21:50 DC 04/21/17 00:17 230 MLS/HR Potassium Chloride 10 meq/ Prmx 100 ml @ 100 mls/hr Q1H IV 04/21/17 09:30 04/21/17 11:29 DC 04/21/17 10:30 100 MLS/HR Magnesium Sulfate 1 gm/Prmx 100 ml @ 100 mls/hr Q1H IV 04/22/17 08:18 04/22/17 10:17 DC 04/22/17 10:40 100 MLS/HR Insulin Aspart (novoLOG ASPART) SLIDING SCALE If C... ACHS SC 04/22/17 12:00 04/22/17 23:07 DC 04/22/17 18:04 4 UNITS Polyethylene Glycol/ Electrolytes (Golytely Soln) 1 dose 0300,1800 PO 04/22/17 18:00 04/23/17 12:00 DC 04/23/17 03:18 1 DOSE Memantine (Namenda Tab) 10 mg BID PO 04/22/17 21:00 05/22/17 20:59 04/22/17 20:33 10 MG Methenamine Hippurate (Urex Tab) 1 gm BID PO 04/22/17 15:45 05/22/17 15:44 04/22/17 20:32 1 GM Donepezil HCl (Aricept Tab) 5 mg 1544 ONCE PO 04/22/17 15:44 04/22/17 16:18 DC 04/22/17 16:50 5 MG Albuterol/ Ipratropium (Duoneb) 3 ml ONE ONCE INH 04/23/17 12:45 04/23/17 12:46 DC 04/23/17 13:17 3 ML (Maranda Beltran, SHRADDHA) Objective Vital Signs Date Time Temp Pulse Resp B/P (MAP) Pulse Ox O2 Delivery O2 Flow Rate FiO2 04/23/17 13:18 36.6 92 16 156/78 (104) 97 04/23/17 13:17 105 20 92 Room Air 04/23/17 12:00 96 22 154/86 (108) 94 Room Air 04/23/17 11:20 101 22 164/79 (107) 94 Room Air 04/23/17 11:11 110 22 176/83 (114) 94 Room Air 04/23/17 10:55 102 20 156/71 (99) 95 Room Air 04/23/17 09:30 37 91 20 162/75 (104) 98 Room Air 04/23/17 08:58 Room Air 04/23/17 07:11 36.7 92 18 132/74 (93) 97 Room Air 04/23/17 00:05 Room Air 04/22/17 23:30 36.8 77 16 130/72 (91) 97 Room Air 04/22/17 18:52 96 Room Air 04/22/17 16:10 Room Air 04/22/17 15:18 36.6 66 18 120/58 (78) 100 Room Air (Maranda Beltran CRNP) Physical Exam Notes: General: no distress Eyes: normal inspection, PERLL Respiratory: chest non tender, clear to auscultation, normal breath sounds, no respiratory distress, no accessory muscle use Cardiac: regular rate and rhythm, no rub or gallop, no murmur, no edema, no jvd GI/: active bowel sounds, no abd pain or tenderness, soft, non distended Extremities: normal range of motion, normal strength, non tender Neuro/Psych: drowsy, normal mood and affect Skin: normal color, dry (Maranda Beltran CRNP) Laboratory Results Last 24 Hours Test 04/22/17 17:53 04/22/17 20:40 04/23/17 06:02 04/23/17 06:33 Bedside Glucose 93 mg/dl 128 mg/dl 118 mg/dl Sodium Level 137 mmol/L Potassium Level 4.4 mmol/L Chloride Level 106 mmol/L Carbon Dioxide Level 22 mmol/L Anion Gap 9.0 mmol/L Blood Urea Nitrogen 3 mg/dl Creatinine 0.60 mg/dl Est Creatinine Clear Calc Drug Dose 58.4 ml/min Estimated GFR () 94.3 Estimated GFR (Non- 81.4 BUN/Creatinine Ratio 5.3 Random Glucose 118 mg/dl Calcium Level 7.7 mg/dl Magnesium Level 2.0 mg/dl (Maranda Beltran CRNP) Assessment and Plan 86yo female here with generalized abdominal pain, n/v 1. SBO - likely due to adhesions. Has a ventral hernia on CT but this does not appear to be the cause of the obstruction. NG tube out, IVF, clear liquid diets. No indication for IV abx at this time. Surgery plans to remove SBO tomorrow while removing transverse colon mass 2. transverse colon mass - she has a microcytic anemia, has had change in bowel habits, and recent anorexia. Colonoscopy 04/23 shows 5 cm obstructing mass of the transverse colon Bedside with Dr. Dong to address surgical option with family. Surgery plans to remove mass, sbo, and hernia. Risks and benefits reviewed at length with daughters. Surgery planned for 04/24 3. ventral hernia - see above 4. hypokalemia - repleated 5. hypomagnesemia - repleated 6. hyponatremia - likely hypotonic hyponatremia from volume depletion. Cont IVF ; repeat prp am. 7. dementia - noted; holding home meds (aricept, etc) 8. microcytic anemia - stable - likely due to Fe def. CBC am. 9. T2DM - controlled 10. HTN - controlled 11. frequent burping/hiccups at home - CT with thickening of esophagus - this is c/w GERD and esophagitis. Cont IV H2 [place] 11. DVT proph held for colonoscopy/surgery Full code (Maranda Beltran ., SHRADDHA) Attending Attestation: Pt seen/examined, chart reviewed, care plan d/w SHRADDHA Beltran. I agree w/ the cross components of her documentation. I saw the patient along with Ms. Beltran and Dr. Dong in the afternoon following her colonoscopy. She was quite sleepy but voiced understanding of the colonoscopy findings which included a large mass in the transverse colon that was nearly obstructing. She and her family stated they wished to proceed with surgery. About 1-2 hours after this initial visit I was called by nursing staff that the patient had a temp of 39 degrees. She was also hypoxic and requiring oxygen. Repeat cxr now showed LLL pneumonia febrile, VS otherwise stable BSGs acceptable gen - NAD mouth - MMM neck - no JVD heart - RRR lungs - extensive crackles left base posteriorly and left anterior chest abd - less distended once again, BS+, NT, ventral hernia present but reducible ext - no edema A/P: 1. SBO - resolved with normal bowel movements, flatus, and imaging showing improvement. 2. transverse colon mass - s/p colonoscopy showing findings worrisome for colon cancer. Unfortunately will need to cancel the colonoscopy tomorrow due to #4. 3. hypomagnesemia and hyponatremia - both resolved. 4. new left-sided pneumonia - suspect aspiration in etiology. start zosyn q8h. O2 as needed. MRSA swab; if latter is negative then hold on vanco; if + then add vanco 5. sepsis 2nd to #4 6. acute hypoxic respiratory failure 2nd to #4 - stable. 7. dementia - w/o behavioral disturbance check blood cx's prior to starting abx family updated on 2 occasions labs in am Ralph Fournier MD (Ralph Fournier MD)
[2017-04-23] MEDS ORDERED: ACETAMINOPHEN 500 MG TAB PO STA (15:58)
--- NOTE | 2017-04-23 16:22 | DIAGNOSTIC IMAGING REPORT ---
CHEST ONE VIEW PORTABLE HISTORY: fever, post-op, left basilar rales; eval for pneumonia COMPARISON: Chest 04/23/2017. FINDINGS: Interval development of a left perihilar airspace opacity. There is also interstitial and vascular thickening. Trace right and small left pleural effusions persist. Patient is slightly rotated. The heart remains mildly enlarged. No pneumothorax. Right shoulder prosthesis. IMPRESSION: Interval development of a left perihilar airspace opacity. There is also interstitial and vascular thickening and bilateral pleural effusions. Therefore, this could represent a pneumonia versus an asymmetric pulmonary edema. Electronically signed by: Kyler Enamorado M.D. 04/23/2017 4:21 PM Dictated Date/Time: 04/23/2017 4:19 PM
[2017-04-23] MEDS ORDERED: PIPERACILL/TAZOBAC IV 3.375 GM in DEXTROSE 5% 100ML 100 ML IV SCH (16:30)
[2017-04-23] MEDS ORDERED: PIPERACILL/TAZOBAC CONSULT ACTIVE PRN (16:45)
[2017-04-23] MEDS ORDERED: PIPERACILL/TAZOBAC IV 3.375 GM in DEXTROSE 5% 100ML IV ONE (17:00)
[2017-04-23] MEDS ORDERED: NURSING VERBAL MED ORDER ONE (19:45)
[2017-04-23] MEDS ORDERED: INSULIN ASPART 100 UNITS/ML 3 ML PEN SC SCH (21:00)
[2017-04-23] MEDS: PIPERACILL/TAZOBAC IV 3.375 GM in DEXTROSE 5% 100ML IV SCH (23:14)
[2017-04-24] MEDS ORDERED: NURSING VERBAL MED ORDER ONE ×2 (01:00→11:45)
[2017-04-24] MEDS: PIPERACILL/TAZOBAC IV 3.375 GM in DEXTROSE 5% 100ML IV SCH ×3 (05:29→22:10)
[2017-04-24] MEDS ORDERED: INSULIN ASPART 100 UNITS/ML 3 ML PEN SC SCH (06:00)
[2017-04-24 06:23] LABS: BASO % 0.2 %; BASO ABS # 0.03 K/uL (0-0.2); COMPLETE YES; EOS % 0.8 %; HEMATOCRIT 30.1 % (37-47); IG% 0.3 %; LYMPH % 7.7 %; LYMPH ABS # 1.42 K/uL (1.2-3.4); MEAN CORPUSCULAR HEMOGLOBIN 24.9 pg (25-34); MEAN CORPUSCULAR HGB CONC 31.6 g/dl (32-36); MONO % 5.3 %; NEUT % 85.7 %; PLATELET COUNT 294 K/uL (130-400); RED BLOOD COUNT 3.81 M/uL (4.2-5.4); WHITE BLOOD COUNT 18.42 K/uL (4.8-10.8)
[2017-04-24 06:57] LABS: CALCIUM 7.8 mg/dl (8.5-10.1); CREATININE 0.67 mg/dl (0.60-1.20); POTASSIUM 3.8 mmol/L (3.5-5.1)
[2017-04-24 07:13] VITALS: BP 124/68; PULSE 87; TEMP 36.8; O2SAT 96
[2017-04-24] MEDS ORDERED: ONDANSETRON INJ 2 MG/ML 2 ML VIAL IV PRN (07:45)
[2017-04-24] MEDS ORDERED: LABETALOL HCL IV 5 MG/ML 20ML IV PRN (07:45)
[2017-04-24] MEDS ORDERED: MEPERIDINE HCL 25 MG/ML CARP IV PRN (07:45)
[2017-04-24] MEDS ORDERED: ATROPINE SULFATE 0.1 MG/ML 5ML SYR IV PRN (07:45)
[2017-04-24] MEDS ORDERED: HYDROmorphone INJ 1 MG/ML SYR IV PRN (07:45)
[2017-04-24] MEDS ORDERED: EpHEDrine SULFATE INJ 50 MG/ML AMP IV PRN (07:45)
[2017-04-24] MEDS ORDERED: FENTANYL CITRATE INJ 50 MCG/1 ML 2 ML VIAL IV PRN (07:45)
[2017-04-24] MEDS: MEMANTINE 10 MG TAB PO SCH ×2 (09:00→20:42)
[2017-04-24] MEDS: MULTIVITAMIN TAB PO SCH (09:00)
[2017-04-24] MEDS: DONEPEZIL HCL 5 MG TAB PO SCH (09:00)
[2017-04-24] MEDS: METHENAMINE HIPPURATE 1 GM TAB PO SCH ×2 (09:00→20:42)
[2017-04-24] MEDS: INSULIN GLARGINE SOLOSTAR 100 UNITS/ML 3 ML PEN SC SCH (10:56)
[2017-04-24] MEDS: FAMOTIDINE IV INJ 20 MG in DEXTROSE 5% 100ML 100 ML IV SCH (10:57)
--- NOTE | 2017-04-24 11:19 | Surgery Progress Note ---
Surgery Progress Note Date of Service Apr 24, 2017. Subjective + feeling well pt has mild cough. primary service call yesterday..pt with fever and pneumonia on xray.. wbc 18,000 today. surgery put on hold for pneumonia. pt without GI complaints today. Objective Vital Signs: Date Time Temp Pulse Resp B/P (MAP) Pulse Ox O2 Delivery O2 Flow Rate FiO2 04/24/17 10:50 Room Air 04/24/17 07:13 36.8 87 18 124/68 (86) 96 Room Air 04/23/17 23:58 97 Nasal Cannula 2.0 04/23/17 23:24 36.8 88 17 121/55 (77) 97 Nasal Cannula 2.0 04/23/17 19:00 36.7 04/23/17 16:40 38.7 04/23/17 16:01 37.9 04/23/17 16:00 Nasal Cannula 2.0 04/23/17 15:51 39.0 119 18 158/68 (98) 91 Room Air 04/23/17 15:35 Room Air 04/23/17 13:18 36.6 92 16 156/78 (104) 97 04/23/17 13:17 105 20 92 Room Air 04/23/17 12:00 96 22 154/86 (108) 94 Room Air 04/23/17 11:20 101 22 164/79 (107) 94 Room Air General Appearance: no apparent distress Head: normocephalic, atraumatic Neck: no JVD Respiratory/Chest: no respiratory distress, no accessory muscle use Abdomen: non distended, soft Extremities: non-tender Laboratory Results: Results Past 24 Hours Test 04/23/17 17:22 04/23/17 20:46 04/24/17 05:41 04/24/17 06:06 Range/Units Bedside Glucose 173 229 136 70-90 mg/dl White Blood Count 18.42 4.8-10.8 K/uL Red Blood Count 3.81 4.2-5.4 M/uL Hemoglobin 9.5 12.0-16.0 g/dL Hematocrit 30.1 37-47 % Mean Corpuscular Volume 79.0 80-100 fL Mean Corpuscular Hemoglobin 24.9 25-34 pg Mean Corpuscular Hemoglobin Concent 31.6 32-36 g/dl Platelet Count 294 130-400 K/uL Mean Platelet Volume 9.0 7.4-10.4 fL Neutrophils (%) (Auto) 85.7 % Lymphocytes (%) (Auto) 7.7 % Monocytes (%) (Auto) 5.3 % Eosinophils (%) (Auto) 0.8 % Basophils (%) (Auto) 0.2 % Neutrophils # (Auto) 15.79 1.4-6.5 K/uL Lymphocytes # (Auto) 1.42 1.2-3.4 K/uL Monocytes # (Auto) 0.97 0.11-0.59 K/uL Eosinophils # (Auto) 0.15 0-0.5 K/uL Basophils # (Auto) 0.03 0-0.2 K/uL RDW Standard Deviation 46.1 36.4-46.3 fL RDW Coefficient of Variation 15.9 11.5-14.5 % Immature Granulocyte % (Auto) 0.3 % Immature Granulocyte # (Auto) 0.06 0.00-0.02 K/uL Sodium Level 136 136-145 mmol/L Potassium Level 3.8 3.5-5.1 mmol/L Chloride Level 104 98-107 mmol/L Carbon Dioxide Level 25 21-32 mmol/L Anion Gap 7.0 3-11 mmol/L Blood Urea Nitrogen 4 7-18 mg/dl Creatinine 0.67 0.60-1.20 mg/dl Est Creatinine Clear Calc Drug Dose 52.3 ml/min Estimated GFR () 91.0 Estimated GFR (Non- 78.5 BUN/Creatinine Ratio 6.0 10-20 Random Glucose 140 70-99 mg/dl Calcium Level 7.8 8.5-10.1 mg/dl Test 04/24/17 07:59 Range/Units Bedside Glucose 121 70-90 mg/dl Microbiology Results 04/23/17 Blood Culture, Received Pending 04/23/17 Blood Culture, Received Pending 04/23/17 MRSA DNA Surveillance Screen - Final, Complete Specimen Negative for MRSA by DNA Probe Assessment & Plan 04/24/17 unfortunately with post-pone todays surgery. will see in office in 2-3 weeks. will need to re-prep and plan electively. ok to advance diet. 04/23/17 large colon ca/mass transverse colon had a long discussion with patient and family. she is now feeling ok. option 1: perform transverse coloectomy, release small bowel adhesions, repair her large symptomatic incisional hernia best option because the colon mass will likely obstruct/perforate or bleed in near future discussed risks ( bleeding/infection/anastomotic leak, dvt/pe,mi, injury to other organs etc..) they are aware she is a relatively high risk patient options 2: no surgery and see how it goes poor options because of mass causing obstruction/perforation in future option 3: leave mass but perform diverting stoma. we discussed this implications of this and that the cancer would grow option4: colon stent not a real options because of location of the mass answered all of their questions. they understand the risks/nuances of each option. will proceed with open colon resection and repair of the hernia. consent signed. 04/22/17 86-year-old female with Partial SBO, Ventral Hernia, Transverse Colon Mass Seen with Dr. Dong Reviewed pt's KUB from 04/21/2017. Patient improving. NG tube fell out yesterday- patient denies nausea or vomiting. +BM (loose) Will advance diet today. Patient reports that she is hungry. Dr. Dong spoke with DrRonaldo Case- patient in need of colonoscopy- consult GI to see if it can be done while patient is inpatient. as above. contrast in colon and pt now having BM's...will consult GI to eval transverse colon mass. clinically doing well. 04/23/17 large colon ca/mass transverse colon had a long discussion with patient and family. she is now feeling ok. option 1: perform transverse coloectomy, release small bowel adhesions, repair her large symptomatic incisional hernia best option because the colon mass will likely obstruct/perforate or bleed in near future discussed risks ( bleeding/infection/anastomotic leak, dvt/pe,mi, injury to other organs etc..) they are aware she is a relatively high risk patient options 2: no surgery and see how it goes poor options because of mass causing obstruction/perforation in future option 3: leave mass but perform diverting stoma. we discussed this implications of this and that the cancer would grow option4: colon stent not a real options because of location of the mass answered all of their questions. they understand the risks/nuances of each option. will proceed with open colon resection and repair of the hernia. consent signed. 04/22/17 86-year-old female with Partial SBO, Ventral Hernia, Transverse Colon Mass Seen with Dr. Dong Reviewed pt's KUB from 04/21/2017. Patient improving. NG tube fell out yesterday- patient denies nausea or vomiting. +BM (loose) Will advance diet today. Patient reports that she is hungry. Dr. Dong spoke with DrRonaldo Acevedo- patient in need of colonoscopy- consult GI to see if it can be done while patient is inpatient. as above. contrast in colon and pt now having BM's...will consult GI to eval transverse colon mass. clinically doing well.
[2017-04-24] MEDS: INSULIN ASPART 100 UNITS/ML 3 ML PEN SC SCH ×3 (13:32→21:00)
--- NOTE | 2017-04-24 13:36 | Medical Student: [facility] ---
Med Student Progress Note Date of Service Apr 24, 2017. Subjective Pt evaluation today including: conversation w/ patient, physical exam Pain: None PO Intake: Adequate Voiding: no voiding problems Krysta is a 86-year-old female with a history of HTN, DM, dementia, and a ventral hernia who is hospital day 5 for resolved small bowel obstruction, post colonoscopy for transverse colon mass. Patient was informed yesterday that this is likely adenocarcinoma of the colon. Family, internal medicine team, and surgical team met yesterday to discuss options. It was ultimately decided that because the bowel was prepped, it was an ideal time to intervene surgically to remove cancer and anastomose healthy tissue. The family was in agreement that this would be palliative in preventing future obstruction. However, later in the day, nursing discovered a temp of 38.7. Pt reported some cough at that time and had rales at both lung bases on exam. CXR was obtained and showed interstitial thickening with bilateral pleural effusion. She was started on Zosyn. Pt continues to complain of cough which is now productive of yellow sputum. She denies any dysuria, however her daughter reports she is typically asymptomatic with her recurrent UTIs. She moved her bowels yesterday, but says she has not passed much flatus today. She says that her ventral hernia appears to be bulging more than usual. She reports she is eating well and is ambulating around the unit as tolerated. Review of Systems Constitutional: No fever, No chills Respiratory: + cough, + sputum Cardiac: No chest pain Abdomen: No pain, No nausea, No vomiting, No diarrhea, No constipation Female : No dysuria, No urinary frequency Objective Vital Signs Date Time Temp Pulse Resp B/P (MAP) Pulse Ox O2 Delivery O2 Flow Rate FiO2 04/24/17 10:50 Room Air 04/24/17 07:13 36.8 87 18 124/68 (86) 96 Room Air 04/23/17 23:58 97 Nasal Cannula 2.0 04/23/17 23:24 36.8 88 17 121/55 (77) 97 Nasal Cannula 2.0 04/23/17 19:00 36.7 04/23/17 16:40 38.7 04/23/17 16:01 37.9 04/23/17 16:00 Nasal Cannula 2.0 04/23/17 15:51 39.0 119 18 158/68 (98) 91 Room Air 04/23/17 15:35 Room Air 04/23/17 13:18 36.6 92 16 156/78 (104) 97 04/23/17 13:17 105 20 92 Room Air Physical Exam General Appearance: no apparent distress (Patient is sitting up in bed, pleasant, cooperative) Respiratory/Chest: + rales Cardiovascular: regular rate, rhythm, + systolic murmur Abdomen: non tender, + distended, + hernia Laboratory Results Last 24 Hours Test 04/23/17 17:22 04/23/17 20:46 04/24/17 05:41 04/24/17 06:06 Bedside Glucose 173 mg/dl 229 mg/dl 136 mg/dl White Blood Count 18.42 K/uL Red Blood Count 3.81 M/uL Hemoglobin 9.5 g/dL Hematocrit 30.1 % Mean Corpuscular Volume 79.0 fL Mean Corpuscular Hemoglobin 24.9 pg Mean Corpuscular Hemoglobin Concent 31.6 g/dl Platelet Count 294 K/uL Mean Platelet Volume 9.0 fL Neutrophils (%) (Auto) 85.7 % Lymphocytes (%) (Auto) 7.7 % Monocytes (%) (Auto) 5.3 % Eosinophils (%) (Auto) 0.8 % Basophils (%) (Auto) 0.2 % Neutrophils # (Auto) 15.79 K/uL Lymphocytes # (Auto) 1.42 K/uL Monocytes # (Auto) 0.97 K/uL Eosinophils # (Auto) 0.15 K/uL Basophils # (Auto) 0.03 K/uL RDW Standard Deviation 46.1 fL RDW Coefficient of Variation 15.9 % Immature Granulocyte % (Auto) 0.3 % Immature Granulocyte # (Auto) 0.06 K/uL Sodium Level 136 mmol/L Potassium Level 3.8 mmol/L Chloride Level 104 mmol/L Carbon Dioxide Level 25 mmol/L Anion Gap 7.0 mmol/L Blood Urea Nitrogen 4 mg/dl Creatinine 0.67 mg/dl Est Creatinine Clear Calc Drug Dose 52.3 ml/min Estimated GFR () 91.0 Estimated GFR (Non- 78.5 BUN/Creatinine Ratio 6.0 Random Glucose 140 mg/dl Calcium Level 7.8 mg/dl Test 04/24/17 07:59 10/25/17 12:08 Bedside Glucose 121 mg/dl 139 mg/dl Assessment and Plan Assessment and Plan: Krysta is a 86-year-old female with a history of HTN, DM, dementia, and a ventral hernia who is hospital day 5 for resolved small bowel obstruction, post colonoscopy for transverse colon mass. She has continued hospitalization due to presumed pneumonia. Presumed Pneumonia - Pt. reports worsened cough, now productive of yellow sputum. Lungs with crackles bilaterally. Continue Zosyn. MRSA negative. Monitor temperatures and white count. Pt informed if she is afebrile for 24 hours and has baseline functionality, she can be sent home. - Also consider UTI as explanation for fever due to 1+ bacteria seen on urinalysis. Zosyn still appropriate. Colonic Mass - Colonoscopy completed 04/23. Partially obstructing mass was biopsied - pathology pending. Due to new infection, surgery was canceled. Will be pursued as an outpatient by meeting with Dr. Dong in his office where they will discuss elective surgery. We will start patient on a residual diet to prevent obstruction. HTN - Controlled, continue current management DM - Controlled, continue current management Dementia - Patient still confused at times. Continue Aricept DVT prophylaxis - Continue to ambulate as tolerated Anemia - Stable. Hb of 9.5 today. SBO - Resolved Ventral hernia - Patient reported increased bulging today. Belly is tympanic, and she is not passing flatus. Likely bulging due to increase intraabdominal pressure. No tx at this time Hypokalemia - Resolved Hyponatremia - Resolved Continued [facility] stay due to: inadequate po fluid intake, multiple IV medications needed Discharge planning: uncertain
--- NOTE | 2017-04-24 14:02 | Hospitalist Progress Note ---
Hospitalist Progress Note Date of Service Apr 24, 2017. (Maranda Beltran CRNP) Subjective Pt evaluation today including: conversation w/ patient, physical exam, chart review, lab review, review of inpatient medication list Voiding: no voiding problems Ms. Rosa is sitting up in a chair, eating lunch. She does have a cough but is not sob, though she was somewhat dyspneic after ambulating the halls. Constitutional: + fever Respiratory: + cough, + dyspnea on exertion, No sputum, No shortness of breath Cardiovascular: No chest pain Abdomen: No pain, No nausea, No vomiting, No diarrhea All Other Systems: Reviewed and Negative (Maranda Beltran CRNP) Medications Medications Administered Medications (Trade) Dose Ordered Sig/Rocio Route Start Time Stop Time Status Last Admin Dose Admin Ondansetron HCl (Zofran Inj) 4 mg NOW STAT IV 04/20/17 15:40 04/20/17 15:42 DC 04/20/17 16:00 4 MG Ondansetron HCl (Zofran Inj) 4 mg NOW STAT IV 04/20/17 18:10 04/20/17 18:11 DC 04/20/17 18:23 4 MG Piperacillin Sod/ Tazobactam Sod 3.375 gm/Dextrose 115 ml @ 28.75 mls/ hr Q8H IV 04/21/17 04:00 04/21/17 08:50 DC 04/21/17 04:47 28.75 MLS/HR Ondansetron HCl (Zofran Inj) 4 mg Q6H PRN IV 04/20/17 20:30 05/20/17 20:29 04/22/17 20:29 4 MG Acetaminophen 100 ml @ 400 mls/hr Q8H PRN IV 04/20/17 20:30 05/20/17 20:29 04/23/17 16:05 400 MLS/HR Potassium Chloride/Sodium Chloride 1,000 ml @ 100 mls/hr Q10H IV 04/20/17 22:30 04/23/17 18:06 DC 04/23/17 13:11 100 MLS/HR Famotidine 20 mg/ Dextrose 102 ml @ 200 mls/hr Q12H IV 04/20/17 22:30 05/20/17 22:29 04/24/17 10:57 200 MLS/HR Piperacillin Sod/ Tazobactam Sod 3.375 gm/Dextrose 115 ml @ 230 mls/hr NOW STAT IV 04/20/17 21:21 04/20/17 21:50 DC 04/21/17 00:17 230 MLS/HR Potassium Chloride 10 meq/ Prmx 100 ml @ 100 mls/hr Q1H IV 04/21/17 09:30 04/21/17 11:29 DC 04/21/17 10:30 100 MLS/HR Magnesium Sulfate 1 gm/Prmx 100 ml @ 100 mls/hr Q1H IV 04/22/17 08:18 04/22/17 10:17 DC 04/22/17 10:40 100 MLS/HR Insulin Aspart (novoLOG ASPART) SLIDING SCALE If C... ACHS SC 04/22/17 12:00 04/22/17 23:07 DC 04/22/17 18:04 4 UNITS Polyethylene Glycol/ Electrolytes (Golytely Soln) 1 dose 0300,1800 PO 04/22/17 18:00 04/23/17 12:00 DC 04/23/17 03:18 1 DOSE Memantine (Namenda Tab) 10 mg BID PO 04/22/17 21:00 05/22/17 20:59 04/23/17 21:06 10 MG Methenamine Hippurate (Urex Tab) 1 gm BID PO 04/22/17 15:45 05/22/17 15:44 04/23/17 21:06 1 GM Donepezil HCl (Aricept Tab) 5 mg 1544 ONCE PO 04/22/17 15:44 04/22/17 16:18 DC 04/22/17 16:50 5 MG Albuterol/ Ipratropium (Duoneb) 3 ml ONE ONCE INH 04/23/17 12:45 04/23/17 12:46 DC 04/23/17 13:17 3 ML Piperacillin Sod/ Tazobactam Sod 3.375 gm/Dextrose 115 ml @ 230 mls/hr 1700 ONCE IV 04/23/17 17:00 04/23/17 17:29 DC 04/23/17 18:02 230 MLS/HR Piperacillin Sod/ Tazobactam Sod 3.375 gm/Dextrose 115 ml @ 28.75 mls/ hr Q8H IV 04/23/17 22:00 04/30/17 21:59 04/24/17 05:29 28.75 MLS/HR Insulin Aspart (novoLOG ASPART) SLIDING SCALE If C... ACHS SC 04/23/17 21:00 04/24/17 01:08 DC 04/23/17 21:08 3 UNITS Insulin Glargine (Lantus Solostar Pen) 10 units QAM SC 04/24/17 09:00 05/24/17 08:59 04/24/17 10:56 10 UNITS Insulin Aspart (novoLOG ASPART) SLIDING SCALE If C... ACHS SC 04/24/17 12:00 05/24/17 11:59 04/24/17 13:32 1 UNITS (Maranda Beltran CRNP) Objective Vital Signs Date Time Temp Pulse Resp B/P (MAP) Pulse Ox O2 Delivery O2 Flow Rate FiO2 04/24/17 10:50 Room Air 04/24/17 07:13 36.8 87 18 124/68 (86) 96 Room Air 04/23/17 23:58 97 Nasal Cannula 2.0 04/23/17 23:24 36.8 88 17 121/55 (77) 97 Nasal Cannula 2.0 04/23/17 19:00 36.7 04/23/17 16:40 38.7 04/23/17 16:01 37.9 04/23/17 16:00 Nasal Cannula 2.0 04/23/17 15:51 39.0 119 18 158/68 (98) 91 Room Air 04/23/17 15:35 Room Air (Maranda Beltran CRNP) Physical Exam Notes: General: no distress Eyes: normal inspection, PERLL Respiratory: chest non tender, crackles left base, normal breath sounds, no respiratory distress, no accessory muscle use Cardiac: regular rate and rhythm, no rub or gallop, no murmur, no edema, no jvd GI/: active bowel sounds, no abd pain or tenderness, soft, non distended Extremities: normal range of motion, normal strength, non tender Neuro/Psych: alert and oriented x 3, normal mood and affect Skin: normal color, dry (Guillard, Maranda ., INVESTMENT EXECUTIVE) Laboratory Results Last 24 Hours Test 04/23/17 17:22 04/23/17 20:46 04/24/17 05:41 04/24/17 06:06 Bedside Glucose 173 mg/dl 229 mg/dl 136 mg/dl White Blood Count 18.42 K/uL Red Blood Count 3.81 M/uL Hemoglobin 9.5 g/dL Hematocrit 30.1 % Mean Corpuscular Volume 79.0 fL Mean Corpuscular Hemoglobin 24.9 pg Mean Corpuscular Hemoglobin Concent 31.6 g/dl Platelet Count 294 K/uL Mean Platelet Volume 9.0 fL Neutrophils (%) (Auto) 85.7 % Lymphocytes (%) (Auto) 7.7 % Monocytes (%) (Auto) 5.3 % Eosinophils (%) (Auto) 0.8 % Basophils (%) (Auto) 0.2 % Neutrophils # (Auto) 15.79 K/uL Lymphocytes # (Auto) 1.42 K/uL Monocytes # (Auto) 0.97 K/uL Eosinophils # (Auto) 0.15 K/uL Basophils # (Auto) 0.03 K/uL RDW Standard Deviation 46.1 fL RDW Coefficient of Variation 15.9 % Immature Granulocyte % (Auto) 0.3 % Immature Granulocyte # (Auto) 0.06 K/uL Sodium Level 136 mmol/L Potassium Level 3.8 mmol/L Chloride Level 104 mmol/L Carbon Dioxide Level 25 mmol/L Anion Gap 7.0 mmol/L Blood Urea Nitrogen 4 mg/dl Creatinine 0.67 mg/dl Est Creatinine Clear Calc Drug Dose 52.3 ml/min Estimated GFR () 91.0 Estimated GFR (Non- 78.5 BUN/Creatinine Ratio 6.0 Random Glucose 140 mg/dl Calcium Level 7.8 mg/dl Test 04/24/17 07:59 04/24/17 12:08 Bedside Glucose 121 mg/dl 139 mg/dl (Maranda Beltran, SHRADDHA) Assessment and Plan 86yo female here with generalized abdominal pain, n/v SBO - likely due to adhesions. Has a ventral hernia on CT but this does not appear to be the cause of the obstruction. - NG tube out, resumed normal diet Transverse colon mass - she has a microcytic anemia, has had change in bowel habits, and recent anorexia. - Colonoscopy 04/23 shows 5 cm obstructing mass of the transverse colon - Surgery plans to remove mass, sbo, and hernia. Risks and benefits reviewed at length with daughters. Surgery pushed back for 3 weeks as patient has developed pneumonia Pneumonia - developed fever afternoon 04/23, chest x-ray with pleural effusion and left perihilar airspace opacity - Zosyn - afebrile today - may have a component of fluid overload given how quickly CXR changed from 1100 to 1600 04/24, currently her respiratory status is stable but would give lasix if she becomes dyspneic ventral hernia - see above hypokalemia - repleated hypomagnesemia - repleated hyponatremia - likely hypotonic hyponatremia from volume depletion. dementia - noted; holding home meds (aricept, etc) microcytic anemia - possibly due to combination of low Fe intake and malignant mass in colon - CBC am. T2DM - controlled HTN - controlled frequent burping/hiccups at home - CT with thickening of esophagus - this is c/ w GERD and esophagitis. Cont IV H2 [place] DVT proph held for colonoscopy/surgery Full code (Maranda Beltran ., SHRADDHA) DRUG SAFETY COORDINATOR Physician Supervision Note: I interviewed and examined the patient. Discussed with Maranda Beltran DRUG SAFETY COORDINATOR and agree with findings and plan as documented in the note. Any exceptions or clarifications are listed here: None Patient is doing reasonably well although her colonic surgery was postponed due to fevers. Patient is started on a liquid diet her daughter was at the bedside and updated Vital signs are stable Abdominal exam shows normoactive bowel sounds soft and tender physical ventral hernia Colonic malignancy with need for surgical resection to avoid mechanical obstruction incidentally noted left lung nodule of undetermined significance and concurrent treatment for healthcare associated pneumonia Documented By: Thiago Sanchez (Thiago Sanchez M.D.)
[2017-04-24 15:00] VITALS: BP 121/74; PULSE 88; TEMP 37.1; O2SAT 97
[2017-04-24] MEDS: FAMOTIDINE 20 MG TAB PO SCH (22:09)
[2017-04-24 23:35] VITALS: BP 137/74; PULSE 94; TEMP 36.8; O2SAT 96
[2017-04-25] MEDS: PIPERACILL/TAZOBAC IV 3.375 GM in DEXTROSE 5% 100ML IV SCH (05:53)
[2017-04-25 06:30] LABS: BUN/CREATININE RATIO 7.2 (10-20); CALCIUM 7.7 mg/dl (8.5-10.1); CREATININE 0.64 mg/dl (0.60-1.20); POTASSIUM 3.4 mmol/L (3.5-5.1)
[2017-04-25 07:09] LABS: BASO % 0.2 %; BASO ABS # 0.02 K/uL (0-0.2); COMPLETE YES; EOS % 1.9 %; HEMATOCRIT 29.2 % (37-47); IG% 0.2 %; LYMPH % 11.7 %; LYMPH ABS # 1.39 K/uL (1.2-3.4); MEAN CELL VOLUME 78.1 fL (80-100); MEAN CORPUSCULAR HEMOGLOBIN 24.6 pg (25-34); MEAN CORPUSCULAR HGB CONC 31.5 g/dl (32-36); MEAN PLATELET VOLUME 9.1 fL (7.4-10.4); MONO % 7.7 %; NEUT % 78.3 %; PLATELET COUNT 315 K/uL (130-400); RED BLOOD COUNT 3.74 M/uL (4.2-5.4); WHITE BLOOD COUNT 11.84 K/uL (4.8-10.8)
[2017-04-25 08:27] VITALS: BP 142/64; PULSE 89; TEMP 37; O2SAT 96
[2017-04-25] MEDS ORDERED: POTASSIUM CHLORIDE 10 MEQ TABCR PO ONE (09:15)
[2017-04-25] MEDS: INSULIN ASPART 100 UNITS/ML 3 ML PEN SC SCH ×2 (09:19→12:00)
[2017-04-25] MEDS: INSULIN GLARGINE SOLOSTAR 100 UNITS/ML 3 ML PEN SC SCH (09:27)
[2017-04-25] MEDS: MULTIVITAMIN TAB PO SCH (09:30)
[2017-04-25] MEDS: DONEPEZIL HCL 5 MG TAB PO SCH (09:30)
[2017-04-25] MEDS: METHENAMINE HIPPURATE 1 GM TAB PO SCH (09:31)
[2017-04-25] MEDS: MEMANTINE 10 MG TAB PO SCH (09:31)
--- NOTE | 2017-04-25 09:52 | Hospitalist Progress Note ---
Hospitalist Progress Note Date of Service Apr 25, 2017. Subjective Pt evaluation today including: conversation w/ patient, physical exam, chart review, lab review, review of inpatient medication list Pain: none PO Intake: small appetite Voiding: no voiding problems Ms. Rosa is feeling well this morning and would like to go back to [facility]. She is not short of breath, not couging, no nausea or abd pain. Constitutional: No fever, No chills Respiratory: No cough Cardiovascular: No chest pain Abdomen: No pain, No nausea, No vomiting Objective Vital Signs Date Time Temp Pulse Resp B/P (MAP) Pulse Ox O2 Delivery O2 Flow Rate FiO2 04/25/17 08:27 37.0 89 24 142/64 (90) 96 Room Air 04/25/17 08:22 Room Air 04/24/17 23:40 Room Air 04/24/17 23:35 36.8 94 18 137/74 (95) 96 Room Air 04/24/17 15:45 Nasal Cannula 2.0 04/24/17 15:00 37.1 88 16 121/74 (90) 97 Room Air 04/24/17 10:50 Room Air Physical Exam Notes: General: no distress Eyes: normal inspection, PERLL Respiratory: chest non tender, LLL fine crackles, normal breath sounds, no respiratory distress, no accessory muscle use Cardiac: regular rate and rhythm, no rub or gallop, no murmur, no edema, no jvd GI/: active bowel sounds, no abd pain or tenderness, soft, non distended Extremities: normal range of motion, normal strength, non tender Neuro/Psych: alert and oriented x 3, normal mood and affect Skin: normal color, dry Laboratory Results Last 24 Hours Test 04/24/17 12:08 04/24/17 17:14 04/24/17 21:08 04/25/17 05:32 Bedside Glucose 139 mg/dl 117 mg/dl 124 mg/dl White Blood Count 11.84 K/uL Red Blood Count 3.74 M/uL Hemoglobin 9.2 g/dL Hematocrit 29.2 % Mean Corpuscular Volume 78.1 fL Mean Corpuscular Hemoglobin 24.6 pg Mean Corpuscular Hemoglobin Concent 31.5 g/dl Platelet Count 315 K/uL Mean Platelet Volume 9.1 fL Neutrophils (%) (Auto) 78.3 % Lymphocytes (%) (Auto) 11.7 % Monocytes (%) (Auto) 7.7 % Eosinophils (%) (Auto) 1.9 % Basophils (%) (Auto) 0.2 % Neutrophils # (Auto) 9.27 K/uL Lymphocytes # (Auto) 1.39 K/uL Monocytes # (Auto) 0.91 K/uL Eosinophils # (Auto) 0.23 K/uL Basophils # (Auto) 0.02 K/uL RDW Standard Deviation 45.8 fL RDW Coefficient of Variation 15.9 % Immature Granulocyte % (Auto) 0.2 % Immature Granulocyte # (Auto) 0.02 K/uL Sodium Level 135 mmol/L Potassium Level 3.4 mmol/L Chloride Level 103 mmol/L Carbon Dioxide Level 24 mmol/L Anion Gap 8.0 mmol/L Blood Urea Nitrogen 5 mg/dl Creatinine 0.64 mg/dl Est Creatinine Clear Calc Drug Dose 54.7 ml/min Estimated GFR () 92.3 Estimated GFR (Non- 79.7 BUN/Creatinine Ratio 7.2 Random Glucose 93 mg/dl Calcium Level 7.7 mg/dl Test 04/25/17 08:19 Bedside Glucose 91 mg/dl Assessment and Plan 86yo female here with generalized abdominal pain, n/v SBO - likely due to adhesions. Has a ventral hernia on CT but this does not appear to be the cause of the obstruction. - NG tube out, low fiber diet Transverse colon mass - she has a microcytic anemia, has had change in bowel habits, and recent anorexia. - Colonoscopy 04/23 shows 5 cm obstructing mass of the transverse colon - Surgery plans to remove mass, sbo, and hernia. Risks and benefits reviewed at length with daughters. Surgery pushed back for 3 weeks as patient has developed pneumonia Pneumonia - developed fever afternoon 04/23, chest x-ray with pleural effusion and left perihilar airspace opacity - Zosyn started evening 04/23 - afebrile today - may have a component of fluid overload given how quickly CXR changed from 1100 to 1600 04/23, currently her respiratory status is stable but would give lasix if she becomes dyspneic ventral hernia - see above hypokalemia - repleated hypomagnesemia - repleated hyponatremia - likely hypotonic hyponatremia from volume depletion. dementia - noted; holding home meds (aricept, etc) microcytic anemia - possibly due to combination of low Fe intake and malignant mass in colon - CBC am. T2DM - controlled HTN - controlled frequent burping/hiccups at home - CT with thickening of esophagus - this is c/ w GERD and esophagitis. Cont IV H2 [place] Likely able to discharge to [facility] tomorrow. Would like to give her today on IV abx, make sure her respiratory status is good and that she is not developing further fluid overload and also make sure she can continue to eat/have bowel movements. DVT proph held for colonoscopy/surgery Full code
[2017-04-25] MEDS: FAMOTIDINE 20 MG TAB PO SCH (10:19)
[2017-04-25 11:16] VITALS: BP 142/77; PULSE 97; TEMP 37; O2SAT 97
[2017-04-25 11:37] VITALS: O2SAT 97
[2017-04-25] MEDS ORDERED: FAMO1TAB47 PO (12:47)
[2017-04-25] MEDS ORDERED: AMOX875T PO (12:47)
--- NOTE | 2017-04-25 12:50 | Discharge Instructions ---
Discharge Instructions Date of Service Apr 25, 2017. Admission Reason for Admission: SBO Discharge Discharge Diagnosis / Problem: bowel obstruction, pneumonia, colon cancer, lung nodule Discharge Goals Goal(s): Diagnostic testing, Therapeutic intervention Activity Recommendations Activity Limitations: as noted below Lifting Limitations: gradually increase as tolerated . Instructions / Follow-Up Instructions / Follow-Up Please eat a low fiber diet, low in vegetables and fruits Watch for signs of bowel obstruction, such as vomiting, bloating or no stool production, if so call your doctor or go to ER, if in pain go to ER We have stopped your blood pressure medicine please do not restart this unless instructed to by your primary doctor Current Hospital Diet Patient's current hospital diet: Diabetes Type 2 Diet, Low Fiber Diet Discharge Diet Recommended Diet: Low Fiber Diet Procedures Procedures Performed: Colonoscopy Pending Studies Studies pending at discharge: no Medical Emergencies . Who to Call and When: Medical Emergencies: If at any time you feel your situation is an emergency, please call 911 immediately. . Non-Emergent Contact Non-Emergency issues call your: Primary Care Provider, Surgeon Call Non-Emergent contact if: temperature is above 101, your pain is unusual for you . . "Provider Documentation" section prepared by Thiago Sanchez. . VTE Core Measure Inpt VTE Proph given/why not?: SCD's
[2017-04-25 12:58] VITALS: BP 142/77; PULSE 97; TEMP 37; O2SAT 97
--- NOTE | 2017-04-25 13:02 | Medical Student: [facility] ---
Med Student Progress Note Date of Service Apr 25, 2017. Subjective Pt evaluation today including: conversation w/ patient, physical exam Pain: None PO Intake: Residual diet Krysta is a 86-year-old female with a history of HTN, DM, dementia, and a ventral hernia who is hospital day 6 for resolved small bowel obstruction who continues to be hospitalized for pneumonia. Over the past 24 hours, pt reports no fevers or chills but is still coughing. She voiced she is ready to go home. Review of Systems Constitutional: + see HPI Respiratory: + cough, No shortness of breath Cardiac: No chest pain Abdomen: No pain, No nausea, No diarrhea, No constipation Objective Vital Signs Date Time Temp Pulse Resp B/P (MAP) Pulse Ox O2 Delivery O2 Flow Rate FiO2 04/25/17 11:37 97 Room Air 04/25/17 11:16 37.0 97 24 142/77 (98) 97 Room Air 04/25/17 08:27 37.0 89 24 142/64 (90) 96 Room Air 04/25/17 08:22 Room Air 04/24/17 23:40 Room Air 04/24/17 23:35 36.8 94 18 137/74 (95) 96 Room Air 04/24/17 15:45 Nasal Cannula 2.0 04/24/17 15:00 37.1 88 16 121/74 (90) 97 Room Air Physical Exam Eyes: bilateral eyes PERRL ENT: pharynx normal Neck: no adenopathy Respiratory/Chest: no respiratory distress, + crackles, + wheezing Cardiovascular: regular rate, rhythm, no gallop, + systolic murmur Abdomen: normal bowel sounds, non tender, + distended, + hernia Extremities: non-tender, no pedal edema Neurologic/Psychiatric: alert Laboratory Results Last 24 Hours Test 04/24/17 17:14 04/24/17 21:08 04/25/17 05:32 04/25/17 08:19 Bedside Glucose 117 mg/dl 124 mg/dl 91 mg/dl White Blood Count 11.84 K/uL Red Blood Count 3.74 M/uL Hemoglobin 9.2 g/dL Hematocrit 29.2 % Mean Corpuscular Volume 78.1 fL Mean Corpuscular Hemoglobin 24.6 pg Mean Corpuscular Hemoglobin Concent 31.5 g/dl Platelet Count 315 K/uL Mean Platelet Volume 9.1 fL Neutrophils (%) (Auto) 78.3 % Lymphocytes (%) (Auto) 11.7 % Monocytes (%) (Auto) 7.7 % Eosinophils (%) (Auto) 1.9 % Basophils (%) (Auto) 0.2 % Neutrophils # (Auto) 9.27 K/uL Lymphocytes # (Auto) 1.39 K/uL Monocytes # (Auto) 0.91 K/uL Eosinophils # (Auto) 0.23 K/uL Basophils # (Auto) 0.02 K/uL RDW Standard Deviation 45.8 fL RDW Coefficient of Variation 15.9 % Immature Granulocyte % (Auto) 0.2 % Immature Granulocyte # (Auto) 0.02 K/uL Sodium Level 135 mmol/L Potassium Level 3.4 mmol/L Chloride Level 103 mmol/L Carbon Dioxide Level 24 mmol/L Anion Gap 8.0 mmol/L Blood Urea Nitrogen 5 mg/dl Creatinine 0.64 mg/dl Est Creatinine Clear Calc Drug Dose 54.7 ml/min Estimated GFR () 92.3 Estimated GFR (Non- 79.7 BUN/Creatinine Ratio 7.2 Random Glucose 93 mg/dl Calcium Level 7.7 mg/dl Medications Current Inpatient Medications Medications (Trade) Dose Ordered Sig/Rocio Route Start Time Stop Time Status Last Admin Dose Admin Miscellaneous Information (Order Awaiting Action) 1 ea QS N/A 04/21/17 00:00 05/21/17 00:00 Miscellaneous Information (Order Awaiting Action) 1 ea QS N/A 04/21/17 00:00 05/21/17 00:00 Ondansetron HCl (Zofran Inj) 4 mg Q6H PRN IV 04/20/17 20:30 05/20/17 20:29 04/22/17 20:29 4 MG Acetaminophen 100 ml @ 400 mls/hr Q8H PRN IV 04/20/17 20:30 05/20/17 20:29 04/23/17 16:05 400 MLS/HR Glucose (Glucose 40% Gel) UD PRN PO 04/20/17 20:30 05/20/17 20:29 Glucose (Glucose Chew Tab) 1 tabs UD PRN PO 04/20/17 20:30 05/20/17 20:29 Dextrose (Dextrose 50% 50ML Syringe) 50 ml UD PRN IV 04/20/17 20:30 05/20/17 20:29 Glucagon (Glucagon Inj) 1 mg UD PRN SQ 04/20/17 20:30 05/20/17 20:29 Morphine Sulfate (MoRPHine SULFATE INJ) 2 mg Q2H PRN IV 04/20/17 20:30 05/04/17 20:29 Morphine Sulfate (MoRPHine SULFATE INJ) 4 mg Q2H PRN IV 04/20/17 20:30 05/04/17 20:29 Hydralazine HCl (HydrALAZINE INJ) 10 mg Q4H PRN IV. 04/20/17 22:15 05/20/17 22:14 Memantine (Namenda Tab) 10 mg BID PO 04/22/17 21:00 05/22/17 20:59 04/25/17 09:31 10 MG Methenamine Hippurate (Urex Tab) 1 gm BID PO 04/22/17 15:45 05/22/17 15:44 04/25/17 09:31 1 GM Multivitamins (Multivitamin Tab) 1 tab DAILY PO 04/23/17 09:00 05/23/17 08:59 04/25/17 09:30 1 TAB Donepezil HCl (Aricept Tab) 5 mg QAM PO 04/23/17 09:00 05/23/17 08:59 04/25/17 09:30 5 MG Piperacillin Sod/ Tazobactam Sod 3.375 gm/Dextrose 115 ml @ 28.75 mls/ hr Q8H IV 04/23/17 22:00 04/30/17 21:59 04/25/17 05:53 28.75 MLS/HR Piperacillin Sod/ Tazobactam Sod (Consult) 1 ea UD PRN N/A 04/23/17 16:45 05/23/17 16:44 Insulin Glargine (Lantus Solostar Pen) 10 units QAM SC 04/24/17 09:00 05/24/17 08:59 04/25/17 09:27 10 UNITS Insulin Aspart (novoLOG ASPART) SLIDING SCALE If C... ACHS SC 04/24/17 12:00 05/24/17 11:59 04/24/17 18:38 1 UNITS Famotidine (Pepcid Tab) 20 mg Q12H PO 04/24/17 22:00 05/24/17 21:59 04/25/17 10:19 20 MG Assessment and Plan Assessment and Plan: Krysta is a 86-year-old female with a history of HTN, DM, dementia, and a ventral hernia who is hospital day 5 for resolved small bowel obstruction, post colonoscopy for transverse colon mass. She has continued hospitalization due to presumed pneumonia. Overall, she says she feels well and says she is ready to go home. Discussion with the patient and family involved coordination of care post discharge. They understood that her primary care doctor will follow up with her for this hospitalization as well as coordinate care with specialty services. Presumed Pneumonia - Pt. continues to cough. Lungs with crackles bilaterally. MRSA negative so continued Zosyn alone appropriate at this point. She continues to be afebrile and WBC count has decreased to 11.84 today. Pt informed to follow up with her primary care provider within 1 week of discharge to monitor recovery. - Also consider UTI as explanation for fever due to 1+ bacteria seen on urinalysis yesterday. However, Zosyn still appropriate from Gram negative coverage if this is the case. Colonic Mass - Colonoscopy completed 04/23. 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 Will be pursued as an outpatient by meeting with Dr. Dong in his office where they will discuss elective surgery. Until then, patient was started on a residual diet. Today we discussed foods to avoid in order to maintain a low fiber diet with the pt and her daughters. They expressed understanding that this will help prevent colonic obstruction from the cancer. HTN - Controlled, continue current management DM - Controlled, continue current management Dementia - Patient still confused at times. Continue Aricept DVT prophylaxis - Continue to ambulate as tolerated. Pt continues to deny any calf pain. Anemia - Stable. Hb of 9.2 today. SBO - Resolved. Pt instructed today to monitor number of bowel movements and that she should be moving her bowels once per day. If she hasn't moved her bowels in 2 days, she should contact her primary care doctor. Ventral hernia - Patient reported increased bulging. Abdomen is tympanic. Likely bulging due to increase intraabdominal pressure. She has no pain or other symptoms associated with it so observation appropriate at this time. Hypokalemia - Previously resolved but measurement today revealed 3.4. Patient given 40 meq of potassium by mouth. Hyponatremia - Resolved Continued [facility] stay due to: inadequate po fluid intake, multiple IV medications needed Continued [facility] stay due to: inadequate po fluid intake, multiple IV medications needed Discharge planning: uncertain
--- NOTE | 2017-04-25 15:00 | Discharge Summary ---
Discharge Summary Date of Service Apr 25, 2017. (Maranda Beltran ., SHRADDHA) Discharge Summary Admission Date: Apr 20, 2017 at 20:21 Discharge Date: Apr 25, 2017 Discharge Disposition: Personal care Principal Diagnosis: small bowel obstruction Problems/Secondary Diagnoses: Pneumonia, DMII, hysterectomy, cholecystectomy Immunizations: Have You Had Influenza Vaccine: Yes Influenza Vaccine Date: May 06, 2010 History of Tetanus Vaccine?: Yes Tetanus Immunization Date: Dec 04, 2010 History of Pneumococcal: No History of Hepatitis B Vaccine: No Procedures: Abd US IMPRESSION: 1. Findings are consistent with a small bowel obstruction with a transition point identified involving a loop of ileum in the right lower quadrant. The distal small bowel and colon are decompressed. 2. No intraperitoneal free air is seen. Trace free fluid in the pelvis is likely on a reactive basis. 3. There is an approximately 4 cm annular mass lesion suggested in the transverse colon. This should be considered colon cancer until proven otherwise and follow-up with colonoscopy is recommended for further assessment. This does not represent the site of obstruction. 4. There are small foci of gas within the bladder lumen, likely related to instrumentation. Correlation with urinalysis will be required. 5. Trace pleural effusions. 6. Circumferential wall thickening is suggested in the distal esophagus. Correlate clinically for evidence of esophagitis. If further assessment is desired then endoscopy would be appropriate. 7. There is a large fat and fluid containing ventral hernia. 8. There is trabecular thickening and dense sclerosis seen involving the body of T9. 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 A solitary osteoblastic metastasis is considered much less likely. 9. Additional findings as above. Extremity US IMPRESSION: No definite foreign body is identified in the left forearm by ultrasound. Radiographic correlation is recommended. KUB IMPRESSION: Dilated small bowel. Contrast within normal caliber colon. The findings are indicative of a partial small bowel obstruction. CXR FINDINGS: The cardiac and mediastinal contours are normal. There are small bilateral pleural effusions. Minimally increased left basal markings are likely atelectatic. There is no lobar consolidation. There is no overt failure. There is a 16 mm left perihilar nodule versus summation. Follow-up is recommended.[ IMPRESSION: 1. 16 mm left perihilar nodule versus summation. Follow-up is recommended 2. Small left pleural effusion CXR IMPRESSION: Interval development of a left perihilar airspace opacity. There is also interstitial and vascular thickening and bilateral pleural effusions. Therefore, this could represent a pneumonia versus an asymmetric pulmonary edema. Consultations: Dr. Dong from gen surg (Maranda Beltran ., SHRADDHA) Medication Reconciliation New Medications: Amoxicillin & Pot Clavulanate (Augmentin 875-125 mg) 1 Tab Tab 875 MG PO BID, #16 TAB Famotidine (Famotidine) 20 Mg Tab 20 MG PO Q12H, #90 TAB Continued Medications: Acetaminophen (Tylenol Extra Strength) 500 Mg Tab 1000 MG PO DAILY PRN for PRN Ascorbic Acid (Vitamin C) 500 Mg Cap 250 MG PO DAILY Aspirin (Aspirin 81) 81 Mg Tab 81 MG PO DAILY Cranberry (Vaccinium Macrocarp (Cranberry) 450 Mg Tab 450 MG PO DAILY Donepezil Hydrochloride (Donepezil Hcl) 5 Mg Tab 5 MG PO DAILY Insulin Isophan/Regular (Novolin 70/30) Susp 17 UNITS SC QAM, 0 Refills Insulin Isophan/Regular (Novolin 70/30) Susp 10 SC QPM, 0 Refills Lovastatin (Mevacor) 10 Mg Tab 10 MG PO QPM, TAB Memantine Hcl (Namenda) 10 Mg Tab 10 MG PO BID, TAB Methenamine Hippurate (Methenamine Hippurate) 1 Gm Tab 1 GM PO BID, #60 Multiple Vitamin (Multi Vitamin Daily) 1 Tab Tab 1 TAB PO DAILY Mupirocin 2% (Bactroban 2%) 30 Gm Cr 1 APPLN EXT UD, TUBE Propylene Glycol-Glycerin (Soothe) 1 Colton Colton 1-2 DROPS OPB DAILY Discontinued Medications: Lisinopril/Hctz (Zestoretic 20MG/25MG) Tab 0.5 TAB PO QAM, TAB Trazodone Hcl (Trazodone) 100 Mg Tab 100 MG PO DHS, 0 Refills Discharge Exam Constitutional: no chills, aches, sweats or fever Respiratory: no sob,cough, sputum, or wheezing Cardiac: no chest pain, palpitations, edema, orthopnea or lightheadedness GI: no abdominal pain, nausea, vomiting, diarrhea or constipation : no dysuria or hesitancy Extremities: no joint pain or weakness Skin: no rash Physical Exam: General Appearance: WD/WN, no apparent distress Eyes: normal inspection Respiratory/Chest: chest non-tender, lungs clear, normal breath sounds, no respiratory distress, + pertinent finding (crackles left base) Cardiovascular: regular rate, rhythm, no edema, normal peripheral pulses Abdomen / GI: normal bowel sounds, non tender, soft Neurologic/Psychiatric: alert, normal mood/affect, oriented x 3 Skin: normal color, warm/dry (Maranda Beltran ., SHRADDHA) Hospital Course 86yo female here with generalized abdominal pain, n/v SBO - likely due to adhesions. Has a ventral hernia on CT but this does not appear to be the cause of the obstruction. - NG tube out, low fiber diet Transverse colon mass - she has a microcytic anemia, has had change in bowel habits, and recent anorexia. - Colonoscopy 04/23 shows 5 cm obstructing mass of the transverse colon - Surgery plans to remove mass, sbo, and hernia. Risks and benefits reviewed at length with daughters. Surgery pushed back for 3 weeks as patient developed pneumonia Pneumonia - developed fever afternoon 04/23, chest x-ray with pleural effusion and left perihilar airspace opacity - Zosyn started evening 04/23 - afebrile for >24 hours, no dyspnea or increased O2 needs - may have a component of fluid overload given how quickly CXR changed from 1100 to 1600 04/23, respiratory status was stable so cut fluid but held off on lasix ?Pulmonary nodule - seen on first CXR 04/23 - order placed to follow with pulmonary nodule program ventral hernia - see above hypokalemia - repleated hypomagnesemia - repleated hyponatremia - likely hypotonic hyponatremia from volume depletion. dementia - noted; holding home meds (aricept, etc) microcytic anemia - possibly due to combination of low Fe intake and malignant mass in colon - Hgb stable >9.0 T2DM - controlled HTN - controlled frequent burping/hiccups at home - CT with thickening of esophagus - this is c/ w GERD and esophagitis. Cont IV H2 stanford DVT proph held for colonoscopy/surgery Full code Total Time Spent: Less than 30 minutes This includes examination of the patient, discharge planning, medication reconciliation, and communication with other providers. (Maranda Beltran ., SHRADDHA) [employer] Physician Supervision Note: I interviewed and examined the patient. Discussed with Maranda Beltran NP and agree with findings and plan as documented in the note. 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 The patient then will be evaluated once cleared by her PCP, by Dr. Dong and schedule surgery. After surgery and recovery the patient will see oncology of her choice to have therapy recommended this will also enable us to get a intraoperative pathological specimen and she will need to have staging evaluation particularly looking at CT of her chest as there was the concern about a pulmonary nodule on her most recent chest x-ray which could be metastatic disease. This was relayed to the family at length during a 40 minute bedside conversation the day of her discharge Documented By: Thiago Sanchez (Thiago Sanchez M.D.) Discharge Instructions Please refer to the electronic Patient Visit Report (Discharge Instructions) for additional information. (Maranda Beltran CRNP) Follow-Up [facility] at [facility] with Dr. Davis on SaturdayMay 01 at 10:00 am. follow-up with Dr. Dong in the General Surgery Office on Sunday, May 202016 at 11:00AM. (Maranda Beltran CRNP)
--- NOTE | 2017-04-25 16:18 | Surgery Progress Note ---
Surgery Progress Note Date of Service Apr 25, 2017. Subjective + feeling well, + ambulating, + pain controlled, No complaints, No nausea, No vomiting Patient doing well- planned discharge today. Objective Vital Signs: Date Time Temp Pulse Resp B/P (MAP) Pulse Ox O2 Delivery O2 Flow Rate FiO2 04/25/17 12:58 37.0 97 24 97 Room Air 04/25/17 11:37 97 Room Air 04/25/17 11:16 37.0 97 24 142/77 (98) 97 Room Air 04/25/17 08:27 37.0 89 24 142/64 (90) 96 Room Air 04/25/17 08:22 Room Air 04/24/17 23:40 Room Air 04/24/17 23:35 36.8 94 18 137/74 (95) 96 Room Air General Appearance: WD/WN, no apparent distress Abdomen: non tender, non distended, soft Laboratory Results: Results Past 24 Hours Test 04/24/17 17:14 04/24/17 21:08 04/25/17 05:32 04/25/17 08:19 Range/Units Bedside Glucose 117 124 91 70-90 mg/dl White Blood Count 11.84 4.8-10.8 K/uL Red Blood Count 3.74 4.2-5.4 M/uL Hemoglobin 9.2 12.0-16.0 g/dL Hematocrit 29.2 37-47 % Mean Corpuscular Volume 78.1 80-100 fL Mean Corpuscular Hemoglobin 24.6 25-34 pg Mean Corpuscular Hemoglobin Concent 31.5 32-36 g/dl Platelet Count 315 130-400 K/uL Mean Platelet Volume 9.1 7.4-10.4 fL Neutrophils (%) (Auto) 78.3 % Lymphocytes (%) (Auto) 11.7 % Monocytes (%) (Auto) 7.7 % Eosinophils (%) (Auto) 1.9 % Basophils (%) (Auto) 0.2 % Neutrophils # (Auto) 9.27 1.4-6.5 K/uL Lymphocytes # (Auto) 1.39 1.2-3.4 K/uL Monocytes # (Auto) 0.91 0.11-0.59 K/uL Eosinophils # (Auto) 0.23 0-0.5 K/uL Basophils # (Auto) 0.02 0-0.2 K/uL RDW Standard Deviation 45.8 36.4-46.3 fL RDW Coefficient of Variation 15.9 11.5-14.5 % Immature Granulocyte % (Auto) 0.2 % Immature Granulocyte # (Auto) 0.02 0.00-0.02 K/uL Sodium Level 135 136-145 mmol/L Potassium Level 3.4 3.5-5.1 mmol/L Chloride Level 103 98-107 mmol/L Carbon Dioxide Level 24 21-32 mmol/L Anion Gap 8.0 3-11 mmol/L Blood Urea Nitrogen 5 7-18 mg/dl Creatinine 0.64 0.60-1.20 mg/dl Est Creatinine Clear Calc Drug Dose 54.7 ml/min Estimated GFR () 92.3 Estimated GFR (Non- 79.7 BUN/Creatinine Ratio 7.2 10-20 Random Glucose 93 70-99 mg/dl Calcium Level 7.7 8.5-10.1 mg/dl Assessment & Plan 04/25/2017- 86-year-old female with Partial SBO, Ventral Hernia, and Transverse Colon Mass Was able to see patient prior to discharge- patient doing well, no new concerns. Patient tolerating diet. Denies nausea or vomiting, Denies abdominal pain. Colon resection was cancelled yesterday due to fever, elevated WBC, and Pneumonia on CXR. Patient scheduled to see Dr. Dong in the office on 05/20/2017. 86-year-old female with Partial SBO, Ventral Hernia, Transverse Colon Mass Seen with Dr. Dong Reviewed pt's KUB from 04/21/2017. Patient improving. NG tube fell out yesterday- patient denies nausea or vomiting. +BM (loose) Will advance diet today. Patient reports that she is hungry. Dr. Dong spoke with Dr. Acevedo- patient in need of colonoscopy- consult GI to see if it can be done while patient is inpatient. 86-year-old female with Partial SBO, Ventral Hernia, Transverse Colon Mass Seen with Dr. Dong Reviewed pt's KUB from 04/21/2017. Patient improving. NG tube fell out yesterday- patient denies nausea or vomiting. +BM (loose) Will advance diet today. Patient reports that she is hungry. Dr. Dong spoke with Dr. Acevedo- patient in need of colonoscopy- consult GI to see if it can be done while patient is inpatient.
== END 2017-04-25 14:20 | disposition home or self-care (01) | DRG 388 ==
LOC: EDBD 15:28 → C.EDB 15:33 → C.MSW 20:21 → ENRESERV 20:33 → EDBEDREQ 20:45
PROVIDERS: ADMIT Hospitalist; ATTEND Internal Medicine
PROC: 0DBL8ZX Excision of Transverse Colon, Via Natural or Artificial Opening Endoscopic, Diagnostic (ICD-10-PCS; principal; 2017-04-23 09:16)
DX: K56.51 Intestinal adhesions [bands], with partial obstruction (principal); J69.0 Pneumonitis due to inhalation of food and vomit; A41.9 Sepsis, unspecified organism; R65.20 Severe sepsis without septic shock; J96.01 Acute respiratory failure with hypoxia; C18.4 Malignant neoplasm of transverse colon; N39.0 Urinary tract infection, site not specified; E87.1 Hypo-osmolality and hyponatremia; E87.6 Hypokalemia; E83.42 Hypomagnesemia; Y95 Nosocomial condition; K43.9 Ventral hernia without obstruction or gangrene; D50.9 Iron deficiency anemia, unspecified; R91.1 Solitary pulmonary nodule; F03.90 Unspecified dementia, unspecified severity, without behavioral disturbance, psychotic disturbance, mood disturbance, and anxiety; E11.9 Type 2 diabetes mellitus without complications; I10 Essential (primary) hypertension; K21.0 Gastro-esophageal reflux disease with esophagitis; F32.9 Major depressive disorder, single episode, unspecified; E78.5 Hyperlipidemia, unspecified; Z87.440 Personal history of urinary (tract) infections; Z90.49 Acquired absence of other specified parts of digestive tract; Z90.710 Acquired absence of both cervix and uterus; Z79.4 Long term (current) use of insulin; Z79.82 Long term (current) use of aspirin; Z79.899 Other long term (current) drug therapy; Z88.2 Allergy status to sulfonamides

== ENCOUNTER 2017-04-26 11:39 | Emergency (ER) | payer OTHER ==
[~2017-04-26] VITALS: Ht 160 cm; Wt 67.8 kg
[~2017-04-26 11:39] MED LIST changes: +AMOX875T PO; -ARC5 PO; +ASCO1CAP3 PO; -ASPEC81 PO; +ASPI-435 PO; +BCTCR/30 EXT; +CRAN1TAB3 PO; -CRANPOW PO; +DONE1TAB25 PO; +FAMO1TAB47 PO; -GUAI100S75 PO; -LISI-788 PO; -TRAZ100T29 PO; -VITAMIN C PO
[2017-04-26 11:52] VITALS: TEMP 36.8; Ht 160 cm; Wt 67.8 kg
[2017-04-26] MEDS ORDERED: PANTOprazole SOD 40 MG TAB PO STA (13:03)
[2017-04-26] MEDS ORDERED: ONDANSETRON 4MG OD TAB PO ONE (13:15)
--- NOTE | 2017-04-26 13:41 | Pharmacy Progress Note ---
ED Pharmacist Progress Note Date of Service: Apr 26, 2017. Was consulted to evaluate patients insulin regimen given hypoglycemic episode. Patient is very aggressively controlled for ehr age on novolin 70/30 17 units in the morning 10 in the evening. She also recently was diagnosed with a colonic mass and has not been eating. The patient is a resident at [facility] and I called and spoke to Brianna who manages the patients insulin. She explained that the nurse accidentally gave the morning insulin today with a sugar og 87 even though the patient was not eating. I discussed with her the possibility of a less aggressive regimen, possibly a once daily lantus, given the patient's age and new healthcare developments. She will consider all of this and follow up with nursing to ensure this error would not happen again.
--- NOTE | 2017-04-26 13:42 | DIAGNOSTIC IMAGING REPORT ---
AP CHEST WITH ABDOMINAL SERIES CLINICAL HISTORY: Nausea. FINDINGS: An AP upright chest radiograph is compared to study dated 04/23/2017. The examination is degraded by patient rotation. The cardiomediastinal silhouette is unremarkable. There is atherosclerotic calcification of the thoracic aorta. Chronic interstitial thickening is similar to previous. There is a left pleural effusion with left basilar consolidation. Airspace consolidation is also seen in the left upper lobe. No pneumothorax is seen. The skeletal structures are osteopenic. A right shoulder arthroplasty is in place. Supine and decubitus abdominal radiographs are compared to study dated 04/20/2017. Cholecystectomy clips are noted in the right upper quadrant. Air-fluid levels are noted on the decubitus view. There is no radiographic evidence of high-grade bowel obstruction. No evidence of intraperitoneal free air is seen. There are no abnormal abdominal calcifications. Phlebolith are seen in the pelvis. There is atherosclerotic calcification of the abdominal aorta. Sacral spondylosis and scoliosis are identified. The lumbosacral spine and bony pelvis appear intact. IMPRESSION: 1. There is a left pleural effusion with left basilar consolidation. Airspace consolidation is also seen in the left upper lobe. Correlate clinically for evidence of pneumonia. 2. There is no radiographic evidence of high-grade bowel obstruction, as gas is present within the colon. Air-fluid levels are noted on the decubitus view, this could represent ileus, low-grade/partial obstruction, and/or an enteritis. Clinical correlation will be required. 3. No intraperitoneal free air is seen. Electronically signed by: Stephan Geller M.D. 04/26/2017 1:41 PM Dictated Date/Time: 04/26/2017 1:37 PM
--- NOTE | 2017-04-26 14:27 | EMERGENCY ROOM VISIT NOTE ---
History Report prepared by Eloy: Pablo Castillo Under the Supervision of: Dr. Ernie Salgado D.O. First contact with patient: 11:49 Stated Complaint: [id number] History of Present Illness The patient is a 86 year old female who presents to the Emergency Room with complaints of improving hypoglycemia beginning just prior to arrival. Her insulin dropped to as low as 40 today. Her blood sugar was found to be 60 upon arrival of EMS. The patient's blood sugar was found to be in the 80's upon arrival to the ED. She was recently discharged from the hospital after a SBO. She states that she was recently found to have a cancerous mass of the large intestine earlier this week. The patient is in the process of scheduling surgery. She was placed on a certain diet due to the colon cancer, and states that she has not been eating much recently. She states that she takes insulin for her diabetes, but nothing else. The patient currently complains of fatigue. Source of History: patient Onset: Just prior to arrival Symptom Intensity: BSG of 40 at the lowest Quality: other (hypoglycemia) Timing: other (improving) Associated Symptoms: + fatigue Review of Systems See HPI for pertinent positives & negatives. A total of 10 systems reviewed and were otherwise negative. Past Medical & Surgical Medical Problems: (1) Diabetes (2) SBO (small bowel obstruction) Family History No pertinent family history Social History Smoking Status: Never Smoker Alcohol Use: none Drug Use: none Housing Status: lives alone Occupation Status: retired Current/Historical Medications Scheduled Amoxicillin & Pot Clavulanate (Augmentin 875-125 mg), 875 MG PO BID Ascorbic Acid (Vitamin C), 250 MG PO DAILY Aspirin (Aspirin 81), 81 MG PO DAILY Cranberry (Vaccinium Macrocarp (Cranberry), 450 MG PO DAILY Donepezil Hydrochloride (Donepezil Hcl), 5 MG PO DAILY Famotidine (Famotidine), 20 MG PO Q12H Insulin Isophan/Regular (Novolin 70/30), 17 UNITS SC QAM Insulin Isophan/Regular (Novolin 70/30), 10 SC QPM Lovastatin (Mevacor), 10 MG PO QPM Memantine Hcl (Namenda), 10 MG PO BID Methenamine Hippurate (Methenamine Hippurate), 1 GM PO BID Multiple Vitamin (Multi Vitamin Daily), 1 TAB PO DAILY Mupirocin 2% (Bactroban 2%), 1 APPLN EXT UD Propylene Glycol-Glycerin (Soothe), 1-2 DROPS OPB DAILY Scheduled PRN Acetaminophen (Tylenol Extra Strength), 1,000 MG PO DAILY PRN for PRN Allergies Coded Allergies: Clotrimazole (Unverified Allergy, Intermediate, ., 04/26/17) Sulfa Antibiotics (Verified Allergy, Unknown, HIVES, 04/26/17) Physical Exam Vital Signs Date Time Temp Pulse Resp B/P (MAP) Pulse Ox O2 Delivery O2 Flow Rate FiO2 04/26/17 14:43 97 18 129/73 98 Room Air 04/26/17 13:11 78 16 146/68 98 Room Air 04/26/17 11:52 36.8 106 18 139/78 96 Room Air Physical Exam GENERAL: Patient is awake, alert, and in no acute distress. Patient is resting comfortably and showing no signs of anxiety EYES: The conjunctivae are clear. The pupils are round and reactive. EARS, NOSE, MOUTH AND THROAT: The nose is without any evidence of any deformity. Mucous membranes are moist tongue is midline NECK: The neck is nontender and supple. RESPIRATORY: Normal respiratory effort is noted there is no evidence of wheezing rhonchi or rales CARDIOVASCULAR: Regular rate and rhythm noted there no murmurs rubs or gallops normal S1 normal S2 GASTROINTESTINAL: The abdomen is soft. Bowel sounds are present in all quadrants. Abdomen is nontender MUSCULOSKELETAL/EXTREMITIES: There is no evidence of gross deformity full range of motion is noted in the hips and shoulders SKIN: There is no obvious evidence of any rash. There are no petechiae, pallor or cyanosis noted. Trace pedal edema bilaterally. NEUROLOGIC: Patient is awake alert and oriented x3, strength is symmetric. Medical Decision & Procedures ER Provider Diagnostic Interpretation: X-ray results as stated below per interpretation by me and the radiologist. AP CHEST WITH ABDOMINAL SERIES FINDINGS: An AP upright chest radiograph is compared to study dated 04/23/2017. The examination is degraded by patient rotation. The cardiomediastinal silhouette is unremarkable. There is atherosclerotic calcification of the thoracic aorta. Chronic interstitial thickening is similar to previous. There is a left pleural effusion with left basilar consolidation. Airspace consolidation is also seen in the left upper lobe. No pneumothorax is seen. The skeletal structures are osteopenic. A right shoulder arthroplasty is in place. Supine and decubitus abdominal radiographs are compared to study dated 04/20/2017. Cholecystectomy clips are noted in the right upper quadrant. Air-fluid levels are noted on the decubitus view. There is no radiographic evidence of high-grade bowel obstruction. No evidence of intraperitoneal free air is seen. There are no abnormal abdominal calcifications. Phlebolith are seen in the pelvis. There is atherosclerotic calcification of the abdominal aorta. Sacral spondylosis and scoliosis are identified. The lumbosacral spine and bony pelvis appear intact. IMPRESSION: 1. There is a left pleural effusion with left basilar consolidation. Airspace consolidation is also seen in the left upper lobe. Correlate clinically for evidence of pneumonia. 2. There is no radiographic evidence of high-grade bowel obstruction, as gas is present within the colon. Air-fluid levels are noted on the decubitus view, this could represent ileus, low-grade/partial obstruction, and/or an enteritis. Clinical correlation will be required. 3. No intraperitoneal free air is seen. Electronically signed by: Stephan Geller M.D. 04/26/2017 1:41 PM Medications Administered Medications (Trade) Dose Ordered Sig/Rocio Route Start Time Stop Time Status Last Admin Dose Admin Ondansetron HCl (Zofran Odt) 4 mg ONE ONCE PO 04/26/17 13:15 04/26/17 13:16 DC 04/26/17 13:08 4 MG Pantoprazole Sodium (Protonix Tab) 40 mg NOW STAT PO 04/26/17 13:03 04/26/17 13:04 DC 04/26/17 13:08 40 MG ED Course 1150: The patient was evaluated in room B11B. A complete history and physical examination were performed. 1303: Ordered Protonix Tab 40 mg PO. 1315: Ordered Zofran Odt 4 mg PO. 1420: Upon reevaluation, the patient is resting comfortably. I discussed the results and treatment plan with her. She verbalized agreement of the treatment plan. The patient was discharged home. Medical Decision Differential diagnosis: Etiologies such as metabolic, infection, hypo/hyperglycemia, electrolyte abnormalities, cardiac sources, intracerebral event, toxicologic, neurologic, as well as others were entertained. Nursing notes reviewed. Additional history is obtained from the patient's family members. The patient is an 86-year-old female who presented to the emergency apartment for an evaluation of low blood sugar. The patient has had well-controlled diabetes for quite some time. Recently she was seen in our facility and diagnosed with a bowel obstruction. She was diagnosed with a colon mass and is scheduled for surgical intervention in the upcoming future. Her course was also complicated by aspiration pneumonia recently. The patient presents to the emergency department today feeling much better after dextrose supplementation. I do feel at this time that likely the patient's hypoglycemia is related to her decreased by mouth intake because of this recent diagnosis. I discussed her case with the emergency Department pharmacist and we made recommendations for changes to her insulin and we also communicated this with the patient's outpatient personal mcc. Her family members were concerned because she has some abdominal distention. Her physical exam was not consistent with an acute surgical abdomen. The family members asked me to get x-rays of her abdomen and there does appear to be some signs of ileus but no definite signs of bowel obstruction. I discussed the patient's review graphic studies with her and her family members. She also had some abnormalities on the chest x-ray but I do not feel this is clinically the case at this time the patient does not a cough fever or hypoxia. I do recommend that she have a repeat x-ray of her abdomen in the next few days unless her symptoms completely resolved. Otherwise she was encouraged to return to the emergency department if she develops signs of bowel obstruction again such as abdominal pain severe distention vomiting or if need arises. Medication Reconcilliation Current Medication List: was personally reviewed by me Blood Pressure Screening Patient's blood pressure: Normal blood pressure Blood pressure disposition: Did not require urgent referral Impression Primary Impression: Hypoglycemia Scribe Attestation The scribe's documentation has been prepared under my direction and personally reviewed by me in its entirety. I confirm that the note above accurately reflects all work, treatment, procedures, and medical decision making performed by me. Departure Information Dispostion Home / Self-Care Referrals CARLEE ESTEVEZ (PCP) Forms HOME CARE DOCUMENTATION FORM, IMPORTANT VISIT INFORMATION, WORK / SCHOOL INSTRUCTIONS Patient Instructions Hypoglycemia, My [facility] Additional Instructions I would recommend a change in your insulin dosage until you are back up to a full diet. Have repeat x-rays of your abdomen within the next 48 hours or sooner if you develop worsening symptoms such as severe abdominal pain vomiting or if the need arises. Drink plenty clear liquids. Return to the emergency department immediately if symptoms change worsen or the need arises.
[2017-04-26 14:43] VITALS: BP 129/73; PULSE 97; O2SAT 98
== END 2017-04-26 14:58 | disposition home or self-care (01) ==
LOC: EDBD 11:39 → C.EDB 11:40
DX: E11.649 Type 2 diabetes mellitus with hypoglycemia without coma (principal); K56.609 Unspecified intestinal obstruction, unspecified as to partial versus complete obstruction; Z79.82 Long term (current) use of aspirin; Z79.4 Long term (current) use of insulin; Z79.899 Other long term (current) drug therapy; Z88.2 Allergy status to sulfonamides; Z88.8 Allergy status to other drugs, medicaments and biological substances

== ENCOUNTER → 2017-05-17 | Outpatient (CLI) | payer OTHER ==
[~2017-05-17] MED LIST changes: -AMOX875T PO
== END | disposition home or self-care (01) ==
LOC: C.LABWYN 11:49
PROVIDERS: ATTEND Family Medicine
DX: N39.0 Urinary tract infection, site not specified (principal)

== ENCOUNTER 2017-06-06 08:29 | Inpatient (IN) | payer OTHER ==
[2017-05-29 09:44] VITALS: BMI 25.0
--- NOTE | 2017-05-29 10:35 | PAT Medication Instructions ---
Service Date May 29, 2017. Current Home Medication List Acetaminophen (Tylenol Extra Strength), 1,000 MG PO DAILY PRN for PRN Ascorbic Acid (Vitamin C), 250 MG PO QAM Aspirin (Aspirin 81), 81 MG PO QAM Cranberry (Vaccinium Macrocarp (Cranberry), 450 MG PO QAM Donepezil Hydrochloride (Donepezil Hcl), 5 MG PO HS Famotidine (Pepcid), 20 MG PO BID Insulin Glargine (Lantus), 5 UNITS INJ HS Memantine Hcl (Namenda), 10 MG PO BID Methenamine Hippurate (Methenamine Hippurate), 1 GM PO BID Multiple Vitamin (Multi Vitamin Daily), 1 TAB PO QAM Mupirocin 2% (Bactroban 2%), 1 APPLN EXT UD Propylene Glycol-Glycerin (Soothe), 1-2 DROPS OPB HS Medication Instructions For Your Scheduled Surgery - Contact your surgeon for instructions for: Aspirin (Aspirin 81), 81 MG PO QAM - Hold the following medications 24 hours prior to surgery: Mupirocin 2% (Bactroban 2%), 1 APPLN EXT UD - Hold the following medications the morning of surgery: Multiple Vitamin (Multi Vitamin Daily), 1 TAB PO QAM Cranberry (Vaccinium Macrocarp (Cranberry), 450 MG PO QAM Ascorbic Acid (Vitamin C), 250 MG PO QAM - Take the following medications the morning of surgery with a sip of water: Memantine Hcl (Namenda), 10 MG PO BID Famotidine (Pepcid), 20 MG PO BID Acetaminophen (Tylenol Extra Strength), 1,000 MG PO DAILY PRN for PRN (if needed , can be taken up to four hours before surgery) Methenamine Hippurate (Methenamine Hippurate), 1 GM PO BID - Take the following medications as scheduled the night before surgery: Propylene Glycol-Glycerin (Soothe), 1-2 DROPS OPB HS Memantine Hcl (Namenda), 10 MG PO BID Insulin Glargine (Lantus), 5 UNITS INJ HS Donepezil Hydrochloride (Donepezil Hcl), 5 MG PO HS Methenamine Hippurate (Methenamine Hippurate), 1 GM PO BID Famotidine (Pepcid), 20 MG PO BID If you have any questions please call us at [phone] or [phone] or [phone]
--- NOTE | 2017-05-29 11:44 | DIAGNOSTIC IMAGING REPORT ---
CHEST 2 VIEWS ROUTINE CLINICAL HISTORY: 86 years-old Female presenting with preadmission chest x-ray. TECHNIQUE: PA and lateral views of the chest were obtained. COMPARISON: 04/26/2017. FINDINGS: Atherosclerosis of aortic arch. Cardiac silhouette normal in size. Improved aeration of the left lung base with resolution of left pleural fluid. Resolution of left upper lung opacities. Right lung and pleural space clear. Reversed right shoulder arthroplasty. Degenerative changes of the spine. Cholecystectomy clips. IMPRESSION: 1. Improved aeration of the left lung base with resolution of left pleural effusion. 2. Resolution of left upper lung opacities. Electronically signed by: Ray Chen M.D. 05/29/2017 11:43 AM Dictated Date/Time: 05/29/2017 11:41 AM
[2017-05-29 12:00] LABS: HEMATOCRIT 28.1 % (37-47); MEAN CORPUSCULAR HEMOGLOBIN 22.2 pg (25-34); MEAN CORPUSCULAR HGB CONC 28.8 g/dl (32-36); MEAN PLATELET VOLUME 9.4 fL (7.4-10.4); PLATELET COUNT 332 K/uL (130-400); RED BLOOD COUNT 3.65 M/uL (4.2-5.4); WHITE BLOOD COUNT 7.46 K/uL (4.8-10.8)
[2017-05-29 12:03] LABS: BASO % 0.4 %; BASO ABS # 0.03 K/uL (0-0.2); COMPLETE YES; EOS % 3.8 %; HYPOCHROMIA PRESENT; IG% 0.3 %; LARGE PLATELETS 1+; LYMPH % 20.9 %; LYMPH ABS # 1.56 K/uL (1.2-3.4); MONO % 10.1 %; NEUT % 64.5 %
[2017-05-29 12:24] LABS: BUN/CREATININE RATIO 11.9 (10-20); CALCIUM 8.3 mg/dl (8.5-10.1); CREATININE 0.7 mg/dl (0.60-1.20); POTASSIUM 4.2 mmol/L (3.5-5.1)
[~2017-06-06] VITALS: Ht 157.5 cm; Wt 62.1 kg
[2017-06-06] VITALS (8 sets, daily range): BP systolic 109–162; BP diastolic 61–79; PULSE 87–102; TEMP 36.3–37; O2SAT 98–100; Ht 157.5 cm; Wt 62.1 kg
[~2017-06-06 08:29] MED LIST changes: +CEFAZOLIN 2000MG IV PUSH 10 ML IV SCH; -FAMO1TAB47 PO; +FAMO20TA11 PO; +HEPARIN SOD 5000 UNIT/0.5 ML CARP SQ SCH; +INSU100I23 INJ; -INSU70IN2 SC; +LACTATED RINGER'S 1000ML 1,000 ML IV SCH; -LOVA10TA3 PO
[2017-06-06] MEDS ORDERED: EpHEDrine SULFATE INJ 50 MG/ML AMP IV PRN (09:45)
[2017-06-06] MEDS ORDERED: ATROPINE SULFATE 0.1 MG/ML 5ML SYR IV PRN (09:45)
[2017-06-06] MEDS ORDERED: FENTANYL CITRATE INJ 50 MCG/1 ML 2 ML VIAL IV PRN (09:45)
[2017-06-06] MEDS ORDERED: ONDANSETRON INJ 2 MG/ML 2 ML VIAL IV PRN ×2 (09:45→13:30)
[2017-06-06] MEDS ORDERED: HYDROmorphone INJ 1 MG/ML SYR IV PRN (09:45)
[2017-06-06] MEDS ORDERED: ROCURONIUM BROMIDE 10 MG/ML 5 ML VIAL IV ONE (09:58)
[2017-06-06] MEDS ORDERED: PROPOFOL IV EMULSION 10 MG/ML 20 ML VIAL IV ONE (09:58)
[2017-06-06] MEDS ORDERED: LIDOCAINE HCL 2% 2 ML VIAL (20MG/ML) ONE (09:58)
[2017-06-06] MEDS ORDERED: FENTANYL CITRATE INJ 50 MCG/1 ML 2 ML VIAL ONE ×3 (09:59→13:10)
[2017-06-06 10:05] LABS: HEMATOCRIT 30.9 % (37-47); MEAN CELL VOLUME 75.2 fL (80-100); MEAN CORPUSCULAR HEMOGLOBIN 21.9 pg (25-34); MEAN CORPUSCULAR HGB CONC 29.1 g/dl (32-36); PLATELET COUNT 358 K/uL (130-400); RED BLOOD COUNT 4.11 M/uL (4.2-5.4); WHITE BLOOD COUNT 8.29 K/uL (4.8-10.8)
--- NOTE | 2017-06-06 10:39 | History & Physical Bridge Note ---
H&P Re-Evaluation Bridge Note: I have examined the patient, reviewed the History & Physical and in the interval since the performance of the History & Physical I have noted the following changes of clinical significance: No changes noted
[2017-06-06] MEDS ORDERED: BUPIVACAINE/EPINEPHRINE 0.5% MPF 1:200,000 30 ML VIAL ONE (11:13)
[2017-06-06] MEDS ORDERED: ONDANSETRON INJ 2 MG/ML 2 ML VIAL ONE ×2 (12:08→12:58)
[2017-06-06] MEDS ORDERED: GLYCOPYRROLATE INJ 0.2 MG/ML VIAL ONE (12:58)
[2017-06-06] MEDS ORDERED: NEOSTIGMINE METHYLSULFATE 5 MG/5 ML SYR ONE (12:58)
[2017-06-06] MEDS ORDERED: LABETALOL HCL IV 5 MG/ML 20ML IV ONE (13:17)
[2017-06-06] MEDS ORDERED: IBUPROFEN 600 MG TAB PO PRN (13:30)
[2017-06-06] MEDS ORDERED: HYDROCODONE/ACETAMOPHEN 5/325MG TAB PO PRN ×2 (13:30)
[2017-06-06] MEDS ORDERED: MoRPHine SULFATE 4 MG/ML 1 ML CARP\\VIAL IV PRN (13:30)
[2017-06-06] MEDS ORDERED: MoRPHine SULFATE 2 MG/ML CARP IV PRN (13:30)
--- NOTE | 2017-06-06 14:00 | Anesthesiology Progress Note ---
Anesthesia Post Op Note Date & Time Jun 06, 2017 at 14:00 Vital Signs Pain Intensity: 0 Vital Signs Past 12 Hours Date Time Temp Pulse Resp B/P (MAP) Pulse Ox O2 Delivery O2 Flow Rate FiO2 06/06/17 13:50 93 16 172/90 100 Oxymask 10 06/06/17 13:40 94 16 182/91 100 Oxymask 10 06/06/17 13:30 36.6 94 16 176/88 100 Oxymask 10 06/06/17 08:58 36.6 102 18 162/75 98 Room Air Notes Mental Status: alert / awake / arousable, participated in evaluation Pt Amnestic to Procedure: Yes Nausea / Vomiting: adequately controlled Pain: adequately controlled Airway Patency, RR, SpO2: stable & adequate BP & HR: stable & adequate Hydration State: stable & adequate Anesthetic Complications: no major complications apparent
--- NOTE | 2017-06-06 14:10 | [facility] Operative Report ---
Operative Report Operative Date Jun 06, 2017. Pre-Operative Diagnosis Colon Cancer Incisional Hernia Post-Operative Diagnosis same Procedure(s) Performed Open Extended Partial Colectomy, Extensive Enterolysis; Repair of Incisional Hernia Surgeon Dr. Dong Relay Man Surgeon(s) Justin Booth Findings large transverse colon mass;incisional hernia;adhesions Specimens Terminal Ilium, Right colon, portion of Transverse colon Anesthesia get Complication(s) None Disposition Recovery Room / PACU Description of Procedure After informed consent was obtained the patient was taken to the operating room and placed in the supine position. After successful intubation a Silva was placed as well as an orogastric tube. The abdomen was then sterilely prepped and draped in usual fashion. A midline incision through her old scar was made with a 10 blade scalpel and carried down around the umbilicus. Electrocautery was used to extend this through the soft tissue down to the midline. I was able to enter the midline without any difficulty. There was a mid incisional hernia I was able to take down the hernia sac. It did have some omentum and preperitoneal fat incarcerated within it. We took down the sac as well as the omentum and discarded it. Once I had the incision open to both poles we then used the Bookwalter retractor to help with exposure throughout the case. I Began by inspecting the entire abdomen. The transverse colon mass was obvious and was on the hepatic flexure side of the middle colic vessels. It was stuck to the anterior abdominal wall and I had to take down some fascia to detach it from the abdominal wall. Liver felt clean the peritoneal surfaces did not show any sign of any metastatic disease. There were a lot of adhesions within the abdomen primarily involving small bowel. I began by taking all this down using finger fractionation as well as sharp scissor lysis. The worst of the adhesions were in the right lower quadrant which is consistent with her recent hospitalization for small bowel obstruction. Eventually I was able to free up all the small bowel. My attention then turned to the colon mass. I freed up the transverse colon from the inferior aspect of the stomach and when I evaluated it the mass itself was on the hepatic flexure side of the middle colic vessels. I was able to create a small window in the mesentery of the transverse colon and transected it distal to the mass but proximal to the middle colic vessels using a LUIS ARMANDO 60 mm maya stapler. I then started at the cecum and freed up the retroperitoneal reflection using small amounts electrocautery as well as blunt dissection. The tissues were relatively weak and easy to finger fractionate. I used scissors and electrocautery to free up the hepatic flexure and eventually had the entire cecum appendix terminal ileum right colon and transverse colon completely freed up. After I did this I was then able to transect the terminal ileum. Because of the blood supply would have to perform an extended right hemicolectomy. A LUIS ARMANDO maya cartridge was also used to transect the terminal ileum several inches proximal to the cecum. I then used the LigaSure device to take down the mesentery of the right and transverse colon. I Was able to pass off which would turner splitter machine operator to be the terminal ileum cecum right colon and transverse colon and one piece. There was adequate hemostasis. We then performed a [id number] small bowel to transverse colon anastomosis using LUIS ARMANDO maya stapler. A TA 60 device was used to close the common enterotomy. I used 3-0 silk placed a crotch stitch as well as to oversew all of the staple lines. 0 Vicryl was used to close the mesenteric defect. The anastomosis was widely patent. There was no evidence of any ischemia. I did thoroughly irrigate the entire abdomen there was adequate hemostasis at the end of the procedure. No other gross abnormalities were identified. The fascia was then closed using #1 PDS starting at either pole running them towards the midline and securing them together. I incorporated the incisional hernia with this closure. We then irrigated the soft tissue and closed the skin using skin cande. A silver dressing was applied.The patient was extubated and transferred to recovery in stable condition. My physician's trust operations assistant was present throughout the entire case. He helped with the prep as well as retraction throughout the entire case. He helped with the stapling procedures as well as with closure at the end of the case and placement of the abdominal dressings I attest to the content of the Intraoperative Record and any orders documented therein. Any exceptions are noted below.
[2017-06-06 16:25] LABS: INR 1.1 (0.9-1.1); PROTHROMBIN TIME (PATIENT) 11.2 SECONDS (9.0-12.0)
[2017-06-06] MEDS ORDERED: NURSING VERBAL MED ORDER ONE ×3 (18:15→20:30)
[2017-06-06] MEDS: LACTATED RINGER'S 1000ML 1,000 ML IV SCH (18:25)
[2017-06-06] MEDS: ACETAMINOPHEN IV 1,000 MG in EMPTY BAG 0 ML IV SCH ×2 (18:25→23:50)
[2017-06-06] MEDS: CEFAZOLIN IV 2,000 MG in SYRINGE 0 ML IV SCH (18:26)
[2017-06-06] MEDS ORDERED: INSDGI SC (19:33)
[2017-06-06] MEDS ORDERED: MVC20 PO (19:33)
[2017-06-06] MEDS ORDERED: GLUCOSE 40% GEL 15 GM TUBE PO PRN (19:45)
[2017-06-06] MEDS ORDERED: DEXTROSE 50% 50 ML SYR IV PRN (19:45)
[2017-06-06] MEDS ORDERED: GLUCOSE 10 TABS/TUBE PO PRN (19:45)
[2017-06-06] MEDS ORDERED: GLUCAGON FOR INJ 1 MG VIAL SQ PRN (19:45)
--- NOTE | 2017-06-06 19:48 | Medical Consult ---
Consultation Date of Consultation: Jun 06, 2017. Attending Physician: Selvin Dong D.O. Reason for Consultation: Medical management History of Present Illness This is an 86 y/o female with a history of colon cancer, HTN, HLD, DM II, dementia, anemia, and GERD who presents s/p open partial colectomy, enterolysis and incisional hernia repair with Dr. Dong on 06/06 for medical management. The patient complains of some soreness in her abdomen but is otherwise feeling well. She has not yet eaten, passed gas or had a bowel movement postoperatively. Silva catheter is in place and is draining urine. The patient denies fevers, chills, sweats, chest pain, palpitations, claudication, cough, wheezing, shortness of breath, nausea, vomiting, dysuria, hematuria, urinary retention, paralysis, weakness, acute numbness and tingling. Past Medical/Surgical History Medical Problems: (1) Altered mental status Status: resolved (2) Anemia Status: Acute (3) Colonic mass Status: Acute (4) Hypoglycemia Status: Acute (5) Hypokalemia Status: Acute (6) Hyponatremia Status: Acute (7) Ventral hernia Status: Acute Colon cancer HTN HLD DM II Dementia GERD Family History Breast cancer Colon cancer Myocardial infarction Stroke Social History Smoking Status: Never Smoker Smokeless Tobacco Use: No Alcohol Use: none Drug Use: none Marital Status: Housing Status: assisted living ([facility]) Occupation Status: retired Allergies Coded Allergies: Clotrimazole (Unverified Allergy, Intermediate, hives, 06/06/17) Sulfa Antibiotics (Verified Allergy, Unknown, HIVES, 06/06/17) Current Inpatient Medications Current Inpatient Medications Medications (Trade) Dose Ordered Sig/Rocio Route Start Time Stop Time Status Last Admin Dose Admin Lactated Ringer's 1,000 ml @ 15 mls/hr Q24H IV 06/06/17 06:00 06/07/17 05:59 Lactated Ringer's 1,000 ml @ 100 mls/hr Q10H IV 06/06/17 13:27 07/06/17 13:26 06/06/17 18:25 100 MLS/HR Acetaminophen/ Hydrocodone Bitart ([place] 5/325 Tab) 1 tab Q4H PRN PO 06/06/17 13:30 06/20/17 13:29 Morphine Sulfate (MoRPHine SULFATE INJ) 2 mg Q3H PRN IV 06/06/17 13:30 06/20/17 13:29 Acetaminophen/ Hydrocodone Bitart ([place] 5/325 Tab) 2 tab Q4H PRN PO 06/06/17 13:30 06/20/17 13:29 Morphine Sulfate (MoRPHine SULFATE INJ) 4 mg Q3H PRN IV 06/06/17 13:30 06/20/17 13:29 Ondansetron HCl (Zofran Inj) 4 mg Q6H PRN IV 06/06/17 13:30 07/06/17 13:29 Cefazolin Sodium 2000 mg/Syringe 10 ml @ 2.5 mls/min Q8H IV 06/06/17 19:00 06/07/17 03:03 06/06/17 18:26 2.5 MLS/MIN Enoxaparin Sodium (Lovenox Inj) 30 mg QAM SQ 06/07/17 09:00 07/07/17 08:59 Acetaminophen 1000 mg/Empty Bag 100 ml @ 400 mls/hr Q8H IV 06/06/17 16:00 07/06/17 15:59 06/06/17 18:25 400 MLS/HR Donepezil HCl (Aricept Tab) 5 mg HS PO 06/06/17 21:00 07/06/17 20:59 Memantine (Namenda Tab) 10 mg BID PO 06/06/17 21:00 07/06/17 20:59 Review of Systems See HPI for pertinent positives and negatives. All other systems reviewed and negative. Physical Exam Date Time Temp Pulse Resp B/P (MAP) Pulse Ox O2 Delivery O2 Flow Rate FiO2 06/06/17 19:15 Nasal Cannula 1.0 06/06/17 17:30 36.5 98 16 129/61 (83) 99 Room Air 06/06/17 15:30 36.3 87 16 109/70 (83) 100 Nasal Cannula 2.0 06/06/17 15:00 88 16 112/69 (83) 100 Nasal Cannula 2.0 06/06/17 14:30 36.6 90 16 144/79 (100) 99 Nasal Cannula 2.0 06/06/17 14:30 Nasal Cannula 2.0 06/06/17 14:10 36.6 91 16 160/79 100 Nasal Cannula 2 06/06/17 14:00 36.6 92 16 176/75 100 Nasal Cannula 2 06/06/17 13:50 93 16 172/90 100 Oxymask 10 06/06/17 13:40 94 16 182/91 100 Oxymask 10 06/06/17 13:30 36.6 94 16 176/88 100 Oxymask 10 06/06/17 08:58 36.6 102 18 162/75 98 Room Air General appearance: Well-developed, well-nourished, no apparent distress Head: Normocephalic, atraumatic Eyes: Normal inspection, PERRL, EOMI ENT: Normal ENT inspection, hearing grossly normal, pharynx normal Neck: Supple, no JVD, trachea midline Respiratory/Chest: Lungs clear to auscultation, normal breath sounds, no respiratory distress Cardiovascular: Regular rate & rhythm, no gallop, no murmur Abdomen/GI: +Diffusely TTP. Distended. Hypoactive bowel sounds. Extremities/Musculoskeletal: Normal inspection, no calf tenderness, no pedal edema Neurological/Psych: Alert, normal mood/affect, oriented x 3 Skin: Normal color, warm/dry, no rash Laboratory Results Last 24 Hours Test 06/06/17 08:49 06/06/17 09:01 06/06/17 14:24 06/06/17 16:07 Bedside Glucose 173 mg/dl 211 mg/dl White Blood Count 8.29 K/uL Red Blood Count 4.11 M/uL Hemoglobin 9.0 g/dL Hematocrit 30.9 % Mean Corpuscular Volume 75.2 fL Mean Corpuscular Hemoglobin 21.9 pg Mean Corpuscular Hemoglobin Concent 29.1 g/dl RDW Standard Deviation 42.1 fL RDW Coefficient of Variation 15.4 % Platelet Count 358 K/uL Mean Platelet Volume 10.0 fL Prothrombin Time 11.2 SECONDS Prothromb Time International Ratio 1.1 Activated Partial Thromboplast Time 25.8 SECONDS Partial Thromboplastin Ratio 1.0 Assessment & Plan 86 y/o female with a history of colon cancer, HTN, HLD, DM II, dementia, anemia , and GERD who presents s/p open partial colectomy, enterolysis and incisional hernia repair with Dr. Dong on 06/06 for medical management. S/p open partial colectomy, enterolysis, incisional hernia repair; colon cancer- -POD #0 -Terminal ileum, right colon and part of transverse colon removed in setting of large transverse colon mass and colon cancer -Pain management, DVT prophylaxis, and PT/OT as per primary team -AVSS HTN, HLD--stable -Continue lovastatin 10 mg PO hs -BP stable. Previously on lisinopril/HCTZ but this was stopped last admission DM II--last HgbA1c checked 11/22/16 was 6.1 -Continue Lantus 5 units SC qpm -Insulin sliding scale -Check BSGs q ac and qhs -Recheck HgbA1c in am Dementia--currently alert and oriented x 3 -Continue Aricept 5 mg PO qd and Namenda 10 mg PO BID Anemia--stable -Baseline hgb 9-10 -Unknown etiology but microcytic and presumably [place] GERD -Continue Pepcid 20 mg PO BID Thank you for this consultation. We will continue to follow.
[2017-06-06] MEDS ORDERED: CHLORASEPTIC 1.4% SOLN 180 ML BTL MT PRN (20:30)
[2017-06-06 20:49] LABS: HEMATOCRIT 28.2 % (37-47); MEAN CELL VOLUME 75.4 fL (80-100); MEAN CORPUSCULAR HEMOGLOBIN 22.5 pg (25-34); MEAN CORPUSCULAR HGB CONC 29.8 g/dl (32-36); PLATELET COUNT 375 K/uL (130-400); RED BLOOD COUNT 3.74 M/uL (4.2-5.4); WHITE BLOOD COUNT 12.83 K/uL (4.8-10.8)
[2017-06-06] MEDS: TRAMADOL HCL 50 MG TAB PO PRN (20:51)
[2017-06-06] MEDS: DONEPEZIL HCL 5 MG TAB PO SCH (20:52)
[2017-06-06] MEDS: MEMANTINE 10 MG TAB PO SCH (20:52)
[2017-06-06] MEDS: METHENAMINE HIPPURATE 1 GM TAB PO SCH (20:53)
[2017-06-06] MEDS: FAMOTIDINE 20 MG TAB PO SCH (20:54)
[2017-06-06] MEDS: LOVASTATIN 20 MG TAB PO SCH (20:54)
[2017-06-06] MEDS ORDERED: INSULIN HUMAN REGULAR SC SCH (21:00)
[2017-06-06] MEDS ORDERED: INSULIN ASPART 100 UNITS/ML 3 ML PEN SC SCH (21:00)
[2017-06-06] MEDS ORDERED: MEMANTINE 10 MG TAB PO SCH (21:00)
[2017-06-06 21:02] LABS: BUN/CREATININE RATIO 10.7 (10-20); CALCIUM 8.1 mg/dl (8.5-10.1); CREATININE 0.92 mg/dl (0.60-1.20); POTASSIUM 4.2 mmol/L (3.5-5.1)
[2017-06-06] MEDS: INSULIN GLARGINE SOLOSTAR 100 UNITS/ML 3 ML PEN SC SCH (21:10)
[2017-06-07] VITALS (9 sets, daily range): BP systolic 129–148; BP diastolic 54–85; PULSE 96–107; TEMP 36.5–37.2; O2SAT 94–97
[2017-06-07] MEDS ORDERED: INSULIN HUMAN REGULAR SC SCH
[2017-06-07] MEDS: INSULIN ASPART 100 UNITS/ML 3 ML PEN SC SCH ×5 (00:46→22:40)
[2017-06-07] MEDS: CEFAZOLIN IV 2,000 MG in SYRINGE 0 ML IV SCH (04:05)
[2017-06-07] MEDS: LACTATED RINGER'S 1000ML 1,000 ML IV SCH ×2 (04:50→15:37)
[2017-06-07 07:03] LABS: BASO % 0.1 %; BASO ABS # 0.01 K/uL (0-0.2); EOS % 0.1 %; HEMATOCRIT 24.7 % (37-47); IG% 0.2 %; LYMPH % 16.6 %; LYMPH ABS # 1.62 K/uL (1.2-3.4); MEAN CELL VOLUME 75.1 fL (80-100); MEAN CORPUSCULAR HEMOGLOBIN 21.9 pg (25-34); MEAN CORPUSCULAR HGB CONC 29.1 g/dl (32-36); MEAN PLATELET VOLUME 9.1 fL (7.4-10.4); MONO % 8.9 %; NEUT % 74.1 %; PLATELET COUNT 294 K/uL (130-400); RED BLOOD COUNT 3.29 M/uL (4.2-5.4); WHITE BLOOD COUNT 9.76 K/uL (4.8-10.8)
[2017-06-07 07:09] LABS: INR 1.1 (0.9-1.1); PROTHROMBIN TIME (PATIENT) 11.2 SECONDS (9.0-12.0)
[2017-06-07 07:28] LABS: COMPLETE YES; HYPOCHROMIA PRESENT
[2017-06-07 07:35] LABS: BUN/CREATININE RATIO 13.2 (10-20); CALCIUM 7.5 mg/dl (8.5-10.1); CREATININE 0.74 mg/dl (0.60-1.20)
[2017-06-07 07:37] LABS: ALB/GLOB RATIO 0.8 (0.9-2)
[2017-06-07 07:51] LABS: ESTIMATED AVERAGE GLUCOSE 154 mg/dl; HA1C FLAG Normal (Normal)
--- NOTE | 2017-06-07 08:06 | Surgery Progress Note ---
Surgery Progress Note Date of Service Jun 07, 2017. Subjective Post OP Day: 1 + feeling well, + pain controlled, No nausea Objective Vital Signs: Date Time Temp Pulse Resp B/P (MAP) Pulse Ox O2 Delivery O2 Flow Rate FiO2 06/07/17 07:48 37.1 104 18 144/74 (97) 96 Room Air 06/07/17 03:38 36.7 96 16 129/54 (79) 97 Nasal Cannula 1.0 06/06/17 23:50 Room Air 06/06/17 22:54 37.0 102 17 132/75 (94) 99 Nasal Cannula 1.0 06/06/17 21:00 36.7 100 20 125/70 (88) 100 Room Air 1.0 06/06/17 19:15 Nasal Cannula 1.0 06/06/17 17:30 36.5 98 16 129/61 (83) 99 Room Air 06/06/17 16:15 100 Nasal Cannula 1.0 06/06/17 15:30 36.3 87 16 109/70 (83) 100 Nasal Cannula 2.0 06/06/17 15:00 88 16 112/69 (83) 100 Nasal Cannula 2.0 06/06/17 14:30 36.6 90 16 144/79 (100) 99 Nasal Cannula 2.0 06/06/17 14:30 Nasal Cannula 2.0 06/06/17 14:10 36.6 91 16 160/79 100 Nasal Cannula 2 06/06/17 14:00 36.6 92 16 176/75 100 Nasal Cannula 2 06/06/17 13:50 93 16 172/90 100 Oxymask 10 06/06/17 13:40 94 16 182/91 100 Oxymask 10 06/06/17 13:30 36.6 94 16 176/88 100 Oxymask 10 06/06/17 08:58 36.6 102 18 162/75 98 Room Air Physical Exam: urine output (200) Abdomen: soft, + distended (slighlty) Incision(s): clean, dry (dressing) Laboratory Results: Results Past 24 Hours Test 06/06/17 08:49 06/06/17 09:01 06/06/17 14:24 06/06/17 16:07 Range/Units Bedside Glucose 173 211 70-90 mg/dl White Blood Count 8.29 4.8-10.8 K/uL Red Blood Count 4.11 4.2-5.4 M/uL Hemoglobin 9.0 12.0-16.0 g/dL Hematocrit 30.9 37-47 % Mean Corpuscular Volume 75.2 80-100 fL Mean Corpuscular Hemoglobin 21.9 25-34 pg Mean Corpuscular Hemoglobin Concent 29.1 32-36 g/dl RDW Standard Deviation 42.1 36.4-46.3 fL RDW Coefficient of Variation 15.4 11.5-14.5 % Platelet Count 358 130-400 K/uL Mean Platelet Volume 10.0 7.4-10.4 fL Prothrombin Time 11.2 9.0-12.0 SECONDS Prothromb Time International Ratio 1.1 0.9-1.1 Activated Partial Thromboplast Time 25.8 21.0-31.0 SECONDS Partial Thromboplastin Ratio 1.0 Test 06/06/17 18:23 06/06/17 19:53 06/06/17 23:47 06/07/17 05:42 Range/Units Bedside Glucose 243 218 193 70-90 mg/dl White Blood Count 12.83 4.8-10.8 K/uL Red Blood Count 3.74 4.2-5.4 M/uL Hemoglobin 8.4 12.0-16.0 g/dL Hematocrit 28.2 37-47 % Mean Corpuscular Volume 75.4 80-100 fL Mean Corpuscular Hemoglobin 22.5 25-34 pg Mean Corpuscular Hemoglobin Concent 29.8 32-36 g/dl RDW Standard Deviation 42.8 36.4-46.3 fL RDW Coefficient of Variation 15.4 11.5-14.5 % Platelet Count 375 130-400 K/uL Mean Platelet Volume 10.0 7.4-10.4 fL Sodium Level 137 136-145 mmol/L Potassium Level 4.2 3.5-5.1 mmol/L Chloride Level 106 98-107 mmol/L Carbon Dioxide Level 24 21-32 mmol/L Anion Gap 7.0 3-11 mmol/L Blood Urea Nitrogen 10 7-18 mg/dl Creatinine 0.92 0.60-1.20 mg/dl Est Creatinine Clear Calc Drug Dose 36.6 ml/min Estimated GFR () 64.4 Estimated GFR (Non- 55.6 BUN/Creatinine Ratio 10.7 10-20 Random Glucose 226 70-99 mg/dl Calcium Level 8.1 8.5-10.1 mg/dl Test 06/07/17 06:44 Range/Units White Blood Count 9.76 4.8-10.8 K/uL Red Blood Count 3.29 4.2-5.4 M/uL Hemoglobin 7.2 12.0-16.0 g/dL Hematocrit 24.7 37-47 % Mean Corpuscular Volume 75.1 80-100 fL Mean Corpuscular Hemoglobin 21.9 25-34 pg Mean Corpuscular Hemoglobin Concent 29.1 32-36 g/dl Platelet Count 294 130-400 K/uL Mean Platelet Volume 9.1 7.4-10.4 fL Neutrophils (%) (Auto) 74.1 % Lymphocytes (%) (Auto) 16.6 % Monocytes (%) (Auto) 8.9 % Eosinophils (%) (Auto) 0.1 % Basophils (%) (Auto) 0.1 % Neutrophils # (Auto) 7.23 1.4-6.5 K/uL Lymphocytes # (Auto) 1.62 1.2-3.4 K/uL Monocytes # (Auto) 0.87 0.11-0.59 K/uL Eosinophils # (Auto) 0.01 0-0.5 K/uL Basophils # (Auto) 0.01 0-0.2 K/uL RDW Standard Deviation 42.1 36.4-46.3 fL RDW Coefficient of Variation 15.5 11.5-14.5 % Immature Granulocyte % (Auto) 0.2 % Immature Granulocyte # (Auto) 0.02 0.00-0.02 K/uL Hypochromasia PRESENT Prothrombin Time 11.2 9.0-12.0 SECONDS Prothromb Time International Ratio 1.1 0.9-1.1 Activated Partial Thromboplast Time 26.8 21.0-31.0 SECONDS Partial Thromboplastin Ratio 1.0 Sodium Level 137 136-145 mmol/L Potassium Level 4.0 3.5-5.1 mmol/L Chloride Level 107 98-107 mmol/L Carbon Dioxide Level 23 21-32 mmol/L Anion Gap 7.0 3-11 mmol/L Blood Urea Nitrogen 10 7-18 mg/dl Creatinine 0.74 0.60-1.20 mg/dl Est Creatinine Clear Calc Drug Dose 45.6 ml/min Estimated GFR () 83.8 Estimated GFR (Non- 72.3 BUN/Creatinine Ratio 13.2 10-20 Random Glucose 166 70-99 mg/dl Estimated Average Glucose 154 mg/dl Hemoglobin A1c 7.0 4.5-5.6 % Calcium Level 7.5 8.5-10.1 mg/dl Total Bilirubin 0.4 0.2-1 mg/dl Aspartate Amino Transf (AST/SGOT) 13 15-37 U/L Alanine Aminotransferase (ALT/SGPT) 11 12-78 U/L Alkaline Phosphatase 98 45-117 U/L Total Protein 5.1 6.4-8.2 gm/dl Albumin 2.2 3.4-5.0 gm/dl Globulin 2.9 2.5-4.0 gm/dl Albumin/Globulin Ratio 0.8 0.9-2 Assessment & Plan extended right hemicolectomy can have clears mobilize, ok to d/c crocker when OOB more chronic anemia H&H down 1g from preop, mild tachycardia, normotensive and asymptomatic, will continue to monitor DM home lantus 5mg + SSI
--- NOTE | 2017-06-07 08:45 | Anesthesiology Progress Note ---
Anesthesia Post Op Note Date & Time Jun 07, 2017 at 08:45 Vital Signs Pain Intensity: 8.0 Vital Signs Past 12 Hours Date Time Temp Pulse Resp B/P (MAP) Pulse Ox O2 Delivery O2 Flow Rate FiO2 06/07/17 08:13 96 Room Air 06/07/17 07:48 37.1 104 18 144/74 (97) 96 Room Air 06/07/17 03:38 36.7 96 16 129/54 (79) 97 Nasal Cannula 1.0 06/06/17 23:50 Room Air 06/06/17 22:54 37.0 102 17 132/75 (94) 99 Nasal Cannula 1.0 06/06/17 21:00 36.7 100 20 125/70 (88) 100 Room Air 1.0 Notes Mental Status: alert / awake / arousable, participated in evaluation Pt Amnestic to Procedure: Yes Nausea / Vomiting: adequately controlled Pain: adequately controlled Airway Patency, RR, SpO2: stable & adequate BP & HR: stable & adequate Hydration State: stable & adequate Anesthetic Complications: no major complications apparent
[2017-06-07] MEDS ORDERED: DONEPEZIL HCL 5 MG TAB PO SCH (09:00)
[2017-06-07] MEDS: ENOXAPARIN 30 MG/0.3 ML SYR SQ SCH (09:00)
[2017-06-07] MEDS: ACETAMINOPHEN IV 1,000 MG in EMPTY BAG 0 ML IV SCH ×2 (09:54→18:40)
[2017-06-07] MEDS: MULTIVITAMIN TAB PO SCH (09:55)
[2017-06-07] MEDS: MEMANTINE 10 MG TAB PO SCH ×2 (09:55→21:00)
[2017-06-07] MEDS: METHENAMINE HIPPURATE 1 GM TAB PO SCH ×2 (09:56→21:00)
[2017-06-07] MEDS: FAMOTIDINE 20 MG TAB PO SCH ×2 (09:56→21:00)
--- NOTE | 2017-06-07 10:37 | Hospitalist Progress Note ---
Hospitalist Progress Note Date of Service Jun 07, 2017. Subjective Pt evaluation today including: conversation w/ patient, conversation w/ family , physical exam, lab review, review of studies, review of inpatient medication list Voiding: crocker catheter in place Patient sitting up in bed. Diet advanced to clears as per surgery- tolerating well. +flatus postop. Abdominal pain is well controlled. Encouraged incentive spirometer and OOB as tolerated. Surgery planning to d/c Crocker later today. Patient denies any fever, chills, sweats, lightheadedness, dizziness, vision changes, CP, palpitations, edema, SOB, wheezing, cough, nausea, vomiting, diarrhea, urinary symptoms, melena, numbness/tingling, weakness, muscle/joint pain, anxiety/depression, active bleeding, or new skin discoloration/changes. Medications Current Inpatient Medications Medications (Trade) Dose Ordered Sig/Rocio Route Start Time Stop Time Status Last Admin Dose Admin Lactated Ringer's 1,000 ml @ 100 mls/hr Q10H IV 06/06/17 13:27 07/06/17 13:26 06/07/17 04:50 100 MLS/HR Acetaminophen/ Hydrocodone Bitart ([place] 5/325 Tab) 1 tab Q4H PRN PO 06/06/17 13:30 06/20/17 13:29 Future Hold Morphine Sulfate (MoRPHine SULFATE INJ) 2 mg Q3H PRN IV 06/06/17 13:30 06/20/17 13:29 Acetaminophen/ Hydrocodone Bitart ([place] 5/325 Tab) 2 tab Q4H PRN PO 06/06/17 13:30 06/20/17 13:29 Future Hold Morphine Sulfate (MoRPHine SULFATE INJ) 4 mg Q3H PRN IV 06/06/17 13:30 06/20/17 13:29 Ondansetron HCl (Zofran Inj) 4 mg Q6H PRN IV 06/06/17 13:30 07/06/17 13:29 Enoxaparin Sodium (Lovenox Inj) 30 mg QAM SQ 06/07/17 09:00 07/07/17 08:59 Acetaminophen 1000 mg/Empty Bag 100 ml @ 400 mls/hr Q8H IV 06/06/17 16:00 07/06/17 15:59 06/07/17 09:54 400 MLS/HR Donepezil HCl (Aricept Tab) 5 mg HS PO 06/06/17 21:00 07/06/17 20:59 06/06/17 20:52 5 MG Memantine (Namenda Tab) 10 mg BID PO 06/06/17 21:00 07/06/17 20:59 06/07/17 09:55 10 MG Famotidine (Pepcid Tab) 20 mg BID PO 06/06/17 21:00 07/06/17 20:59 06/07/17 09:56 20 MG Insulin Glargine (Lantus Solostar Pen) 5 units QPM SC 06/06/17 21:00 07/06/17 20:59 06/06/17 21:10 5 UNITS Lovastatin (Mevacor Tab) 10 mg HS PO 06/06/17 21:00 07/06/17 20:59 06/06/17 20:54 10 MG Methenamine Hippurate (Urex Tab) 1 gm BID PO 06/06/17 21:00 07/06/17 20:59 06/07/17 09:56 1 GM Multivitamins (Multivitamin Tab) 1 tab QAM PO 06/07/17 09:00 07/07/17 08:59 06/07/17 09:55 1 TAB Glucose (Glucose 40% Gel) 15-30 GRAMS 15 GRAMS... UD PRN PO 06/06/17 19:45 07/06/17 19:44 Glucose (Glucose Chew Tab) 4-8 Tablets 4 Tabl... UD PRN PO 06/06/17 19:45 07/06/17 19:44 Dextrose (Dextrose 50% 50ML Syringe) 25-50ML OF 50% DW IV FOR... UD PRN IV 06/06/17 19:45 07/06/17 19:44 Glucagon (Glucagon Inj) 1 mg UD PRN SQ 06/06/17 19:45 07/06/17 19:44 Tramadol HCl (Ultram Tab) 50 mg Q6H PRN PO 06/06/17 20:15 07/06/17 20:14 06/06/17 20:51 50 MG Insulin Aspart (novoLOG ASPART) SLIDING SCALE G... Q6H SC 06/07/17 00:00 07/07/17 00:00 06/07/17 05:45 1 UNITS Phenol (Chloraseptic 1.4% [place]) 1 sprays DAILY PRN MT 06/06/17 20:30 07/06/17 20:29 Objective Vital Signs Date Time Temp Pulse Resp B/P (MAP) Pulse Ox O2 Delivery O2 Flow Rate FiO2 06/07/17 08:13 96 Room Air 06/07/17 07:48 37.1 104 18 144/74 (97) 96 Room Air 06/07/17 03:38 36.7 96 16 129/54 (79) 97 Nasal Cannula 1.0 06/06/17 23:50 Room Air 06/06/17 22:54 37.0 102 17 132/75 (94) 99 Nasal Cannula 1.0 06/06/17 21:00 36.7 100 20 125/70 (88) 100 Room Air 1.0 06/06/17 19:15 Nasal Cannula 1.0 06/06/17 17:30 36.5 98 16 129/61 (83) 99 Room Air 06/06/17 16:15 100 Nasal Cannula 1.0 06/06/17 15:30 36.3 87 16 109/70 (83) 100 Nasal Cannula 2.0 06/06/17 15:00 88 16 112/69 (83) 100 Nasal Cannula 2.0 06/06/17 14:30 36.6 90 16 144/79 (100) 99 Nasal Cannula 2.0 06/06/17 14:30 Nasal Cannula 2.0 06/06/17 14:10 36.6 91 16 160/79 100 Nasal Cannula 2 06/06/17 14:00 36.6 92 16 176/75 100 Nasal Cannula 2 06/06/17 13:50 93 16 172/90 100 Oxymask 10 06/06/17 13:40 94 16 182/91 100 Oxymask 10 06/06/17 13:30 36.6 94 16 176/88 100 Oxymask 10 Physical Exam General Appearance: no apparent distress Eyes: normal inspection, PERRL ENT: hearing grossly normal Neck: supple Respiratory/Chest: lungs clear, no respiratory distress, no accessory muscle use Cardiovascular: regular rate, rhythm Abdomen: normal bowel sounds, soft, + distended, + tenderness (appropriately tender), + pertinent finding (incison site C/D/I) Extremities: no pedal edema, no calf tenderness Neurologic/Psychiatric: alert, normal mood/affect, oriented x 3 Skin: normal color, warm/dry, no rash Laboratory Results Last 24 Hours Test 06/06/17 14:24 06/06/17 16:07 06/06/17 18:23 06/06/17 19:53 Bedside Glucose 211 mg/dl 243 mg/dl Prothrombin Time 11.2 SECONDS Prothromb Time International Ratio 1.1 Activated Partial Thromboplast Time 25.8 SECONDS Partial Thromboplastin Ratio 1.0 White Blood Count 12.83 K/uL Red Blood Count 3.74 M/uL Hemoglobin 8.4 g/dL Hematocrit 28.2 % Mean Corpuscular Volume 75.4 fL Mean Corpuscular Hemoglobin 22.5 pg Mean Corpuscular Hemoglobin Concent 29.8 g/dl RDW Standard Deviation 42.8 fL RDW Coefficient of Variation 15.4 % Platelet Count 375 K/uL Mean Platelet Volume 10.0 fL Sodium Level 137 mmol/L Potassium Level 4.2 mmol/L Chloride Level 106 mmol/L Carbon Dioxide Level 24 mmol/L Anion Gap 7.0 mmol/L Blood Urea Nitrogen 10 mg/dl Creatinine 0.92 mg/dl Est Creatinine Clear Calc Drug Dose 36.6 ml/min Estimated GFR () 64.4 Estimated GFR (Non- 55.6 BUN/Creatinine Ratio 10.7 Random Glucose 226 mg/dl Calcium Level 8.1 mg/dl Test 06/06/17 23:47 06/07/17 05:42 06/07/17 06:44 Bedside Glucose 218 mg/dl 193 mg/dl White Blood Count 9.76 K/uL Red Blood Count 3.29 M/uL Hemoglobin 7.2 g/dL Hematocrit 24.7 % Mean Corpuscular Volume 75.1 fL Mean Corpuscular Hemoglobin 21.9 pg Mean Corpuscular Hemoglobin Concent 29.1 g/dl Platelet Count 294 K/uL Mean Platelet Volume 9.1 fL Neutrophils (%) (Auto) 74.1 % Lymphocytes (%) (Auto) 16.6 % Monocytes (%) (Auto) 8.9 % Eosinophils (%) (Auto) 0.1 % Basophils (%) (Auto) 0.1 % Neutrophils # (Auto) 7.23 K/uL Lymphocytes # (Auto) 1.62 K/uL Monocytes # (Auto) 0.87 K/uL Eosinophils # (Auto) 0.01 K/uL Basophils # (Auto) 0.01 K/uL RDW Standard Deviation 42.1 fL RDW Coefficient of Variation 15.5 % Immature Granulocyte % (Auto) 0.2 % Immature Granulocyte # (Auto) 0.02 K/uL Hypochromasia PRESENT Prothrombin Time 11.2 SECONDS Prothromb Time International Ratio 1.1 Activated Partial Thromboplast Time 26.8 SECONDS Partial Thromboplastin Ratio 1.0 Sodium Level 137 mmol/L Potassium Level 4.0 mmol/L Chloride Level 107 mmol/L Carbon Dioxide Level 23 mmol/L Anion Gap 7.0 mmol/L Blood Urea Nitrogen 10 mg/dl Creatinine 0.74 mg/dl Est Creatinine Clear Calc Drug Dose 45.6 ml/min Estimated GFR () 83.8 Estimated GFR (Non- 72.3 BUN/Creatinine Ratio 13.2 Random Glucose 166 mg/dl Estimated Average Glucose 154 mg/dl Hemoglobin A1c 7.0 % Calcium Level 7.5 mg/dl Total Bilirubin 0.4 mg/dl Aspartate Amino Transf (AST/SGOT) 13 U/L Alanine Aminotransferase (ALT/SGPT) 11 U/L Alkaline Phosphatase 98 U/L Total Protein 5.1 gm/dl Albumin 2.2 gm/dl Globulin 2.9 gm/dl Albumin/Globulin Ratio 0.8 Assessment and Plan 86 y/o female with a history of colon cancer, HTN, HLD, DM II, dementia, anemia , and GERD who presents s/p open partial colectomy, enterolysis and incisional hernia repair with Dr. Dong on 06/06 for medical management. Transverse colon mass and colon cancer s/p open partial colectomy, enterolysis, incisional hernia repair; colon cancer by Dr. Dong on 06/06: - Surgical management, pain management, DVT prophylaxis, and PT/OT as per primary team - Follow postop CBC and PRP - Encouraged incentive spirometer Acute on chronic microcystic anemia- baseline hgb 9-10: - Follow CBC -- hgb 7.2- repeat at noon today- transfuse PRN if hgb continues to drop <7 or becomes symptomatic HTN, HLD- STABLE: Continue Lovastatin 10 mg PO HS T2DM- HgbA1c 7.0%: - Continue Lantus 5 units SC HS - BSG ACHS and ISS Dementia: Continue Aricept 5 mg PO qd and Namenda 10 mg PO BID GERD: Continue Pepcid 20 mg PO BID DVT prophylaxis: As per surgical team Code Status: LEVEL I, FULL Dispo: As per primary team
[2017-06-07 12:29] LABS: HEMATOCRIT 24.2 % (37-47)
[2017-06-07] MEDS ORDERED: NURSING VERBAL MED ORDER ONE ×2 (15:30→23:30)
[2017-06-07 20:49] LABS: HEMATOCRIT 23.6 % (37-47)
[2017-06-07] MEDS: LOVASTATIN 20 MG TAB PO SCH (21:00)
[2017-06-07] MEDS: DONEPEZIL HCL 5 MG TAB PO SCH (21:00)
[2017-06-07] MEDS: PANTOprazole INJ 40 MG in SYRINGE 0 ML IV SCH (22:31)
[2017-06-07] MEDS: INSULIN GLARGINE SOLOSTAR 100 UNITS/ML 3 ML PEN SC SCH (22:38)
[2017-06-08] MEDS: INSULIN ASPART 100 UNITS/ML 3 ML PEN SC SCH ×5 (00:19→22:13)
[2017-06-08 00:55] VITALS: BP 148/75; PULSE 99; TEMP 36.5; O2SAT 96
[2017-06-08] MEDS: ACETAMINOPHEN IV 1,000 MG in EMPTY BAG 0 ML IV SCH ×3 (02:26→17:07)
[2017-06-08 02:59] LABS: BASO % 0.2 %; BASO ABS # 0.03 K/uL (0-0.2); EOS % 0.8 %; HEMATOCRIT 26.5 % (37-47); IG% 0.3 %; LYMPH % 13.4 %; LYMPH ABS # 1.62 K/uL (1.2-3.4); MEAN CELL VOLUME 74.4 fL (80-100); MEAN CORPUSCULAR HEMOGLOBIN 22.8 pg (25-34); MEAN CORPUSCULAR HGB CONC 30.6 g/dl (32-36); MEAN PLATELET VOLUME 9.4 fL (7.4-10.4); MONO % 9.2 %; NEUT % 76.1 %; PLATELET COUNT 252 K/uL (130-400); RED BLOOD COUNT 3.56 M/uL (4.2-5.4); WHITE BLOOD COUNT 12.13 K/uL (4.8-10.8)
[2017-06-08 03:12] LABS: INR 1.2 (0.9-1.1); PARTIAL THROMBOPLASTIN RATIO 1.2; PROTHROMBIN TIME (PATIENT) 12.1 SECONDS (9.0-12.0)
[2017-06-08 04:03] LABS: COMPLETE YES; POLYCHROMASIA 1+
[2017-06-08] MEDS: LACTATED RINGER'S 1000ML 1,000 ML IV SCH ×2 (06:15→17:07)
[2017-06-08] MEDS ORDERED: NURSING VERBAL MED ORDER ONE ×3 (06:30→18:15)
--- NOTE | 2017-06-08 06:48 | Surgery Progress Note ---
Surgery Progress Note Date of Service Jun 08, 2017. Subjective vitals stable, awake, alert, min pain H/H improved, not out of bed yet Objective Vital Signs: Date Time Temp Pulse Resp B/P (MAP) Pulse Ox O2 Delivery O2 Flow Rate FiO2 06/08/17 00:55 36.5 99 18 148/75 96 06/08/17 00:10 Room Air 06/07/17 23:50 36.8 102 18 142/63 95 06/07/17 23:20 36.6 100 18 148/85 97 06/07/17 22:50 36.9 101 18 145/65 94 06/07/17 22:29 36.5 99 18 137/72 95 0.0 06/07/17 15:30 Room Air 06/07/17 14:58 37.0 107 18 145/70 (95) 96 Room Air 06/07/17 11:56 37.2 104 16 146/70 (95) 96 Room Air 06/07/17 08:13 96 Room Air 06/07/17 08:00 Room Air 06/07/17 07:48 37.1 104 18 144/74 (97) 96 Room Air General Appearance: no apparent distress Respiratory/Chest: no respiratory distress Abdomen: + distended (some bowel sounds) Incision(s): intact Laboratory Results: Results Past 24 Hours Test 06/07/17 12:02 06/07/17 12:04 06/07/17 17:03 06/07/17 19:26 Range/Units Bedside Glucose 200 215 70-90 mg/dl Hemoglobin 7.3 6.9 12.0-16.0 g/dL Hematocrit 24.2 23.6 37-47 % Test 06/07/17 20:13 06/08/17 00:11 06/08/17 02:47 06/08/17 05:47 Range/Units Bedside Glucose 279 199 182 70-90 mg/dl White Blood Count 12.13 4.8-10.8 K/uL Red Blood Count 3.56 4.2-5.4 M/uL Hemoglobin 8.1 12.0-16.0 g/dL Hematocrit 26.5 37-47 % Mean Corpuscular Volume 74.4 80-100 fL Mean Corpuscular Hemoglobin 22.8 25-34 pg Mean Corpuscular Hemoglobin Concent 30.6 32-36 g/dl Platelet Count 252 130-400 K/uL Mean Platelet Volume 9.4 7.4-10.4 fL Neutrophils (%) (Auto) 76.1 % Lymphocytes (%) (Auto) 13.4 % Monocytes (%) (Auto) 9.2 % Eosinophils (%) (Auto) 0.8 % Basophils (%) (Auto) 0.2 % Neutrophils # (Auto) 9.22 1.4-6.5 K/uL Lymphocytes # (Auto) 1.62 1.2-3.4 K/uL Monocytes # (Auto) 1.12 0.11-0.59 K/uL Eosinophils # (Auto) 0.10 0-0.5 K/uL Basophils # (Auto) 0.03 0-0.2 K/uL RDW Standard Deviation 40.8 36.4-46.3 fL RDW Coefficient of Variation 15.0 11.5-14.5 % Immature Granulocyte % (Auto) 0.3 % Immature Granulocyte # (Auto) 0.04 0.00-0.02 K/uL Polychromasia 1+ Prothrombin Time 12.1 9.0-12.0 SECONDS Prothromb Time International Ratio 1.2 0.9-1.1 Activated Partial Thromboplast Time 31.0 21.0-31.0 SECONDS Partial Thromboplastin Ratio 1.2 Assessment & Plan 06/08/17- overall stable- cont ice only, walk in room, PT consult H/H ok, check lytes, Mg, Phos. try to mobilize advance diet slowly
[2017-06-08 07:53] VITALS: BP 149/68; PULSE 95; TEMP 36.8; O2SAT 96
[2017-06-08] MEDS: PANTOprazole INJ 40 MG in SYRINGE 0 ML IV SCH (09:00)
[2017-06-08] MEDS: METHENAMINE HIPPURATE 1 GM TAB PO SCH ×2 (09:00→22:10)
[2017-06-08] MEDS: MULTIVITAMIN TAB PO SCH (09:00)
[2017-06-08] MEDS: FAMOTIDINE 20 MG TAB PO SCH ×2 (09:01→22:10)
[2017-06-08] MEDS: MEMANTINE 10 MG TAB PO SCH ×2 (09:01→22:09)
[2017-06-08 09:09] LABS: HEMATOCRIT 26.3 % (37-47)
[2017-06-08 09:38] LABS: BUN/CREATININE RATIO 11.4 (10-20); CALCIUM 7.8 mg/dl (8.5-10.1); CREATININE 0.54 mg/dl (0.60-1.20); MAGNESIUM 1.7 mg/dl (1.8-2.4); PHOSPHORUS 1.7 mg/dl (2.5-4.9); POTASSIUM 3.6 mmol/L (3.5-5.1)
[2017-06-08] MEDS: ENOXAPARIN 30 MG/0.3 ML SYR SQ SCH (10:15)
[2017-06-08 11:06] LABS: HEMATOCRIT 27.2 % (37-47)
[2017-06-08 11:30] VITALS: BP 136/73; PULSE 100; TEMP 36.8; O2SAT 96
--- NOTE | 2017-06-08 13:18 | Progress Note ---
Subjective Date of Service: Jun 08, 2017. Subjective Pt evaluation today including: conversation w/ patient, physical exam, chart review, lab review, review of studies, review of inpatient medication list Pt resting comfortably in bed Hg <7 yesterday and transfused overnight Asymptomatic, denies chest pain and shortness and breath No acute events overnight Currently on ice chips only Problem List Medical Problems: (1) Altered mental status Status: Acute (2) Anemia Status: Acute (3) Colonic mass Status: Acute (4) Hypoglycemia Status: Acute (5) Hypokalemia Status: Acute (6) Hyponatremia Status: Acute (7) Ventral hernia Status: Acute Review of Systems Constitutional: No fever, No chills, No sweats, No weakness Eyes: No worsening of vision, No eye pain, No redness, No discharge ENT: No hearing loss, No unusual epistaxis, No nasal symptoms, No sore throat Respiratory: No cough, No sputum, No wheezing, No shortness of breath, No dyspnea on exertion Cardiac: No chest pain, No orthopnea, No PND, No edema, No claudication Abdomen: No pain, No nausea, No vomiting, No diarrhea, No constipation Musculoskeletal: No joint pain, No muscle pain, No swelling, No calf pain Female : No dysuria, No urinary frequency, No hematuria, No incontinence Neurologic: No memory loss, No paralysis, No weakness, No numbness/tingling Psychiatric: No depression symptoms, No anhedonism, No anxiety, No insomnia Endo: No fatigue, No excessive thirst Skin: No rash, No itch Objective Vital Signs Date Time Temp Pulse Resp B/P (MAP) Pulse Ox O2 Delivery O2 Flow Rate FiO2 06/08/17 07:53 36.8 95 17 149/68 (95) 96 Room Air 06/08/17 07:30 Room Air 06/08/17 00:55 36.5 99 18 148/75 96 06/08/17 00:10 Room Air 06/07/17 23:50 36.8 102 18 142/63 95 06/07/17 23:20 36.6 100 18 148/85 97 06/07/17 22:50 36.9 101 18 145/65 94 06/07/17 22:29 36.5 99 18 137/72 95 0.0 06/07/17 15:30 Room Air 06/07/17 14:58 37.0 107 18 145/70 (95) 96 Room Air Physical Exam General Appearance: WD/WN, no apparent distress Eyes: normal inspection, PERRL, EOMI, sclerae normal Neck: supple, no adenopathy, thyroid normal, no JVD Respiratory/Chest: chest non-tender, lungs clear, normal breath sounds, no respiratory distress Cardiovascular: regular rate, rhythm, no edema, no gallop, no JVD Abdomen: normal bowel sounds, non tender, soft, no organomegaly Neurologic/Psychiatric: no motor/sensory deficits, alert, normal mood/affect, oriented x 3 Laboratory Results Last 24 Hours Test 06/07/17 17:03 06/07/17 19:26 06/07/17 20:13 06/08/17 00:11 Bedside Glucose 215 mg/dl 279 mg/dl 199 mg/dl Hemoglobin 6.9 g/dL Hematocrit 23.6 % Test 06/08/17 02:47 06/08/17 05:47 06/08/17 09:02 06/08/17 10:52 White Blood Count 12.13 K/uL Red Blood Count 3.56 M/uL Hemoglobin 8.1 g/dL 7.9 g/dL 8.4 g/dL Hematocrit 26.5 % 26.3 % 27.2 % Mean Corpuscular Volume 74.4 fL Mean Corpuscular Hemoglobin 22.8 pg Mean Corpuscular Hemoglobin Concent 30.6 g/dl Platelet Count 252 K/uL Mean Platelet Volume 9.4 fL Neutrophils (%) (Auto) 76.1 % Lymphocytes (%) (Auto) 13.4 % Monocytes (%) (Auto) 9.2 % Eosinophils (%) (Auto) 0.8 % Basophils (%) (Auto) 0.2 % Neutrophils # (Auto) 9.22 K/uL Lymphocytes # (Auto) 1.62 K/uL Monocytes # (Auto) 1.12 K/uL Eosinophils # (Auto) 0.10 K/uL Basophils # (Auto) 0.03 K/uL RDW Standard Deviation 40.8 fL RDW Coefficient of Variation 15.0 % Immature Granulocyte % (Auto) 0.3 % Immature Granulocyte # (Auto) 0.04 K/uL Polychromasia 1+ Prothrombin Time 12.1 SECONDS Prothromb Time International Ratio 1.2 Activated Partial Thromboplast Time 31.0 SECONDS Partial Thromboplastin Ratio 1.2 Bedside Glucose 182 mg/dl Sodium Level 136 mmol/L Potassium Level 3.6 mmol/L Chloride Level 104 mmol/L Carbon Dioxide Level 27 mmol/L Anion Gap 5.0 mmol/L Blood Urea Nitrogen 6 mg/dl Creatinine 0.54 mg/dl Est Creatinine Clear Calc Drug Dose 62.4 ml/min Estimated GFR () 97.6 Estimated GFR (Non- 84.3 BUN/Creatinine Ratio 11.4 Random Glucose 143 mg/dl Calcium Level 7.8 mg/dl Phosphorus Level 1.7 mg/dl Magnesium Level 1.7 mg/dl Test 06/08/17 11:56 Bedside Glucose 139 mg/dl Assessment and Plan 86 y/o female with a history of colon cancer, HTN, HLD, DM II, dementia, anemia , and GERD who presents s/p open partial colectomy, enterolysis and incisional hernia repair with Dr. Dong on 06/06 for medical management. Transverse colon mass and colon cancer s/p open partial colectomy, enterolysis, incisional hernia repair; colon cancer by Dr. Dong on 06/06: - Surgical management, pain management, DVT prophylaxis, and PT/OT as per primary team - Follow postop CBC and PRP - Encouraged incentive spirometer - Currently on ice chips only Acute on chronic microcystic anemia- baseline hgb 9-10: - Follow CBC -- Transfuse PRBCs on 06/07, cont to monitor HH HTN, HLD- STABLE: Continue Lovastatin 10 mg PO HS T2DM- HgbA1c 7.0%: - Continue Lantus 5 units SC HS - BSG ACHS and ISS Dementia: Continue Aricept 5 mg PO qd and Namenda 10 mg PO BID GERD: Continue Pepcid 20 mg PO BID DVT prophylaxis: As per surgical team Code Status: LEVEL I, FULL Dispo: As per primary team
[2017-06-08 14:53] LABS: HEMATOCRIT 25.8 % (37-47)
[2017-06-08 15:39] VITALS: BP 156/71; PULSE 96; TEMP 37.4; O2SAT 99
[2017-06-08] MEDS: LOVASTATIN 20 MG TAB PO SCH (22:08)
[2017-06-08] MEDS: DONEPEZIL HCL 5 MG TAB PO SCH (22:09)
[2017-06-08] MEDS: INSULIN GLARGINE SOLOSTAR 100 UNITS/ML 3 ML PEN SC SCH (22:13)
[2017-06-08 23:02] VITALS: BP 162/92; PULSE 95; TEMP 36.8; O2SAT 96
[2017-06-09] MEDS: ACETAMINOPHEN IV 1,000 MG in EMPTY BAG 0 ML IV SCH ×3 (00:24→16:07)
[2017-06-09] MEDS: PANTOprazole INJ 40 MG in SYRINGE 0 ML IV SCH (00:59)
[2017-06-09 01:16] VITALS: BP 162/78; PULSE 95
[2017-06-09] MEDS: TRAMADOL HCL 50 MG TAB PO PRN ×2 (01:18→08:09)
[2017-06-09] MEDS: LACTATED RINGER'S 1000ML 1,000 ML IV SCH (02:07)
[2017-06-09 04:30] VITALS: BP 153/76
--- NOTE | 2017-06-09 06:23 | Surgery Progress Note ---
Surgery Progress Note Date of Service Jun 09, 2017. Subjective awake, alert, no bm, or flatus yet- no N/V incontinent of urine- saturates pads- walking to BR w/ assist some abd pain- taking min pain med H/H stable Objective Vital Signs: Date Time Temp Pulse Resp B/P (MAP) Pulse Ox O2 Delivery O2 Flow Rate FiO2 06/09/17 04:30 153/76 (101) 06/09/17 01:16 95 162/78 (106) 06/09/17 00:10 Room Air 06/08/17 23:02 36.8 95 17 162/92 (115) 96 Room Air 06/08/17 15:45 Room Air 06/08/17 15:39 37.4 96 18 156/71 (99) 99 Room Air 06/08/17 11:30 36.8 100 16 136/73 (94) 96 Room Air 06/08/17 07:53 36.8 95 17 149/68 (95) 96 Room Air 06/08/17 07:30 Room Air General Appearance: no apparent distress Respiratory/Chest: no respiratory distress Abdomen: + distended, + pertinent finding (decreased bowel sounds) Incision(s): intact Laboratory Results: Results Past 24 Hours Test 06/08/17 09:02 06/08/17 10:52 06/08/17 11:56 06/08/17 14:44 Range/Units Hemoglobin 7.9 8.4 7.8 12.0-16.0 g/dL Hematocrit 26.3 27.2 25.8 37-47 % Sodium Level 136 136-145 mmol/L Potassium Level 3.6 3.5-5.1 mmol/L Chloride Level 104 98-107 mmol/L Carbon Dioxide Level 27 21-32 mmol/L Anion Gap 5.0 3-11 mmol/L Blood Urea Nitrogen 6 7-18 mg/dl Creatinine 0.54 0.60-1.20 mg/dl Est Creatinine Clear Calc Drug Dose 62.4 ml/min Estimated GFR () 97.6 Estimated GFR (Non- 84.3 BUN/Creatinine Ratio 11.4 10-20 Random Glucose 143 70-99 mg/dl Calcium Level 7.8 8.5-10.1 mg/dl Phosphorus Level 1.7 2.5-4.9 mg/dl Magnesium Level 1.7 1.8-2.4 mg/dl Bedside Glucose 139 70-90 mg/dl Test 06/08/17 17:51 06/08/17 20:42 06/09/17 04:44 Range/Units Bedside Glucose 119 196 70-90 mg/dl Assessment & Plan 06/09/17- Suspect mild ileus- no diet yet exc- popcicles, ice replace low Mg, Phos monitor H/H, try to mobilize- now walking some 06/08/17- overall stable- cont ice only, walk in room, PT consult H/H ok, check lytes, Mg, Phos. try to mobilize advance diet slowly 06/08/17- overall stable- cont ice only, walk in room, PT consult H/H ok, check lytes, Mg, Phos. try to mobilize advance diet slowly
[2017-06-09] MEDS ORDERED: [UNRECOGNIZED DRUG - OTHER] IV ONE (06:30)
[2017-06-09] MEDS ORDERED: MAG SULFATE IV ONE (06:30)
[2017-06-09] MEDS ORDERED: POTASSIUM PHOSPHATE IV ONE (06:30)
[2017-06-09 06:53] LABS: BASO % 0.2 %; BASO ABS # 0.02 K/uL (0-0.2); EOS % 0.5 %; HEMATOCRIT 29.3 % (37-47); IG% 0.2 %; LYMPH ABS # 0.76 K/uL (1.2-3.4); MEAN CELL VOLUME 74.6 fL (80-100); MEAN CORPUSCULAR HEMOGLOBIN 22.9 pg (25-34); MEAN CORPUSCULAR HGB CONC 30.7 g/dl (32-36); MEAN PLATELET VOLUME 9.4 fL (7.4-10.4); MONO % 5.1 %; PLATELET COUNT 304 K/uL (130-400); RED BLOOD COUNT 3.93 M/uL (4.2-5.4); WHITE BLOOD COUNT 12.59 K/uL (4.8-10.8)
[2017-06-09 07:05] LABS: INR 1.1 (0.9-1.1); PARTIAL THROMBOPLASTIN RATIO 1.2; PROTHROMBIN TIME (PATIENT) 11.2 SECONDS (9.0-12.0)
[2017-06-09 07:10] VITALS: BP 162/77; PULSE 95; TEMP 37; O2SAT 95
[2017-06-09 07:34] LABS: CREATININE 0.48 mg/dl (0.60-1.20); MAGNESIUM 1.8 mg/dl (1.8-2.4)
[2017-06-09 07:36] LABS: COMPLETE YES; ECHINOCYTES 1+; HYPOCHROMIA PRESENT; OVALOCYTES 1+
[2017-06-09 07:37] LABS: PHOSPHORUS 2.4 mg/dl (2.5-4.9)
[2017-06-09] MEDS ORDERED: SODIUM PHOSPHATE 3 MMOL/1 ML INFUSION IV STA (07:51)
[2017-06-09] MEDS ORDERED: SODIUM PHOSPHATE INJ 9 MMOL in SODIUM CHLORIDE 0.9% 250ML 250 ML IV STA (07:51)
[2017-06-09] MEDS: INSULIN ASPART 100 UNITS/ML 3 ML PEN SC SCH ×4 (08:00→21:00)
[2017-06-09] MEDS: MULTIVITAMIN TAB PO SCH (08:07)
[2017-06-09] MEDS: METHENAMINE HIPPURATE 1 GM TAB PO SCH ×2 (08:07→21:41)
[2017-06-09] MEDS: MEMANTINE 10 MG TAB PO SCH ×2 (08:08→21:40)
[2017-06-09] MEDS: ENOXAPARIN 30 MG/0.3 ML SYR SQ SCH (08:08)
[2017-06-09] MEDS: FAMOTIDINE 20 MG TAB PO SCH ×2 (08:08→21:40)
[2017-06-09 14:59] VITALS: BP 155/68; PULSE 97; TEMP 37; O2SAT 93
--- NOTE | 2017-06-09 15:12 | Progress Note ---
Subjective Date of Service: Jun 09, 2017. Subjective Pt evaluation today including: conversation w/ patient, conversation w/ family , physical exam, chart review, lab review, review of studies, review of inpatient medication list Resting comfortably in bed BM this AM TOlerating clear liquid diet Pain controlled Problem List Medical Problems: (1) Altered mental status Status: Acute (2) Anemia Status: Acute (3) Colonic mass Status: Acute (4) Hypoglycemia Status: Acute (5) Hypokalemia Status: Acute (6) Hyponatremia Status: Acute (7) Ventral hernia Status: Acute Review of Systems Constitutional: No fever, No chills, No sweats ENT: No hearing loss, No unusual epistaxis, No nasal symptoms, No sore throat Respiratory: No cough, No sputum, No wheezing, No shortness of breath Cardiac: No chest pain, No orthopnea, No PND, No edema Abdomen: No pain, No nausea, No vomiting, No diarrhea, No constipation Musculoskeletal: No joint pain, No muscle pain, No swelling, No calf pain Female : No dysuria, No urinary frequency, No hematuria, No incontinence Neurologic: No memory loss, No paralysis, No weakness, No numbness/tingling Psychiatric: No depression symptoms, No anhedonism, No anxiety, No insomnia Endo: No fatigue, No excessive thirst Skin: No rash, No itch Objective Vital Signs Date Time Temp Pulse Resp B/P (MAP) Pulse Ox O2 Delivery O2 Flow Rate FiO2 06/09/17 14:59 37.0 97 16 155/68 (97) 93 Room Air 06/09/17 07:15 Room Air 06/09/17 07:10 37.0 95 17 162/77 (105) 95 Room Air 06/09/17 04:30 153/76 (101) 06/09/17 01:16 95 162/78 (106) 06/09/17 00:10 Room Air 06/08/17 23:02 36.8 95 17 162/92 (115) 96 Room Air 06/08/17 15:45 Room Air 06/08/17 15:39 37.4 96 18 156/71 (99) 99 Room Air Physical Exam General Appearance: WD/WN, no apparent distress Eyes: normal inspection, PERRL, EOMI, sclerae normal Neck: supple, no adenopathy, thyroid normal, no JVD Respiratory/Chest: chest non-tender, lungs clear, normal breath sounds, no respiratory distress Cardiovascular: regular rate, rhythm, no edema, no gallop, no JVD Abdomen: normal bowel sounds, non tender, soft, no organomegaly Extremities: normal range of motion, non-tender, normal inspection, no pedal edema Neurologic/Psychiatric: no motor/sensory deficits, alert, normal mood/affect, oriented x 3 Laboratory Results Last 24 Hours Test 06/08/17 17:51 06/08/17 20:42 06/09/17 06:39 06/09/17 08:06 Bedside Glucose 119 mg/dl 196 mg/dl 157 mg/dl White Blood Count 12.59 K/uL Red Blood Count 3.93 M/uL Hemoglobin 9.0 g/dL Hematocrit 29.3 % Mean Corpuscular Volume 74.6 fL Mean Corpuscular Hemoglobin 22.9 pg Mean Corpuscular Hemoglobin Concent 30.7 g/dl Platelet Count 304 K/uL Mean Platelet Volume 9.4 fL Neutrophils (%) (Auto) 88.0 % Lymphocytes (%) (Auto) 6.0 % Monocytes (%) (Auto) 5.1 % Eosinophils (%) (Auto) 0.5 % Basophils (%) (Auto) 0.2 % Neutrophils # (Auto) 11.08 K/uL Lymphocytes # (Auto) 0.76 K/uL Monocytes # (Auto) 0.64 K/uL Eosinophils # (Auto) 0.06 K/uL Basophils # (Auto) 0.02 K/uL RDW Standard Deviation 43.2 fL RDW Coefficient of Variation 15.7 % Immature Granulocyte % (Auto) 0.2 % Immature Granulocyte # (Auto) 0.03 K/uL Hypochromasia PRESENT Ovalocytes 1+ Echinocytes 1+ Prothrombin Time 11.2 SECONDS Prothromb Time International Ratio 1.1 Activated Partial Thromboplast Time 31.3 SECONDS Partial Thromboplastin Ratio 1.2 Creatinine 0.48 mg/dl Est Creatinine Clear Calc Drug Dose 70.2 ml/min Estimated GFR () 101.5 Estimated GFR (Non- 87.6 Phosphorus Level 2.4 mg/dl Magnesium Level 1.8 mg/dl Test 06/09/17 11:59 Bedside Glucose 190 mg/dl Assessment and Plan 86 y/o female with a history of colon cancer, HTN, HLD, DM II, dementia, anemia , and GERD who presents s/p open partial colectomy, enterolysis and incisional hernia repair with Dr. Dong on 06/06 for medical management. Transverse colon mass and colon cancer s/p open partial colectomy, enterolysis, incisional hernia repair; colon cancer by Dr. Dong on 06/06: - Surgical management, pain management, DVT prophylaxis, and PT/OT as per primary team - Follow postop CBC and PRP - Encouraged incentive spirometer - Currently on clear liquid diet - BM this AM Acute on chronic microcystic anemia- baseline hgb 9-10: - Follow CBC -- Transfuse PRBCs on 06/07, cont to monitor HH HTN, HLD- STABLE: Continue Lovastatin 10 mg PO HS T2DM- HgbA1c 7.0%: - Continue Lantus 5 units SC HS - BSG ACHS and ISS Dementia: Continue Aricept 5 mg PO qd and Namenda 10 mg PO BID GERD: Continue Pepcid 20 mg PO BID DVT prophylaxis: As per surgical team Code Status: LEVEL I, FULL Dispo: As per primary team
[2017-06-09] MEDS: NSS + 20MEQ KCL 1000ML 1,000 ML IV SCH (16:08)
[2017-06-09] MEDS: DONEPEZIL HCL 5 MG TAB PO SCH (21:39)
[2017-06-09] MEDS: LOVASTATIN 20 MG TAB PO SCH (21:40)
[2017-06-09] MEDS: INSULIN GLARGINE SOLOSTAR 100 UNITS/ML 3 ML PEN SC SCH (21:44)
[2017-06-09 22:49] VITALS: BP 155/77; PULSE 98; TEMP 36.6; O2SAT 97
[2017-06-10] MEDS: ACETAMINOPHEN IV 1,000 MG in EMPTY BAG 0 ML IV SCH ×4 (00:11→23:57)
[2017-06-10] MEDS: NSS + 20MEQ KCL 1000ML 1,000 ML IV SCH (02:37)
[2017-06-10 06:51] LABS: CALCIUM 7.5 mg/dl (8.5-10.1); CREATININE 0.57 mg/dl (0.60-1.20); POTASSIUM 3.6 mmol/L (3.5-5.1)
[2017-06-10 07:58] VITALS: BP 154/94; PULSE 112; TEMP 37; O2SAT 97
[2017-06-10] MEDS: INSULIN ASPART 100 UNITS/ML 3 ML PEN SC SCH ×4 (08:00→21:39)
[2017-06-10 08:01] VITALS: O2SAT 97
[2017-06-10 08:35] LABS: BASO % 0.3 %; BASO ABS # 0.03 K/uL (0-0.2); COMPLETE YES; EOS % 4.8 %; HEMATOCRIT 29.3 % (37-47); IG% 0.3 %; LYMPH % 18.2 %; LYMPH ABS # 2.18 K/uL (1.2-3.4); MEAN CELL VOLUME 75.1 fL (80-100); MEAN CORPUSCULAR HEMOGLOBIN 23.6 pg (25-34); MEAN CORPUSCULAR HGB CONC 31.4 g/dl (32-36); MEAN PLATELET VOLUME 9.7 fL (7.4-10.4); MONO % 7.4 %; PLATELET COUNT 378 K/uL (130-400); WHITE BLOOD COUNT 11.97 K/uL (4.8-10.8)
[2017-06-10] MEDS: MULTIVITAMIN TAB PO SCH (08:35)
[2017-06-10] MEDS: FAMOTIDINE 20 MG TAB PO SCH ×2 (08:35→21:32)
[2017-06-10] MEDS: METHENAMINE HIPPURATE 1 GM TAB PO SCH ×2 (08:36→21:31)
[2017-06-10] MEDS: MEMANTINE 10 MG TAB PO SCH ×2 (08:36→21:30)
[2017-06-10] MEDS: ENOXAPARIN 30 MG/0.3 ML SYR SQ SCH (08:37)
--- NOTE | 2017-06-10 08:57 | Surgery Progress Note ---
Surgery Progress Note Date of Service Jun 10, 2017. Subjective Post OP Day: 4 + feeling well, + ambulating (OOB with assistance and walker), + bowel movement (Multiple), + flatus, + pain controlled, + diet (Clear liquids), No complaints, No nausea, No vomiting Doing well, denies nausea/vomiting with meals. Objective Vital Signs: Date Time Temp Pulse Resp B/P (MAP) Pulse Ox O2 Delivery O2 Flow Rate FiO2 06/10/17 00:15 Room Air 06/09/17 22:49 36.6 98 18 155/77 (103) 97 Room Air 06/09/17 16:00 Room Air 06/09/17 14:59 37.0 97 16 155/68 (97) 93 Room Air Physical Exam: urine output (100 ml yesterday, patient can be incontinent) General Appearance: WD/WN, no apparent distress Head: normocephalic, atraumatic Neck: supple Respiratory/Chest: no respiratory distress, no accessory muscle use Abdomen: normal bowel sounds, non distended, soft, no organomegaly, no pulsatile mass, + tenderness (Mild incisional) Incision(s): clean, dry, intact, no erythema, no drainage Laboratory Results: Results Past 24 Hours Test 06/09/17 08:06 06/09/17 11:59 06/09/17 17:08 06/09/17 20:21 Range/Units Bedside Glucose 157 190 166 148 70-90 mg/dl Test 06/10/17 06:01 Range/Units Sodium Level 137 136-145 mmol/L Potassium Level 3.6 3.5-5.1 mmol/L Chloride Level 105 98-107 mmol/L Carbon Dioxide Level 23 21-32 mmol/L Anion Gap 9.0 3-11 mmol/L Blood Urea Nitrogen 6 7-18 mg/dl Creatinine 0.57 0.60-1.20 mg/dl Est Creatinine Clear Calc Drug Dose 59.1 ml/min Estimated GFR () 95.9 Estimated GFR (Non- 82.8 BUN/Creatinine Ratio 10.0 10-20 Random Glucose 130 70-99 mg/dl Calcium Level 7.5 8.5-10.1 mg/dl Assessment & Plan 06/10/2017: POD #4 s/p Open Extended Partial Colectomy, Extensive Enterolysis; Repair of Incisional Hernia Doing well, pain controlled, incision intact. tolerating clears, no N/V. +BM, H/H stable. D/C IV to saline lock. Continue ambulation, recheck H/H. Advance diet as tolerated, will attempt full liquids. Please contact with questions or concerns.
[2017-06-10] MEDS ORDERED: NURSING VERBAL MED ORDER ONE (09:45)
[2017-06-10 11:25] VITALS: BP 153/71; PULSE 92; TEMP 37; O2SAT 99
--- NOTE | 2017-06-10 12:52 | Progress Note ---
Subjective Date of Service: Jun 10, 2017. Subjective Pt evaluation today including: conversation w/ patient, physical exam, chart review, lab review, review of studies, review of inpatient medication list Resting in bed comfortably Tolerated liquid diet Abd pain resolving No N/V Had bowel movement this AM Problem List Medical Problems: (1) Altered mental status Status: Acute (2) Anemia Status: Acute (3) Colonic mass Status: Acute (4) Hypoglycemia Status: Acute (5) Hypokalemia Status: Acute (6) Hyponatremia Status: Acute (7) Ventral hernia Status: Acute Review of Systems Constitutional: No fever, No chills, No sweats, No weight loss Eyes: No worsening of vision, No eye pain, No redness, No discharge ENT: No hearing loss, No unusual epistaxis, No nasal symptoms, No sore throat Respiratory: No cough, No sputum, No wheezing, No shortness of breath, No dyspnea on exertion Cardiac: No chest pain, No orthopnea, No PND, No edema, No claudication Abdomen: + pain, No nausea, No vomiting, No diarrhea, No constipation Musculoskeletal: No joint pain, No muscle pain, No swelling, No calf pain Female : No dysuria, No urinary frequency, No hematuria, No incontinence Neurologic: No memory loss, No paralysis, No weakness, No numbness/tingling Psychiatric: No depression symptoms, No anhedonism, No anxiety, No insomnia Endo: No fatigue, No excessive thirst Skin: No rash, No itch Objective Vital Signs Date Time Temp Pulse Resp B/P (MAP) Pulse Ox O2 Delivery O2 Flow Rate FiO2 06/10/17 11:25 37.0 92 12 153/71 (98) 99 Room Air 06/10/17 08:01 97 Room Air 06/10/17 07:58 37.0 112 12 154/94 (114) 97 Room Air 06/10/17 07:40 Room Air 06/10/17 00:15 Room Air 06/09/17 22:49 36.6 98 18 155/77 (103) 97 Room Air 06/09/17 16:00 Room Air 06/09/17 14:59 37.0 97 16 155/68 (97) 93 Room Air Physical Exam General Appearance: WD/WN, no apparent distress Eyes: normal inspection, PERRL, EOMI, sclerae normal Neck: supple, no adenopathy, thyroid normal, no JVD Respiratory/Chest: chest non-tender, lungs clear, normal breath sounds, no respiratory distress Cardiovascular: regular rate, rhythm, no edema, no gallop, no JVD Abdomen: normal bowel sounds, soft, no organomegaly, + tenderness Extremities: normal range of motion, non-tender, normal inspection, no pedal edema Neurologic/Psychiatric: no motor/sensory deficits, alert, normal mood/affect, oriented x 3 Skin: normal color, warm/dry, no rash Lymphatic: no adenopathy Laboratory Results Last 24 Hours Test 06/09/17 17:08 06/09/17 20:21 06/10/17 06:01 06/10/17 08:07 Bedside Glucose 166 mg/dl 148 mg/dl 136 mg/dl White Blood Count 11.97 K/uL Red Blood Count 3.90 M/uL Hemoglobin 9.2 g/dL Hematocrit 29.3 % Mean Corpuscular Volume 75.1 fL Mean Corpuscular Hemoglobin 23.6 pg Mean Corpuscular Hemoglobin Concent 31.4 g/dl Platelet Count 378 K/uL Mean Platelet Volume 9.7 fL Neutrophils (%) (Auto) 69.0 % Lymphocytes (%) (Auto) 18.2 % Monocytes (%) (Auto) 7.4 % Eosinophils (%) (Auto) 4.8 % Basophils (%) (Auto) 0.3 % Neutrophils # (Auto) 8.28 K/uL Lymphocytes # (Auto) 2.18 K/uL Monocytes # (Auto) 0.88 K/uL Eosinophils # (Auto) 0.57 K/uL Basophils # (Auto) 0.03 K/uL RDW Standard Deviation 43.7 fL RDW Coefficient of Variation 16.2 % Immature Granulocyte % (Auto) 0.3 % Immature Granulocyte # (Auto) 0.03 K/uL Sodium Level 137 mmol/L Potassium Level 3.6 mmol/L Chloride Level 105 mmol/L Carbon Dioxide Level 23 mmol/L Anion Gap 9.0 mmol/L Blood Urea Nitrogen 6 mg/dl Creatinine 0.57 mg/dl Est Creatinine Clear Calc Drug Dose 59.1 ml/min Estimated GFR () 95.9 Estimated GFR (Non- 82.8 BUN/Creatinine Ratio 10.0 Random Glucose 130 mg/dl Calcium Level 7.5 mg/dl Assessment and Plan 86 y/o female with a history of colon cancer, HTN, HLD, DM II, dementia, anemia , and GERD who presents s/p open partial colectomy, enterolysis and incisional hernia repair with Dr. Dong on 06/06 for medical management. Transverse colon mass and colon cancer s/p open partial colectomy, enterolysis, incisional hernia repair; colon cancer by Dr. Dong on 06/06: - Surgical management, pain management, DVT prophylaxis, and PT/OT as per primary team - Follow postop CBC and PRP - Encouraged incentive spirometer - Currently on liquid diet, advance as tolerated - BM this AM Acute on chronic microcystic anemia- baseline hgb 9-10: - Follow CBC -- Transfuse PRBCs on 06/07, cont to monitor HH, stable at this time HTN, HLD- STABLE: Continue Lovastatin 10 mg PO HS T2DM- HgbA1c 7.0%: - Continue Lantus 5 units SC HS - BSG ACHS and ISS Dementia: Continue Aricept 5 mg PO qd and Namenda 10 mg PO BID GERD: Continue Pepcid 20 mg PO BID DVT prophylaxis: As per surgical team Code Status: LEVEL I, FULL Dispo: As per primary team, stable for DC from medical perspective, continue to slowly advance diet
[2017-06-10 15:21] VITALS: BP 166/66; PULSE 104; TEMP 37.2; O2SAT 99
[2017-06-10] MEDS: DONEPEZIL HCL 5 MG TAB PO SCH (21:31)
[2017-06-10] MEDS: LOVASTATIN 20 MG TAB PO SCH (21:32)
[2017-06-10] MEDS: INSULIN GLARGINE SOLOSTAR 100 UNITS/ML 3 ML PEN SC SCH (21:39)
[2017-06-10 23:05] VITALS: BP 147/74; PULSE 88; TEMP 36.7; O2SAT 99
[2017-06-11 07:13] LABS: BUN/CREATININE RATIO 12.8 (10-20); CALCIUM 7.8 mg/dl (8.5-10.1); CREATININE 0.5 mg/dl (0.60-1.20); POTASSIUM 3.2 mmol/L (3.5-5.1)
--- NOTE | 2017-06-11 07:21 | Surgery Progress Note ---
Surgery Progress Note Date of Service Jun 11, 2017. Subjective Post OP Day: 5 + feeling well, + bowel movement, + pain controlled, + diet (regular) Objective Vital Signs: Date Time Temp Pulse Resp B/P (MAP) Pulse Ox O2 Delivery O2 Flow Rate FiO2 06/10/17 23:55 Room Air 06/10/17 23:05 36.7 88 18 147/74 (98) 99 Room Air 06/10/17 19:17 Room Air 06/10/17 16:10 Room Air 06/10/17 15:21 37.2 104 16 166/66 (99) 99 Room Air 06/10/17 11:25 37.0 92 12 153/71 (98) 99 Room Air 06/10/17 08:01 97 Room Air 06/10/17 07:58 37.0 112 12 154/94 (114) 97 Room Air 06/10/17 07:40 Room Air Abdomen: non distended, soft Incision(s): clean, dry, ecchymosis (along incision) Laboratory Results: Results Past 24 Hours Test 06/10/17 08:07 06/10/17 11:51 06/10/17 17:05 06/10/17 20:47 Range/Units Bedside Glucose 136 125 163 195 70-90 mg/dl Test 06/11/17 06:15 Range/Units Sodium Level 135 136-145 mmol/L Potassium Level 3.2 3.5-5.1 mmol/L Chloride Level 103 98-107 mmol/L Carbon Dioxide Level 23 21-32 mmol/L Anion Gap 9.0 3-11 mmol/L Blood Urea Nitrogen 6 7-18 mg/dl Creatinine 0.50 0.60-1.20 mg/dl Est Creatinine Clear Calc Drug Dose 67.4 ml/min Estimated GFR () 100.2 Estimated GFR (Non- 86.4 BUN/Creatinine Ratio 12.8 10-20 Random Glucose 129 70-99 mg/dl Calcium Level 7.8 8.5-10.1 mg/dl Assessment & Plan extended right hemicolectomy tolerating diet ok for d/c from surgical standpoint will give po K+ this AM chronic anemia stable after 1 unit PRBCs DM home lantus 5mg + SSI
--- NOTE | 2017-06-11 07:27 | Discharge Instructions ---
Discharge Instructions Date of Service Jun 11, 2017. Admission Reason for Admission: Colonic Mass Discharge Discharge Diagnosis / Problem: right colectomy, acute/chronic anemia Discharge Goals Goal(s): Improve nutritional status Activity Recommendations Activity Level: Ambulates in room Therapies: Physical Therapy, Occupational Therapy Lifting Limitations: no more than 10 pounds Shower/Bathe: no limitations . Additional Information Patient informed of condition: Yes Advance Directives: No DNR: No Level of Care: Other Communicable Disease: No Prognosis: Improving Instructions / Follow-Up Instructions / Follow-Up Dr. Dong's office in 1 week for staple removal, [phone] Current Hospital Diet Patient's current hospital diet: Diabetes Type 2 Diet, Low Fiber Diet Discharge Diet Recommended Diet: Diabetes Type 2 Diet, Low Fiber Diet Procedures Procedures Performed: Open Extended Partial Colectomy, Extensive Enterolysis; Repair of Incisional Hernia Pending Studies Studies pending at discharge: no Laboratory Results Hemoglobin A1c Test 06/07/17 06:44 Range/Units Estimated Average Glucose 154 mg/dl Hemoglobin A1c 7.0 H 4.5-5.6 % Medical Emergencies . Who to Call and When: Medical Emergencies: If at any time you feel your situation is an emergency, please call 911 immediately. . Non-Emergent Contact Non-Emergency issues call your: Surgeon Call Non-Emergent contact if: you have a fever, temperature is above 101.5, you have any medication questions . . "Provider Documentation" section prepared by Jalil Deluna. . Core Measure Problem Core Measures: None
[2017-06-11] MEDS: ACETAMINOPHEN IV 1,000 MG in EMPTY BAG 0 ML IV SCH (07:34)
[2017-06-11 07:39] VITALS: BP 150/65; PULSE 95; TEMP 36.9; O2SAT 96
--- NOTE | 2017-06-11 08:54 | DISCHARGE SUMMARY ---
PRIMARY DISCHARGE DIAGNOSES: 1. Colon cancer. 2. Incisional hernia. 3. Chronic anemia with blood loss anemia. SECONDARY DISCHARGE DIAGNOSES: 1. Type 2 diabetes. 2. Dementia. 3. Gastroesophageal reflux disease. PROCEDURES PERFORMED: Open extended right colectomy with extensive enterolysis and repair of incisional hernia. CONSULTATIONS: Jenelle Katz hospitalist to assist in medical management. HOSPITAL COURSE: The patient is an 86-year-old female with a large right colon mass with biopsy proven adenocarcinoma, now brought in through same-day and taken to the operating room for resection. The procedure was well tolerated. The final pathology is pending at the time of dictation. She has done well postoperatively. She did develop a more acute anemia over the initial 24 hours. Her hemoglobin had fallen from 8.1 preoperatively to 6.9 in the evening of postoperative day 1. She was transfused 1 unit of packed red blood cells. Her hemoglobin on postoperative day 2 was 8.1 and remained stable for the remainder of admission. No additional transfusions were necessary. She was able to tolerate clear liquids, although her bowel function was somewhat slow to return. By day 4, she was having multiple bowel movements. She was able to tolerate advancing diet over the next day. Pain was managed primarily with IV acetaminophen. On postoperative day 5, she was tolerating diet. Additional home therapies were recommended. Her H&H had equilibrated at 9 and 29. Her abdomen was soft. Her incision was clean and dry. She was stable for transfer back to [facility]. DISCHARGE INSTRUCTIONS: Return to [facility], continue home therapies. Follow up with Dr. Dong in 7-10 days. DISCHARGE MEDICATIONS: Tylenol 1000 mg as needed, vitamin C 250 mg daily, aspirin 81 mg daily, cranberry supplement, Aricept 5 mg daily, Pepcid 20 mg b.i.d., Lantus 5 units in the evening, lovastatin 10 mg daily, Namenda 10 mg b.i.d., daily multivitamin, Bactroban cream as needed, Soothe eyedrops as needed, methenamine hippurate 1 gram p.o. b.i.d. MTDD
[2017-06-11] MEDS ORDERED: POTASSIUM CHLORIDE 20 MEQ TABCR PO SCH (09:00)
[2017-06-11] MEDS ORDERED: ENOXAPARIN 40 MG/0.4 ML SYR SQ SCH (09:00)
[2017-06-11] MEDS: METHENAMINE HIPPURATE 1 GM TAB PO SCH (09:08)
[2017-06-11] MEDS: FAMOTIDINE 20 MG TAB PO SCH (09:08)
[2017-06-11] MEDS: MULTIVITAMIN TAB PO SCH (09:08)
[2017-06-11] MEDS: MEMANTINE 10 MG TAB PO SCH (09:09)
[2017-06-11] MEDS: INSULIN ASPART 100 UNITS/ML 3 ML PEN SC SCH ×2 (09:10→12:44)
[2017-06-11 11:19] VITALS: BP 150/65; PULSE 95; TEMP 36.9; O2SAT 96
== END 2017-06-11 14:10 | disposition home or self-care (01) | DRG 330 ==
LOC: C.ACU 08:29 → C.MSN 10:40 → ENRESERV 14:15
PROVIDERS: ADMIT Surgery; ATTEND Surgery
PROC: 0WQF0ZZ Repair Abdominal Wall, Open Approach (ICD-10-PCS; principal; 2017-06-06 10:35)
PROC: 0DBL0ZZ Excision of Transverse Colon, Open Approach (ICD-10-PCS; principal; 2017-06-06 10:35)
DX: C18.9 Malignant neoplasm of colon, unspecified (principal); D62 Acute posthemorrhagic anemia; K43.2 Incisional hernia without obstruction or gangrene; F03.90 Unspecified dementia, unspecified severity, without behavioral disturbance, psychotic disturbance, mood disturbance, and anxiety; Z82.3 Family history of stroke; Z82.49 Family history of ischemic heart disease and other diseases of the circulatory system; Z80.3 Family history of malignant neoplasm of breast

== ENCOUNTER 2017-06-15 14:57 | Emergency (ER) | payer OTHER ==
[~2017-06-15] VITALS: Ht 162.6 cm; Wt 100.0 kg
[~2017-06-15 14:57] MED LIST changes: -CEFAZOLIN 2000MG IV PUSH 10 ML IV SCH; -HEPARIN SOD 5000 UNIT/0.5 ML CARP SQ SCH; +INSDGI SC; -INSU100I23 INJ; -LACTATED RINGER'S 1000ML 1,000 ML IV SCH; +MVC20 PO
[2017-06-15 15:12] VITALS: Ht 162.6 cm; Wt 100.0 kg
[2017-06-15] MEDS ORDERED: FUROSEMIDE 40 MG/4 ML VIAL IV STA (15:25)
[2017-06-15 16:22] LABS: BASO % 0.3 %; BASO ABS # 0.02 K/uL (0-0.2); EOS % 6.2 %; HEMATOCRIT 28.2 % (37-47); IG% 0.5 %; LYMPH % 24.1 %; LYMPH ABS # 1.87 K/uL (1.2-3.4); MEAN CELL VOLUME 76.4 fL (80-100); MEAN CORPUSCULAR HGB CONC 30.1 g/dl (32-36); MEAN PLATELET VOLUME 8.7 fL (7.4-10.4); MONO % 9.7 %; NEUT % 59.2 %; PLATELET COUNT 373 K/uL (130-400); RED BLOOD COUNT 3.69 M/uL (4.2-5.4); WHITE BLOOD COUNT 7.75 K/uL (4.8-10.8)
[2017-06-15 16:31] LABS: PROTHROMBIN TIME (PATIENT) 10.4 SECONDS (9.0-12.0)
[2017-06-15 16:41] LABS: ALT/SGPT 15 U/L (12-78); BLOOD UREA NITROGEN 8 mg/dl (7-18); BUN/CREATININE RATIO 10.5 (10-20); CALCIUM 7.8 mg/dl (8.5-10.1); CARBON DIOXIDE 29 mmol/L (21-32); CHLORIDE 103 mmol/L (98-107); CREATININE 0.72 mg/dl (0.60-1.20); GLUCOSE 171 mg/dl (70-99); POTASSIUM 3.7 mmol/L (3.5-5.1); SODIUM 138 mmol/L (136-145)
[2017-06-15 16:46] LABS: ALKALINE PHOSPHATASE 114 U/L (45-117); AST/SGOT 17 U/L (15-37)
[2017-06-15 17:09] LABS: COMPLETE YES; EOSINOPHIL % 6.1 %; HYPOCHROMIA PRESENT; LYMPH ABS # 1.68 K/uL (1.2-3.4); LYMPHOCYTE % 21.7 %; POLYCHROMASIA 1+
--- NOTE | 2017-06-15 17:13 | DIAGNOSTIC IMAGING REPORT ---
BILATERAL LOWER EXTREMITY VENOUS DOPPLER HISTORY: Leg swelling. COMPARISON STUDY: None. FINDINGS: There is normal compressibility, flow, and augmentation within the bilateral lower extremity deep venous systems. IMPRESSION: No DVT within the right or left lower extremity. Electronically signed by: Kyler Enamorado M.D. 06/15/2017 5:12 PM Dictated Date/Time: 06/15/2017 5:11 PM
[2017-06-15] MEDS ORDERED: FURO20TA PO (17:33)
[2017-06-15 17:54] VITALS: BP 129/109; PULSE 94; TEMP 36.9; O2SAT 99
--- NOTE | 2017-06-15 18:04 | DIAGNOSTIC IMAGING REPORT ---
CHEST ONE VIEW PORTABLE HISTORY: Short of breath. COMPARISON: Chest 05/29/2017. FINDINGS: No pneumothorax. Mild emphysema. The heart is stable in size. The patient is rotated on this study. Right shoulder prosthesis. Small bilateral pleural effusions have progressed. No evidence for pulmonary edema. Skin cande within the midabdomen. IMPRESSION: Increase in size in the small bilateral pleural effusions. No evidence for pulmonary edema at this time. Electronically signed by: Kyler Enamorado M.D. 06/15/2017 6:02 PM Dictated Date/Time: 06/15/2017 6:01 PM
--- NOTE | 2017-06-16 11:30 | EMERGENCY ROOM VISIT NOTE ---
History Report prepared by Eloy: Selvin Mejía Under the Supervision of: Dr. Thiago Shelton M.D. First contact with patient: 15:03 Chief Complaint: EDEMA TO EXTREMITY Stated Complaint: EDEMA IN LEGS & FEET History of Present Illness The patient is an 86 year old diabetic female who presents to the Emergency Room with complaints of worsening leg and feet swelling that started upon waking this morning. She states that after waking up, she could not put her shoes on, and her daughter noticed that the patient's legs and feet were very swollen. The patient says that her feet started swelling a bit yesterday. Per the patient's daughter, the patient did not have any notable leg swelling yesterday. The patient says that she has never had lower extremity swelling like this in the past. The patient notes that she had a transverse colectomy last week on the . She denies any worsening shortness of breath, chest pain, fevers, calf pain, or bowel movement changes. The patient is not on Lasix. She notes no history of kidney disease or CHF. Source of History: patient Onset: Upon waking this morning Position: leg (bilateral), foot (bilateral) Symptom Intensity: could not put shoes on Timing: other (persistent) Associated Symptoms: + abdominal pain (incisional pain), No fevers, No chest pain, No SOB (no worsened) Note: Associated symptoms: Denies calf pain, bowel movement changes. Review of Systems See HPI for pertinent positives & negatives. A total of 10 systems reviewed and were otherwise negative. Past Medical & Surgical Medical Problems: (1) Colonic mass (2) Diabetes (3) SBO (small bowel obstruction) Family History Breast cancer Colon cancer Myocardial infarction Stroke Social History Smoking Status: Never Smoker Alcohol Use: none Drug Use: none Marital Status: Housing Status: assisted living Occupation Status: retired Current/Historical Medications Scheduled Ascorbic Acid (Vitamin C), 250 MG PO QAM Donepezil Hydrochloride (Donepezil Hcl), 5 MG PO HS Famotidine (Pepcid), 20 MG PO BID Furosemide (Lasix), 1 TAB PO DAILY Insulin Glargine (Lantus), 10 UNITS SC HS Memantine Hcl (Namenda), 10 MG PO BID Methenamine Hippurate (Methenamine Hippurate), 1 GM PO BID Multiple Vitamin (Multi Vitamin Daily), 1 TAB PO QAM Mupirocin 2% (Bactroban 2%), 1 APPLN EXT UD Propylene Glycol-Glycerin (Soothe), 1-2 DROPS OPB HS Scheduled PRN Acetaminophen (Tylenol Extra Strength), 1,000 MG PO DAILY PRN for PRN Allergies Coded Allergies: Clotrimazole (Verified Allergy, Intermediate, hives, 06/15/17) Sulfa Antibiotics (Verified Allergy, Unknown, HIVES, 06/06/17) Physical Exam Vital Signs Date Time Temp Pulse Resp B/P (MAP) Pulse Ox O2 Delivery O2 Flow Rate FiO2 06/15/17 17:54 36.9 94 18 129/109 99 06/15/17 17:31 94 18 129/109 99 Room Air 06/15/17 15:16 92 06/15/17 15:12 36.9 94 18 166/87 98 Room Air Physical Exam Constitutional: Vital signs reviewed. Eyes: Pupils are equal round reactive to light. Conjunctiva are noninjected. ENT: Pharynx is clear without erythema or exudate. Mucous membranes are moist. Neck supple without meningeal signs. Respiratory: Clear to auscultation bilaterally. Breath sounds are equal bilaterally. Cardiovascular: Regular rate and rhythm. No rubs or gallops. GI: Midline incision that is clear, dry and intact. No erythema or leakage. Soft , nondistended and nontender. Bowel sounds are present. Musculoskeletal: Bilateral pitting edema to lower extremities. Integumentary: No cyanosis. Neurological: The patient is awake and alert. No focal deficits. Psychiatric: Normal affect. Medical Decision & Procedures ER Provider Diagnostic Interpretation: Radiology results as stated below per my review and the radiologist's interpretation: BILATERAL LOWER EXTREMITY VENOUS DOPPLER HISTORY: Leg swelling. COMPARISON STUDY: None. FINDINGS: There is normal compressibility, flow, and augmentation within the bilateral lower extremity deep venous systems. IMPRESSION: No DVT within the right or left lower extremity. Electronically signed by: Kyler Enamorado M.D. 06/15/2017 5:12 PM Dictated Date/Time: 06/15/2017 5:11 PM CHEST ONE VIEW PORTABLE HISTORY: Short of breath. COMPARISON: Chest 05/29/2017. FINDINGS: No pneumothorax. Mild emphysema. The heart is stable in size. The patient is rotated on this study. Right shoulder prosthesis. Small bilateral pleural effusions have progressed. No evidence for pulmonary edema. Skin cande within the midabdomen. IMPRESSION: Increase in size in the small bilateral pleural effusions. No evidence for pulmonary edema at this time. Electronically signed by: Kyler Enamorado M.D. 06/15/2017 6:02 PM Laboratory Results 06/15/17 16:06 Red Blood Count 3.69, Mean Corpuscular Volume 76.4, Mean Corpuscular Hemoglobin 23.0, Mean Corpuscular Hemoglobin Concent 30.1, Mean Platelet Volume 8.7, Neutrophils (%) (Auto) 59.2, Lymphocytes (%) (Auto) 24.1, Monocytes (%) (Auto) 9.7, Eosinophils (%) (Auto) 6.2, Basophils (%) (Auto) 0.3, Neutrophils # (Auto) 4.59, Lymphocytes # (Auto) 1.87, Monocytes # (Auto) 0.75, Eosinophils # (Auto) 0.48, Basophils # (Auto) 0.02 06/15/17 16:06 Test 06/15/17 16:06 White Blood Count 7.75 K/uL (4.8-10.8) Red Blood Count 3.69 M/uL (4.2-5.4) Hemoglobin 8.5 g/dL (12.0-16.0) Hematocrit 28.2 % (37-47) Mean Corpuscular Volume 76.4 fL (80-100) Mean Corpuscular Hemoglobin 23.0 pg (25-34) Mean Corpuscular Hemoglobin Concent 30.1 g/dl (32-36) Platelet Count 373 K/uL (130-400) Mean Platelet Volume 8.7 fL (7.4-10.4) Neutrophils (%) (Auto) 59.2 % Lymphocytes (%) (Auto) 24.1 % Monocytes (%) (Auto) 9.7 % Eosinophils (%) (Auto) 6.2 % Basophils (%) (Auto) 0.3 % Neutrophils # (Auto) 4.59 K/uL (1.4-6.5) Lymphocytes # (Auto) 1.87 K/uL (1.2-3.4) Monocytes # (Auto) 0.75 K/uL (0.11-0.59) Eosinophils # (Auto) 0.48 K/uL (0-0.5) Basophils # (Auto) 0.02 K/uL (0-0.2) RDW Standard Deviation 49.5 fL (36.4-46.3) RDW Coefficient of Variation 17.7 % (11.5-14.5) Immature Granulocyte % (Auto) 0.5 % Immature Granulocyte # (Auto) 0.04 K/uL (0.00-0.02) Neutrophils % (Manual) 67.0 % Lymphocytes % (Manual) 21.7 % Monocytes % (Manual) 5.2 % Eosinophils % (Manual) 6.1 % Neutrophils # (Manual) 5.19 K/uL (1.4-6.5) Total Absolute Neutrophils 5.19 K/uL (1.4-6.5) Lymphocytes # (Manual) 1.68 K/uL (1.2-3.4) Total Absolute Lymphocytes 1.68 K/uL (1.2-3.4) Monocytes # (Manual) 0.40 K/uL (0.11-0.59) Eosinophils # (Manual) 0.47 K/uL (0-0.5) Polychromasia 1+ Hypochromasia PRESENT Prothrombin Time 10.4 SECONDS (9.0-12.0) Prothromb Time International Ratio 1.0 (0.9-1.1) Activated Partial Thromboplast Time 26.1 SECONDS (21.0-31.0) Partial Thromboplastin Ratio 1.0 Anion Gap 6.0 mmol/L (3-11) Est Creatinine Clear Calc Drug Dose 62.1 ml/min Estimated GFR () 86.7 Estimated GFR (Non- 74.8 BUN/Creatinine Ratio 10.5 (10-20) Calcium Level 7.8 mg/dl (8.5-10.1) Total Bilirubin 0.2 mg/dl (0.2-1) Direct Bilirubin < 0.1 mg/dl (0-0.2) Aspartate Amino Transf (AST/SGOT) 17 U/L (15-37) Alanine Aminotransferase (ALT/SGPT) 15 U/L (12-78) Alkaline Phosphatase 114 U/L (45-117) Troponin I < 0.015 ng/ml (0-0.045) Pro-B-Type Natriuretic Peptide 1777 pg/ml (0-1800) Total Protein 5.8 gm/dl (6.4-8.2) Albumin 2.3 gm/dl (3.4-5.0) Laboratory results as reviewed by me. Medications Administered Medications (Trade) Dose Ordered Sig/Rocio Route Start Time Stop Time Status Last Admin Dose Admin Furosemide (Lasix Inj) 40 mg NOW STAT IV 06/15/17 15:25 06/15/17 15:28 DC 06/15/17 15:57 40 MG ED Course 1507: The medical student evaluated the patient in room C12B. 1521: The patient was evaluated in room C12B. A complete history and physical exam was performed. 1525: Ordered Lasix Inj 40 mg IV. 1720: I reevaluated the patient and talked to her about the test results. 174: I reevaluated the patient and she is doing well. I discussed tonight's findings with her. She verbalized agreement of the treatment plan. She was discharged home. Medical Decision This is an 86-year-old female who presents with bilateral lower extremity swelling. Differential diagnosis includes dependent edema, nephrotic syndrome, CHF, DVT, idiopathic edema, medication induced edema. I did perform a limited focused review of portions of the patient's old chart on the electronic medical record. The patient was admitted for a right colectomy, and repaired incisional hernia on June 06. She has a history of colon cancer and chronic anemia. I did evaluate the patient as noted above. IV access was established. I did order and personally review the patient's 12-lead EKG and chest x-ray as described above. I did order and review the patient's blood work as noted in the electronic medical record. She is slightly anemic. Her kidney function is normal. BNP is not elevated. I did order Doppler ultrasounds of the lower extremities. I did review the images myself as well as the radiology report as described above. There is no evidence of DVT. I did treat patient with IV Lasix. I did discuss the test results with the patient and her daughter. She was discharged with a short prescription for Lasix 20 mg daily. She was advised follow up with her doctor. She was discharged in good condition. Medication Reconcilliation Current Medication List: was personally reviewed by me Blood Pressure Screening Patient's blood pressure: Elevated blood pressure Impression Primary Impression: Dependent edema Additional Impression: Anemia Scribe Attestation The scribe's documentation has been prepared under my direct and personally reviewed by me in its entirety. I confirm that the note above accurately reflects all work, treatment, procedures, and medical decision making performed by me. Departure Information Dispostion Home / Self-Care Prescriptions Furosemide (LASIX) 20 Mg Tab 1 TAB PO DAILY, #4 TAB 1 Refill Prov: Thiago Shelton M.D. 06/15/17 Referrals No Doctor, Assigned (PCP) Patient Instructions ED Leg Swelling Bilateral, My [facility] Additional Instructions You have been examined and treated today on an emergency basis only. This is not a substitute for, or an effort to provide, complete comprehensive medical care. It is impossible to recognize and treat all injuries or illnesses in a single emergency department visit. It is therefore important that you follow up closely with your physician. Call as soon as possible for an appointment. Return for worsening symptoms or if you develop fever, vomiting, chest pain, shortness breath or any other concerning symptoms. Problem Qualifiers Additional Impression: Anemia Anemia type: unspecified type Qualified Codes: D64.9 - Anemia, unspecified
== END 2017-06-15 18:00 | disposition home or self-care (01) ==
LOC: EDBD 14:57 → C.EDC 14:58
DX: R60.9 Edema, unspecified (principal); D64.9 Anemia, unspecified; E11.9 Type 2 diabetes mellitus without complications; Z85.038 Personal history of other malignant neoplasm of large intestine; Z90.49 Acquired absence of other specified parts of digestive tract; Z98.890 Other specified postprocedural states; Z80.0 Family history of malignant neoplasm of digestive organs; Z80.3 Family history of malignant neoplasm of breast; Z82.49 Family history of ischemic heart disease and other diseases of the circulatory system; Z82.3 Family history of stroke

== ENCOUNTER → 2017-06-25 | Outpatient (CLI) | payer OTHER ==
[~2017-06-25] MED LIST changes: -ASPI-435 PO; -CRAN1TAB3 PO; +FURO20TA PO; -MVC20 PO
[2017-06-25 12:25] LABS: BASO % 0.5 %; BASO ABS # 0.04 K/uL (0-0.2); EOS % 3.9 %; HEMATOCRIT 30.5 % (37-47); IG% 0.3 %; LYMPH ABS # 2.22 K/uL (1.2-3.4); MEAN CELL VOLUME 76.1 fL (80-100); MEAN CORPUSCULAR HEMOGLOBIN 22.2 pg (25-34); MEAN CORPUSCULAR HGB CONC 29.2 g/dl (32-36); MONO % 10.8 %; NEUT % 56.5 %; PLATELET COUNT 438 K/uL (130-400); RED BLOOD COUNT 4.01 M/uL (4.2-5.4); WHITE BLOOD COUNT 7.94 K/uL (4.8-10.8)
[2017-06-25 13:01] LABS: BLOOD UREA NITROGEN 7 mg/dl (7-18); BUN/CREATININE RATIO 10.8 (10-20); CALCIUM 8.4 mg/dl (8.5-10.1); CARBON DIOXIDE 26 mmol/L (21-32); CHLORIDE 103 mmol/L (98-107); CREATININE 0.65 mg/dl (0.60-1.20); GLUCOSE 171 mg/dl (70-99); POTASSIUM 3.7 mmol/L (3.5-5.1); SODIUM 135 mmol/L (136-145)
[2017-06-25 13:27] LABS: COMPLETE YES; HYPOCHROMIA PRESENT
== END | disposition home or self-care (01) ==
LOC: C.LABWYN 10:24
PROVIDERS: ATTEND Family Medicine
DX: D64.9 Anemia, unspecified (principal); E11.9 Type 2 diabetes mellitus without complications; R60.9 Edema, unspecified

== ENCOUNTER → 2017-07-11 | Outpatient (CLI) | payer OTHER ==
[2017-07-11 13:03] LABS: BASO % 0.9 %; BASO ABS # 0.06 K/uL (0-0.2); EOS % 6.8 %; EOS ABS # 0.44 K/uL (0-0.5); HEMOGLOBIN 9.3 g/dL (12.0-16.0); IG# 0.01 K/uL (0.00-0.02); LYMPH ABS # 2.02 K/uL (1.2-3.4); MEAN CELL VOLUME 75.5 fL (80-100); MEAN CORPUSCULAR HEMOGLOBIN 21.9 pg (25-34); MEAN CORPUSCULAR HGB CONC 29.1 g/dl (32-36); MEAN PLATELET VOLUME 9.9 fL (7.4-10.4); MONO % 8.6 %; MONO ABS # 0.56 K/uL (0.11-0.59); NEUT % 52.5 %; NEUT ABS # 3.42 K/uL (1.4-6.5); PLATELET COUNT 308 K/uL (130-400); RED CELL DISTRIBUTION WIDTH CV 17.2 % (11.5-14.5); RED CELL DISTRIBUTION WIDTH SD 47.6 fL (36.4-46.3); WHITE BLOOD COUNT 6.51 K/uL (4.8-10.8)
[2017-07-11 13:18] LABS: BLOOD UREA NITROGEN 5 mg/dl (7-18); CALCIUM 8.6 mg/dl (8.5-10.1); CARBON DIOXIDE 27 mmol/L (21-32); CREATININE 0.67 mg/dl (0.60-1.20); GLUCOSE 140 mg/dl (70-99); SODIUM 138 mmol/L (136-145)
[2017-07-11 13:21] LABS: CHOLESTEROL 143 mg/dl (0-200); LDL CHOLESTEROL CALCULATED 79 mg/dl
[2017-07-11 13:22] LABS: HEMOGLOBIN A1C 6.9 % (4.5-5.6)
== END | disposition home or self-care (01) ==
LOC: C.LABWYN 10:07
PROVIDERS: ATTEND Family Medicine
DX: D64.9 Anemia, unspecified (principal); I10 Essential (primary) hypertension; E11.9 Type 2 diabetes mellitus without complications; E78.5 Hyperlipidemia, unspecified

== ENCOUNTER → 2017-10-08 | Outpatient (CLI) | payer OTHER ==
[2017-10-08 13:12] LABS: BASO % 0.5 %; BASO ABS # 0.04 K/uL (0-0.2); EOS % 13.1 %; EOS ABS # 1.08 K/uL (0-0.5); HEMATOCRIT 37.7 % (37-47); HEMOGLOBIN 11.3 g/dL (12.0-16.0); IG# 0.01 K/uL (0.00-0.02); LYMPH % 29.7 %; LYMPH ABS # 2.45 K/uL (1.2-3.4); MEAN CELL VOLUME 75.2 fL (80-100); MEAN CORPUSCULAR HEMOGLOBIN 22.6 pg (25-34); MEAN PLATELET VOLUME 10.2 fL (7.4-10.4); MONO % 7.6 %; MONO ABS # 0.63 K/uL (0.11-0.59); NEUT ABS # 4.03 K/uL (1.4-6.5); PLATELET COUNT 249 K/uL (130-400); RED CELL DISTRIBUTION WIDTH CV 18.4 % (11.5-14.5); RED CELL DISTRIBUTION WIDTH SD 50.4 fL (36.4-46.3); WHITE BLOOD COUNT 8.24 K/uL (4.8-10.8)
[2017-10-08 13:54] LABS: HEMOGLOBIN A1C 7.1 % (4.5-5.6)
[2017-10-08 14:38] LABS: BLOOD UREA NITROGEN 10 mg/dl (7-18); CALCIUM 8.5 mg/dl (8.5-10.1); CARBON DIOXIDE 26 mmol/L (21-32); CREATININE 0.72 mg/dl (0.60-1.20); GLUCOSE 144 mg/dl (70-99); PHOSPHORUS 3.3 mg/dl (2.5-4.9); POTASSIUM 3.6 mmol/L (3.5-5.1); SODIUM 139 mmol/L (136-145)
== END | disposition home or self-care (01) ==
LOC: C.LABWYN 17:59
PROVIDERS: ATTEND Family Medicine
DX: D64.9 Anemia, unspecified (principal); E11.9 Type 2 diabetes mellitus without complications

== ENCOUNTER → 2017-10-14 | Outpatient (CLI) | payer OTHER ==
--- NOTE | 2017-10-14 10:22 | DIAGNOSTIC IMAGING REPORT ---
CHEST 2 VIEWS ROUTINE CLINICAL HISTORY: PRIMARY LUNG NODULE lung nodule COMPARISON STUDY: 06/15/2017 FINDINGS: Improved exam from the prior study. Stable emphysematous change. No current evidence for pleural effusions. The small previously described pleural effusions bilaterally with associated left pleural reactive change has resolved. Degenerative changes left shoulder unaltered. Pre-existing right shoulder total arthroplasty. Considerable degenerative change thoracic spine with mild associated kyphosis unaltered from the prior study. IMPRESSION: Improved exam. Stable chronic emphysematous change. No acute process at the current time. The above report was generated using voice recognition software. It may contain grammatical, syntax or spelling errors. Electronically signed by: Leonard Thibodeaux M.D. 10/14/2017 10:21 AM Dictated Date/Time: 10/14/2017 10:20 AM
== END | disposition home or self-care (01) ==
LOC: C.RADPV 09:54
PROVIDERS: ATTEND Family Medicine
DX: R91.1 Solitary pulmonary nodule (principal)

== ENCOUNTER → 2018-01-30 | Outpatient (CLI) | payer OTHER ==
[2018-01-30 12:41] LABS: BASO % 0.5 %; BASO ABS # 0.04 K/uL (0-0.2); EOS ABS # 0.67 K/uL (0-0.5); HEMATOCRIT 41.5 % (37-47); HEMOGLOBIN 12.7 g/dL (12.0-16.0); LYMPH % 33.5 %; LYMPH ABS # 2.49 K/uL (1.2-3.4); MEAN CELL VOLUME 82.5 fL (80-100); MEAN CORPUSCULAR HEMOGLOBIN 25.2 pg (25-34); MEAN CORPUSCULAR HGB CONC 30.6 g/dl (32-36); MONO % 8.3 %; MONO ABS # 0.62 K/uL (0.11-0.59); NEUT % 48.7 %; NEUT ABS # 3.62 K/uL (1.4-6.5); PLATELET COUNT 264 K/uL (130-400); RED CELL DISTRIBUTION WIDTH CV 16.5 % (11.5-14.5); WHITE BLOOD COUNT 7.44 K/uL (4.8-10.8)
[2018-01-30 13:00] LABS: HEMOGLOBIN A1C 7.1 % (4.5-5.6)
== END | disposition home or self-care (01) ==
LOC: C.LABWYN 17:28
PROVIDERS: ATTEND Family Medicine
DX: D64.9 Anemia, unspecified (principal); F03.91 Unspecified dementia, unspecified severity, with behavioral disturbance; E11.9 Type 2 diabetes mellitus without complications

== ENCOUNTER → 2018-02-13 | Outpatient (CLI) | payer OTHER | END | disposition home or self-care (01) | LOC: C.LABSPEC 16:12 | PROVIDERS: ATTEND Family Medicine | DX: R19.7 Diarrhea, unspecified (principal) ==